=== PATIENT | male | born 1955 | race American Indian/Alaskan Native ===

== ENCOUNTER 2017-11-09 13:42 | Emergency (ER) | payer MEDICAID, SELFPAY ==
[2017-11-09 13:49] VITALS: BP 140/94; PULSE 118; RESP 22; TEMP 37.1; O2SAT 100
--- NOTE | 2017-11-09 15:05 | ED.LOWEXIN ---
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 He states that he has had discomfort to the area for the past couple of days. He denies any purulent drainage from the area. He denies any fevers or chills. No known trauma to the area with the exception of the scratch to the area. He denies any other concerns or complaints. Related Data Home Medications Medication Instructions Recorded Confirmed Pain Medication 1 dose PO DIRECTED 11/10/17 11/10/17 metformin 1 tab PO BID 11/10/17 11/10/17 metoprolol tartrate 50 mg PO BID 11/10/17 11/10/17 naloxone 1 dose INTRANASAL DIRECTED 11/10/17 11/10/17 olanzapine 10 mg PO BID 11/10/17 11/10/17 tamsulosin 0.8 mg PO DAILY 11/10/17 11/10/17 Previous Rx's Medication Instructions Recorded alprazolam [Xanax] 1 mg PO BIDP PRN #5 tab 08/13/16 clindamycin HCl 300 mg PO QID #28 cap 11/09/17 alprazolam [Xanax] 1 mg PO BID PRN #14 tab 11/11/17 aspirin 325 mg PO DAILY #90 tab 11/11/17 nitroglycerin [Nitrostat] 0.4 mg SUBLINGUAL [id number] PRN #1 11/11/17 tab Allergies Allergy/AdvReac Type Severity Reaction Status Date / Time baclofen [BACLOFEN] Allergy Intermediate REACTS TO Verified 11/10/17 04:07 HIS METFORMIN ketorolac [From TORADOL] Allergy Intermediate HIVES Verified 11/10/17 04:07 Review of Systems <ALEX Butler - Last Filed: 11/09/17 22:04> Constitutional Denies chills, Denies fever(s), Denies lethargy and Denies weakness Eyes Denies change in vision, Denies eye discharge, Denies irritation and Denies loss of vision ENT Ears, Nose, Mouth, and Throat: Denies change in voice, Denies neck pain and Denies sore throat Cardiovascular Denies chest pain, Denies irregular heart rhythm, Denies lightheadedness, Denies palpitations, Denies dyspnea, Denies dyspnea on exertion and Denies orthopnea Respiratory Denies cough, Denies dyspnea, Denies dyspnea on exertion and Denies wheezing Gastrointestinal Gastrointestinal: Denies abdominal pain, Denies change in bowel habits, Denies diarrhea, Denies nausea and Denies vomiting Genitourinary Denies hematuria, Denies flank pain, Denies urinary incontinence and Denies urinary urgency Musculoskeletal Denies neck pain Comments: Right lower leg redness and pain Integumentary/Breasts Denies pruritus, Denies erythema, Denies rash and Denies wounds Neurologic Denies confusion, Denies loss of vision and Denies weakness Psychiatric Denies anxiety, Denies confusion, Denies depression, Denies homicidal ideation and Denies suicidal ideation Endocrine Denies palpitations Allergic/Immunologic Denies wheezing Exam <ALEX Butler - Last Filed: 11/09/17 22:04> Initial Vital Signs Initial Vital Signs: Vital Signs Temperature 98.7 F 11/09/17 13:49 Pulse Rate 118 H 11/09/17 13:49 Respiratory Rate 22 11/09/17 13:49 Blood Pressure 140/94 H 11/09/17 13:49 Pulse Oximetry 100 11/09/17 13:49 Const General: cooperative and No acute distress Orientation: alert, awake, oriented x3 and not confused HENMD Mouth: oral mucosae normal and moist mucous membranes Eyes Sclera: sclerae normal Cornea: corneas normal EOM: EOM intact bilaterally Resp Effort & Inspection: normal respiratory effort, able to speak in complete sentences, no respiratory distress and no use of accessory muscles Auscultation: clear to auscultation bilaterally, no rales, no rhonchi and no wheezes Cardio Rate: regular rate Rhythm: regular rhythm Heart Sounds: no click, no gallops, no murmurs and no rubs Skin General: No jaundice and No petechiae Extrem Other: Right lower extremity with multiple areas of excoriation and picking. Area with excoriation to the right lower extremity medial aspect with small area of erythema around it. No induration and no fluctuance. Distal CMS is intact. <Carly Boyer DO - Last Filed: 11/12/17 19:59> Initial Vital Signs Initial Vital Signs: Vital Signs Temperature 98.7 F 11/09/17 13:49 Pulse Rate 118 H 11/09/17 13:49 Respiratory Rate 22 11/09/17 13:49 Blood Pressure 140/94 H 11/09/17 13:49 Pulse Oximetry 100 11/09/17 13:49 Course <ALEX Butler - Last Filed: 11/09/17 22:04> Vital Signs - 8 hr 11/09/17 15:13 Pulse Rate 113 H Respiratory Rate 18 Blood Pressure [Left Arm] 128/94 H Pulse Oximetry 100 <Carly Boyer DO - Last Filed: 11/12/17 19:59> Vital Signs - 8 hr 11/09/17 15:13 Pulse Rate 113 H Respiratory Rate 18 Blood Pressure [Left Arm] 128/94 H Pulse Oximetry 100 MDM - Extremity Injury (Lower) <ALEX Butler - Last Filed: 11/09/17 22:04> MDM Narrative Medical decision making narrative: Suspect excoriation and multiple areas of picking secondary to methamphetamine use. Elevated heart rate also believed to be secondary to methamphetamine use. Due to erythema to the right lower extremity will cover for starting cellulitis with clindamycin. He is instructed to follow up with primary care provider later this week for re-evaluation. [id number] Tylenol as needed for any discomfort. For any worsening symptoms return to the emergency room. Discharge Plan Departure Patient Disposition: Home, Self-Care Clinical Impression: Cellulitis of right leg Discharge Date/Time: 11/09/17 16:32 Interventions: ED Discharge Assessment Last Done: 11/09/17 16:27 Instructions: DI for Cellulitis -- Adult Activity Restrictions/Additional Instructions: Redness and tenderness to the right lower extremity looks like starting cellulitis was infection of the skin secondary to excoriation and scratches. You have been prescribed a antibiotic called clindamycin use as directed. Follow up with her primary care provider in the next few days for re-evaluation. For any worsening symptoms return to the emergency room. Use [id number] Tylenol as needed for any discomfort. Prescriptions: New clindamycin HCl 300 mg capsule 300 mg PO QID Qty: 28 RF: 0 No Action alprazolam [Xanax] 1 MG tablet 1 mg PO BIDP PRNQty: 5 RF: 0 metformin 1,000 mg tablet 1 tab PO BID RF: 0 metoprolol tartrate 50 mg tablet 50 mg PO BID RF: 0 naloxone 4 mg/actuation spray,non-aerosol 1 dose Intranasal DIRECTED RF: 0 tamsulosin 0.4 mg capsule,extended release 24hr 0.8 mg PO DAILY RF: 0 olanzapine 10 mg tablet 10 mg PO BID RF: 0 Pain Medication 1 dose PO DIRECTED RF: 0 aspirin 325 mg Tablet,Delayed Release (Dr/Ec) 325 mg PO DAILY Qty: 90 RF: 0 nitroglycerin [Nitrostat] 0.4 mg Tablet, Sublingual 0.4 mg Sublingual [id number] PRN (Reason: Chest Pain) Qty: 1 RF: 0 alprazolam [Xanax] 1 mg tablet 1 mg PO BID PRN (Reason: anxiety) Qty: 14 RF: 0 Referrals: Jacky Rios MD [Primary Care Provider] - <Carly Boyer DO - Last Filed: 11/12/17 19:59> [facility] I was immediately available in the department for consultation. Documentation has been reviewed. I agree with assessment and plan.
[2017-11-09 15:13] VITALS: BP 128/94; PULSE 113; RESP 18; O2SAT 100
--- NOTE | 2017-11-09 16:30 | PC.NURSE ---
Rt lower leg redness surrounding mulitple superficial abrasions, pt reports he has been scratching are for some time, distal cms intact, nontender, no swelling, cool to touch, denies never/numbness/tingling/nausea or other sx, amb ind with steady gait
== END 2017-11-09 16:32 | disposition home or self-care (01) ==
PROVIDERS: Emergency Provider Nurse Practitioner Family; Family Provider Family Medicine; PCP Family Medicine
DX: L03.115 Cellulitis of right lower limb (principal)
CPT/HCPCS: 99282

== ENCOUNTER 2017-11-10 03:50 | Observation (INO) | payer MEDICAID, SELFPAY ==
[2017-11-10] VITALS (7 sets, daily range): BP systolic 120–154; BP diastolic 59–102; PULSE 63–118; RESP 12–22; TEMP 36.1–37; O2SAT 95–100; BMI 22.8
--- NOTE | 2017-11-10 | DI.ECHO.S_ITS ---
[facility] +---------+ [facility] +---------+ : : [address] : : : : [id number] : : : : Phone: [phone] Echocardiogram Report + + :Name: RAY HART Study Date: 11/10/2017 Height: 69 in : :[facility] Weight: 155 lb : : Gender: Male BSA: 1.9 m2 : :: 1955 Age: 62 yrs BP: 130/92 mmHg: :Reason For Study: chest pain : : Performed By: Jeanette Olson : :Referring: JOSE STRANGE : + + Interpretation Summary 1) Normal left ventricular thickness, size, wall motion, and systolic function (EF 60-65%). 2) Normal right ventricular size and function. 3) No significant valvular abnormalities. 4) The right ventricular systolic pressure is estimated at 25 mmHg assuming a right atrial pressure of 3 mm Hg. 5) Compared to the Echo done 01/16/2015, pulmonary artery pressures are normal on this study. Procedure: A two-dimensional transthoracic echocardiogram with color flow and Doppler was performed. Comparison is made with the echocardiogram of 01/16/2015. The study quality was technically difficult as the patient could not be still and was unable to cooperate. Also being the reason for so much EKG artifact. The heart rate ranged between 75-95 bpm during the study. Left Ventricle: The left ventricle is normal in size, wall thickness, and systolic function without any focal wall motion abnormalities. The ejection fraction is estimated to be 60-65%. Right Ventricle: The right ventricle is mildly dilated. The right ventricular systolic function is normal. Atria: The left atrium is borderline dilated. The right atrium is normal in size. There is no Doppler evidence for an interatrial shunt. Mitral Valve: The mitral valve is normal in structure and function. There is trace mitral regurgitation. Aortic Valve: The aortic valve is normal in structure and function. There is no aortic valve stenosis. No aortic regurgitation is present. Tricuspid Valve: The tricuspid valve is normal in structure and function. There is a trace or physiologic amount of tricuspid regurgitation. The right ventricular systolic pressure is estimated at 25 mmHg assuming a right atrial pressure of 3 mm Hg. Pulmonic Valve: The pulmonic valve is normal in structure and function. There is a trace or physiologic amount of pulmonic regurgitation. Great Vessels: Aortic root is at the upper limits of normal in size. The ascending aorta is at the upper limits of normal in size. The aortic arch is at the upper limits of normal in size. The pulmonary artery is normal size. The IVC is of normal diameter and collapses greater than 50% with a sniff. This suggests a low right atrial pressure of 3 mm Hg. Pericardium/ Pleura There is no pericardial effusion. There is no pleural effusion. MMode/2D Measurements & Calculations LVIDd: 4.6 cm LVOT diam: 2.0 cm LVIDs: 3.4 cm Ao root diam: 3.9 cm FS: 26.2 % asc Aorta Diam: 3.6 cm EPSS: 0.57 cm Ao Arch Diam (distal): 3.1 cm IVSd: 0.79 cm LVPWd: 0.74 cm LV lehman. diameter/BSA (cm/m^2): 2.5 LV sys. diameter/BSA (cm/m^2): 1.8 LA A2 area: 20.1 cm2 RA long axis: 4.8 cm LA A4 area: 18.4 cm2 RA area: 13.8 cm2 LA length (vol): 5.0 cm RA vol: 33.4 ml LA vol: 63.3 ml RA : 18.0 ml/m2 LA vol index: 34.1 ml/m2 IVC diam: 1.2 cm RVD1 (basal): 2.8 cm TAPSE: 2.4 cm Doppler Measurements & Calculations Ao V2 max: 93.0 cm/sec LVOT Max Albaro: 67.4 cm/sec Ao V2 mean: 68.1 cm/sec LV V1 max P.8 mmHg Ao max P.5 mmHg LV V1 VTI: 12.5 cm Ao mean P.0 mmHg RANCHO(I,D): 2.4 cm2 Ao V2 VTI: 17.4 cm RANCHO(V,D): 2.4 cm2 sev ratio: 0.72 RANCHO indexed to BSA (cm^2/m^2): 1.3 MV E max albaro: 71.6 cm/sec TR max albaro: 233.7 cm/sec MV A max albaro: 56.8 cm/sec TR max P.8 mmHg MV E/A: 1.3 PA V2 max: 47.9 cm/sec Med Peak E' Albaro: 8.5 cm/sec PA V2 mean: 35.0 cm/sec E/E' med: 8.4 PA mean P.54 mmHg Lat Peak E' Albaro: 9.7 cm/sec E/E' lat: 7.4 E/e' average: 7.9 MV P1/2t: 73.6 msec MV 2t max albaro: 71.6 cm/sec MVA(2t): 3.0 cm2 Reading Physician:04:50 PM
[2017-11-10 04:31] LABS: Add Manual Diff / Slide Review NO; Basophils Percent Auto 0.6 % (0-2); Eosinophils Percent Auto 1.2 % (2-4); Hematocrit 38.1 % (41-53); Hemoglobin 12.8 g/dL (13.5-17.5); Lymphocytes Percent Auto 15.8 % (25-40); Mean Corpuscular HGB Conc 33.5 % (30-36); Mean Corpuscular Hemoglobin 27.7 PG (26-34); Mean Corpuscular Volume 82.7 fL (80-100); Monocytes Percent Auto 13.3 % (3-14); Neutrophils Absolute Auto 7200 /uL (3000-5900); Neutrophils Percent Auto 69.1 % (50-75); Platelet Count 230 X10^3/uL (150-400); Red Blood Cell Count 4.61 X10^6/uL (4.5-5.9); Red Cell Distribution Width 14.9 % (11.6-14.8); White Blood Cell Count 10.5 X10^3/uL (4.5-11.0)
[2017-11-10 04:39] LABS: D Dimer 740 ng/mL (<230)
[2017-11-10 04:41] LABS: Alanine Aminotransferase 123 IU/L (21-72); Albumin 4.1 g/dL (3.5-5.0); Albumin Globulin Ratio 0.9 (1.0-2.8); Alkaline Phosphatase 106 U/L (38-126); Aspartate Aminotransferase 85 IU/L (17-59); BUN Creatinine Ratio 12.5 (6-22); Bilirubin Total 0.6 mg/dL (0.2-1.3); Blood Urea Nitrogen 10 mg/dL (9-20); Calcium 9.2 mg/dL (8.4-10.2); Carbon Dioxide 21 mmol/L (22-32); Chloride 105 mmol/L (98-107); Estimated Glomerular Filt Rate > 60.0 mL/min (>60); Globulin 4.5 g/dL (1.7-4.1); Glucose 148 mg/dL (80-110); HEMOLYSIS < 15 (0-50); Lipase 66 U/L (23-300); Potassium 3.8 mmol/L (3.4-5.1); Sodium 144 mmol/L (137-145); Total Protein 8.6 g/dL (6.3-8.2)
[2017-11-10 04:52] LABS: Troponin I < 0.012 ng/mL (0.01-0.034)
--- NOTE | 2017-11-10 04:53 | DI.CT.S_ITS ---
PROCEDURE: CT ANGIO CHEST ABDOMEN PELVIS INDICATIONS: left arm and leg weakness, chest pain - dissection protocol TECHNIQUE: Precontrast 5 mm thick sections acquired from the lung apices to the iliac crests. After the administration of intravenous contrast, 2.5 mm thick sections again acquired from the lung apices to the iliac crests. Maximum intensity projection (MIP) oblique sagittal and coronal reformats were then acquired. For radiation dose reduction, the following was used: automated exposure control. COMPARISON: [facility], CT, PE STUDY (CTA CHEST), 10/23/2014, 21:49. FINDINGS: Preliminary report by lineman service or work dispatcher radiology Image quality: Excellent. AORTA: Intramural hematoma: Absent Maximum hematoma thickness: N./A. Focal contrast enhancement: Normal Dissection: Absent Josue classification: N./A. Maximum aortic diameter: 3.6 cm. Periaortic hematoma: Absent CHEST: Lungs and pleura: No acute airspace opacities. No pleural effusions or pneumothorax. Central and peripheral airways are patent and normal in caliber. Mediastinum: Heart size is normal. No pericardial effusion. Borderline mediastinal adenopathy at 1 cm short diameter by size criteria. Central pulmonary arteries are normal in size. Esophagus is normal in caliber. No hiatal hernias. Bones and chest wall: No axillary adenopathy by size criteria. Several old left-sided rib fracture deformities. Thyroid gland appears normal. No suspicious bony lesions. No vertebral body compression fractures. ABDOMEN: Vasculature: No aortic aneurysm or dissection. Atheromatous plaque. Celiac trunk and mesenteric arteries are patent. Renal arteries are also patent. Solid organs: Liver is normal in size with diffuse decreased attenuation. Gallbladder contains a stone as before. No gallbladder wall thickening or inflammation. Biliary system is non dilated. Pancreas enhances normally. Spleen is normal in size and enhancement. No adrenal nodules. Both kidneys are normal in size and enhancement, without hydronephrosis. Both kidneys contain cortical hypodensities, too small to characterize but likely simple cysts. Peritoneum and bowel: No free fluid or air. Bowel loops are normal in caliber and wall thickness. The appendix is not seen. Nodes and vessels: No retroperitoneal or mesenteric adenopathy by size criteria. Inferior vena cava is normal in morphology. Miscellaneous: Rectus diastases. Small fat filled umbilical hernia. PELVIS: Genitourinary: Bladder wall thickness is normal. Miscellaneous: Fat filled right inguinal hernia, no adenopathy. Bones: No suspicious bony lesions. No vertebral body compression fractures. IMPRESSION: 1. No aortic aneurysm or dissection is identified. Heart size appears normal. No pulmonary edema or focal consolidation. 2. Cholelithiasis without evidence of cholecystitis. 3. Diastases of the superior linea alba. Small umbilical hernia. Fat filled right inguinal hernia. Findings are concordant with the preliminary report. Dictated by: Hector Azar M.D. on 11/10/2017 at 8:12 Approved by: Hector Azar M.D. on 11/10/2017 at 8:28
[2017-11-10 05:04] LABS: Urine Amphetamines Positive (Negative); Urine Barbiturates Negative (Negative); Urine Benzodiazepines Negative (Negative); Urine Cocaine Negative (Negative); Urine MDMA Negative (Negative); Urine Methadone Negative (Negative); Urine Methamphetamines Positive (Negative); Urine Morphine/Opi cutoff 2000 Positive (Negative); Urine Oxycodone Negative (Negative); Urine Phencyclidine Negative (Negative); Urine Tetrahydrocannabinol Negative (Negative); Urine Tricyclic Antidepressant Negative (Negative)
--- NOTE | 2017-11-10 05:19 | DI.CT.S_ITS ---
PROCEDURE: CT HEAD/BRAIN WO CON INDICATIONS: left arm and leg weakness TECHNIQUE: Noncontrast 4.5 mm thick angled axial sections acquired from the foramen magnum to the vertex, with coronal and sagittal reformats. For radiation dose reduction, the following was used: automated exposure control, adjustment of mA and/or kV according to patient size. Intravenous contrast material is present secondary to CT angiogram of the chest and abdomen performed prior to scan of the head. COMPARISON: [facility], CT, HEAD WITH CONTRAST, 10/09/2014, 18:59. FINDINGS: Image quality: Diagnostic sensitivity for subtle intracranial hemorrhage diminished secondary presence of intravenous contrast. CSF spaces: Basal cisterns are patent. No extra-axial fluid collections. The ventricles are symmetric in size and shape. Brain: No intracranial bleeds or masses. There is cerebral volume loss for age, with resultant ventricular and sulcal prominence. There are periventricular and deep white matter chronic small vessel ischemic changes. There is intracranial internal carotid artery atherosclerosis. Skull and face: Calvarium and visualized facial bones appear intact, without suspicious lesions. Sinuses: Visualized sinuses and mastoids are clear. IMPRESSION: No acute intracranial disease process. Dictated by: Herlinda Farley MD, PhD on 11/10/2017 at 7:26 Approved by: Herlinda Farley MD, PhD on 11/10/2017 at 7:29
--- NOTE | 2017-11-10 05:26 | PC.NURSE ---
pt reports having difficulty reading stating everything is blurry. pt reports difficulty with balance, states he's been tripping on air all day. When asked to clarify states He's stumbling and tripping on stuff that ain't there.
[2017-11-10 06:55] LABS: Troponin I < 0.012 ng/mL (0.01-0.034)
[2017-11-10] MEDS: ASPIRIN 81 MG TAB 324 MG PO (06:55)
--- NOTE | 2017-11-10 06:55 | ED.CHESTPAIN ---
HPI - Chest Pain General Chief Complaint: Chest Pain Stated Complaint: shortness of breath had two heart attacks History of Present Illness HPI narrative: HPI 62-year-old male smoker with active ongoing IVDU presents for evaluation of one hour of poorly characterized substernal chest pain that does not appear to be rating, endorses poorly described left hand and left foot paresthesias as well as a possible change in gait. Denies fevers, chills, headache, changes in vision or hearing. Patient endorses a history of Morgellons disease. Patient reports an episode of chest pain approximately 10 years ago after which she received a stress test those reportedly abnormal enduring discussion of cardiac catheterization would likely stenting the patient walked out of the hospital and received no further care. The patient walked out as he did not want to consider having a stent. M/S/F/SocHx notable for: please see HPI; remainder reviewed with patient and in chart. ROS: Negative constitutional, eye, cardiovascular, pulmonary, GI, , MSK, skin, neurologic, psychiatric, endocrine unless noted in the HPI. Exam Gen: Pleasant, non-toxic appearing, resting comfortably. HEENT: NC, AT, PEERL, EOMI. Resp: Clear to auscultation bilaterally, normal work of breathing, no accessory muscle usage. Card: Regular rate and rhythm with no murmurs, rubs, or gallops, extremities warm and well perfused. GI: Non-tender to palpation throughout all quadrants, no focal tenderness at McBurney's point, negative Draper's sign, non-distended, no rebound or guarding. : No suprapubic tenderness to palpation. MSK: No visible deformities, strength and tone without visually appreciable deficit. Vascular: 2+ radial pulses bilaterally, both feet warm and well perfused with 1+ DP pulses bilaterally. Skin: multiple skin picking allen, otherwise normal color with no further appreciable lesions. Neuro: Gen AO x 3, no facial asymmetry, no gaze preference, no slurring of speech. CN II-III: pupils equal and reactive (4->2mm bilaterally); III, IV, : EOMI, V1-V3: sensation to touch bilaterally intact; VII: no facial asymmetry (frown / smile); VIII: no nystagmus; X: phonation intact, uvula midline; XI: trapezius 5/5 bilaterally, XII: tongue midline. Cerebellar: no pronator drift, bilateral upper extremities without dysmetria. Psych: Mood and affect appropriate. Labs / Imaging: EKG: SR 114 bpm, nonspecific ST segment depressions in V3 through V6, no further ST segment changes. No LBBB. EKG (repeat): SR 89 bpm, reduction in ST segment depressions in leads V4-V6. No further changes. WBC 10.5, HB 12.8, d-dimer 740, NA 144, K 3.8, total bilirubin 0.6, AST 85, ALT 123, ALP 106, lipase 66, UDS with opiates, amphetamines, and methamphetamines. Troponin (4:15 AM) <0.012, troponin (6:25 AM) pending. CT head: no acute intracranial abnormality. CTA chest/abdomen/pelvis: no acute intrathoracic abnormalities. Minimal chronic changes. Borderline mediastinal incident. Old rib fractures. Cholelithiasis. MDM Previous chart, nursing note, labs, imaging, and vitals reviewed. A: 62-year-old male smoker with active ongoing IVDU presents for evaluation of one hour of poorly characterized substernal chest pain that does not appear to be rating, endorses poorly described left hand and left foot paresthesias as well as a possible change in gait. DDx: ACS, unstable angina, PE, dissection, pneumothorax, biliary disease, pancreatitis, pericardial effusion, pleural effusion, pericarditis, myocarditis, CVA, chest pain secondary to stimulant abuse. Evaluation: unstable angina felt to be the most likely cause of the patient's symptoms at the time of his evaluation in the emergency department. Patient changes in ST segment depressions that appear to be rate related, and had a relatively exclusionary remainder of his evaluation. The patient's HEART score is 6. doubt ACS given a non-ischemic ECG and negative serial troponins (initial ECG with nonspecific ST segment changes, repeat - when the patient was resting and had resolution of tachycardia - was without evidence of ST segment changes). Similarly, no evidence of pericarditis or myocarditis. Imaging without evidence of dissection, pneumothorax, pleural effusions, pericardial effusion. Patient neuro exam is without objective focal deficits, CT head is unremarkable, and there are no high-risk features to suggest the posterior fossa stroke that require an MRI for definitive evaluation. Lipase WNL, given the absence of right upper quadrant pain in her normal bilirubin and ALP strongly doubt choledocholithiasis/cholecystitis/cholangitis. CT does not cholelithiasis, however the patient's overall presentation is not strongly suggestive of biliary colic. Also considered on the differential with endocarditis, this is felt to be less likely given the absence of leukocytosis or fever. No clear evidence of esophageal rupture or impending rupture. PE was considered on the differential, the patient had an elevated d-dimer, however his CTA was protocolized to evaluate for dissection as this was felt to be the most high-risk diagnosis that the patient may reasonably have, no significant abnormalities were noted on this imaging, and as the patient had resolution of his tachycardia with rest, was without shortness breath, hypoxemia, or hypotension further emergent evaluation in the ED is not felt to be presently warranted, further evaluation deferred to the admitting physician. With respect to the concerns of the patient's possible unstable angina discussion was had regarding the patient's wishes for goals of treatment. Patient notes that in contrast to his prior interaction he would like to pursue evaluation that may lead to cardiac catheterization and/or surgery or stenting. As cardiology is not available at this facility at [facility] cardiology was contacted. Discussed case with Dr. Buckley, patient appropriate for stress test, [facility] cardiology would accept patient after positive stress test or positive troponin. ED Course: aspirin given. Disposition: patient admitted for further care. Impression: chest pain. (please reference below for remainder of encounter information) HEART Calculation: Hx - 1, EKG - 2, age - 1, risk factors - 2, troponin - 0; 30 day MACE: 50-65%. Related Data Previous Rx's Medication Instructions Recorded alprazolam [Xanax] 1 mg PO BIDP PRN #5 tab 08/13/16 olanzapine [Zyprexa] 10 mg PO BID #28 tab 08/13/16 doxycycline hyclate 100 mg PO Q12H #20 cap 11/01/16 cephalexin [Keflex] 500 mg PO TID #30 cap 11/07/16 sulfamethoxazole-trimethoprim 1 tab PO BID #20 tab 11/07/16 sulfamethoxazole-trimethoprim 1 tab PO BID #14 tab 02/05/17 mupirocin 0 jose TOPICAL TID #22 gm 02/10/17 mupirocin 0 jose TOPICAL TID #22 gm 03/10/17 clindamycin HCl 300 mg PO QID #28 cap 11/09/17 Allergies Allergy/AdvReac Type Severity Reaction Status Date / Time baclofen [BACLOFEN] Allergy Intermediate REACTS TO Verified 11/10/17 04:07 HIS METFORMIN ketorolac [From TORADOL] Allergy Intermediate HIVES Verified 11/10/17 04:07 PFS Social History Smoking Status: Current every day smoker Exam Initial Vital Signs Initial Vital Signs: Vital Signs Temperature 98.5 F 11/10/17 04:02 Pulse Rate 118 H 11/10/17 04:02 Respiratory Rate 22 11/10/17 04:02 Blood Pressure 154/102 H 11/10/17 04:02 Pulse Oximetry 100 11/10/17 04:02 Course Orders Ordered: ED Orders 11/10/17 EKG-12 Lead Routine 11/10/17 04:15 Complete Blood Count AUTO DIFF Stat Comprehensive Metabolic Panel Stat D Dimer Stat Lipase Stat Troponin I Stat 11/10/17 04:52 Rapid Drug Screen, Urine Stat 11/10/17 04:53 CT angio chest abdomen pelvis Stat 11/10/17 05:19 CT head/brain wo con Stat 11/10/17 06:24 EKG-12 Lead Stat 11/10/17 06:25 Troponin I Stat 11/10/17 06:52 Consult to Physician Routine Discontinued Medications Aspirin (Aspirin Chew) 324 mg PO NOW ONE Stop: 11/10/17 06:49 Vital Signs - 8 hr 11/10/17 04:02 11/10/17 05:21 Temperature 98.5 F Pulse Rate 118 H 104 H Respiratory Rate 22 12 Blood Pressure 154/102 H Blood Pressure [Left Arm] 143/95 H Pulse Oximetry 100 100 MDM - Chest Pain Lab Data Result diagrams: 11/10/17 04:15 11/10/17 04:15 Lab Results 11/10/17 11/10/17 11/10/17 Range/Units 04:15 04:15 04:15 WBC 10.5 (4.5-11.0) X10^3/uL RBC 4.61 (4.5-5.9) X10^6/uL Hgb 12.8 L (13.5-17.5) g/dL Hct 38.1 L (41-53) % MCV 82.7 (80-100) fL MCH 27.7 (26-34) PG MCHC 33.5 (30-36) % RDW 14.9 H (11.6-14.8) % Plt Count 230 (150-400) X10^3/uL Neut % (Auto) 69.1 (50-75) % Lymph % (Auto) 15.8 L (25-40) % [place] % (Auto) 13.3 (3-14) % Eos % (Auto) 1.2 L (2-4) % Baso % (Auto) 0.6 (0-2) % Neut # (Auto) 7200 H (1869-3244) /uL D-Dimer 740 H (<230) ng/mL Sodium 144 (137-145) mmol/L Potassium 3.8 (3.4-5.1) mmol/L Chloride 105 (98-107) mmol/L Carbon Dioxide 21 L (22-32) mmol/L BUN 10 (9-20) mg/dL Creatinine 0.80 (0.66-1.25) mg/dL Estimated GFR > 60.0 (>60) mL/min BUN/Creatinine Ratio 12.5 (6-22) Glucose 148 H (80-110) mg/dL Calcium 9.2 (8.4-10.2) mg/dL Total Bilirubin 0.6 (0.2-1.3) mg/dL AST 85 H (17-59) IU/L ALT 123 H (21-72) IU/L Alkaline Phosphatase 106 (38-126) U/L Troponin I < 0.012 (0.01-0.034) ng/mL Total Protein 8.6 H (6.3-8.2) g/dL Albumin 4.1 (3.5-5.0) g/dL Globulin 4.5 H (1.7-4.1) g/dL Albumin/Globulin Ratio 0.9 L (1.0-2.8) Lipase 66 (23-300) U/L Urine Opiates Screen (Negative) Ur Oxycodone Screen (Negative) Urine Methadone Screen (Negative) Ur Barbiturates Screen (Negative) U Tricyclic Antidepress (Negative) Ur Phencyclidine Scrn (Negative) Ur Amphetamines Screen (Negative) U Methamphetamines Scrn (Negative) Ur MDMA Scrn (Ecstasy) (Negative) U Benzodiazepines Scrn (Negative) Urine Cocaine Screen (Negative) U Marijuana (THC) Screen (Negative) 11/10/17 Range/Units 04:52 WBC (4.5-11.0) X10^3/uL RBC (4.5-5.9) X10^6/uL Hgb (13.5-17.5) g/dL Hct (41-53) % MCV (80-100) fL MCH (26-34) PG MCHC (30-36) % RDW (11.6-14.8) % Plt Count (150-400) X10^3/uL Neut % (Auto) (50-75) % Lymph % (Auto) (25-40) % [place] % (Auto) (3-14) % Eos % (Auto) (2-4) % Baso % (Auto) (0-2) % Neut # (Auto) (1721-1904) /uL D-Dimer (<230) ng/mL Sodium (137-145) mmol/L Potassium (3.4-5.1) mmol/L Chloride (98-107) mmol/L Carbon Dioxide (22-32) mmol/L BUN (9-20) mg/dL Creatinine (0.66-1.25) mg/dL Estimated GFR (>60) mL/min BUN/Creatinine Ratio (6-22) Glucose (80-110) mg/dL Calcium (8.4-10.2) mg/dL Total Bilirubin (0.2-1.3) mg/dL AST (17-59) IU/L ALT (21-72) IU/L Alkaline Phosphatase (38-126) U/L Troponin I (0.01-0.034) ng/mL Total Protein (6.3-8.2) g/dL Albumin (3.5-5.0) g/dL Globulin (1.7-4.1) g/dL Albumin/Globulin Ratio (1.0-2.8) Lipase (23-300) U/L Urine Opiates Screen Positive H (Negative) Ur Oxycodone Screen Negative (Negative) Urine Methadone Screen Negative (Negative) Ur Barbiturates Screen Negative (Negative) U Tricyclic Antidepress Negative (Negative) Ur Phencyclidine Scrn Negative (Negative) Ur Amphetamines Screen Positive H (Negative) U Methamphetamines Scrn Positive H (Negative) Ur MDMA Scrn (Ecstasy) Negative (Negative) U Benzodiazepines Scrn Negative (Negative) Urine Cocaine Screen Negative (Negative) U Marijuana (THC) Screen Negative (Negative) Discharge Plan Departure Patient Disposition: Admitted as Observation Clinical Impression: Chest pain
--- NOTE | 2017-11-10 08:06 | PC.NURSE ---
Day shift: Arrived on unit at approx 0750 from ED. Pt urinated and is in bed now. He is calm and cooperative. No nausea. Reports no pain at this time. Tele placed by TECHNICAL WRITING LEAD/MGR and HVAC ENGINEER aware. Pt agrees to not get OOB w/o help from staff. Oriented to room and call light.
--- NOTE | 2017-11-10 08:34 | PC.NURSE ---
Day shift: No MD orders at this time.
--- NOTE | 2017-11-10 09:37 | PC.NURSE ---
Day shift: Pt asked Is the doctor going to come? at this time. Call light in reach. Pt repositioning himself often in bed. States he has some back pain. Pt also stated he has DM and takes Metformin. His BG was 123 on arrival to this unit.
--- NOTE | 2017-11-10 10:25 | PC.NURSE ---
Day shift: Pt c/o low back pain 01/02. aware.
[2017-11-10] MEDS: OXYCODONE IR 5 MG TABLET 10 MG PO ×3 (10:50→19:55)
--- NOTE | 2017-11-10 10:50 | P.HP_ITS ---
History of Present Illness Date Patient Seen: 11/10/17 Time Patient Seen: 10:46 Chief complaint: shortness of breath had two heart attacks Narrative: 62-year-old male presents with chest pain somewhat atypical presentation with chest pain at rest. Also complaining of severe back pain. He was seen earlier the day before with some cellulitis in his lower extremity placed on clindamycin then returned again this morning with chest pain he says that he has had a history of cardiac problems 10 years ago who recommended a stent but he declined at that time. Does have a history of drug abuse admits to using heroin as recently as 3 weeks ago and had been on methadone until he had a falling out with his counselor recently. Patient History Medical History Back pain (Acute) Heroin abuse (Acute) Heroin addiction (Acute) Family & Social History Social History: household members spouse Prior Living Arrangements RV Safety & Behavioral: Feels Safe in Current Yes Environment Been Physically Hurt or No Threatened By a Person Suicidal Ideation Description None Suicide Plan Description No Plan Tobacco & Substance use: Tobacco type cigarettes Smoking Status Current every day smoker alcohol intake former alcohol intake frequency 0-2 drinks per day Substance Use Type IV drugs Meds Home Medications Medication Instructions Recorded Confirmed Type alprazolam [Xanax] 1 mg PO BIDP PRN #5 tab 08/13/16 11/10/17 Rx clindamycin HCl 300 mg PO QID #28 cap 11/09/17 11/10/17 Rx Pain Medication 1 dose PO DIRECTED 11/10/17 11/10/17 History metformin 1 tab PO BID 11/10/17 11/10/17 History metoprolol tartrate 50 mg PO BID 11/10/17 11/10/17 History naloxone [Narcan] 1 dose INTRANASAL DIRECTED 11/10/17 11/10/17 History olanzapine 10 mg PO BID 11/10/17 11/10/17 History tamsulosin 0.8 mg PO DAILY 11/10/17 11/10/17 History Allergies Allergy/AdvReac Type Severity Reaction Status Date / Time baclofen [BACLOFEN] Allergy Intermediate REACTS TO Verified 11/10/17 04:07 HIS METFORMIN ketorolac [From TORADOL] Allergy Intermediate HIVES Verified 11/10/17 04:07 Review of Systems Review of Systems All systems reviewed & are unremarkable except as noted in HPI and below Exam Vital Signs (past 8 hours): Vital Signs - 8 hr 3 11/10/17 04:02 11/10/17 05:21 Temperature 98.5 F Pulse Rate 118 H 104 H Respiratory Rate 22 12 Blood Pressure 154/102 H Blood Pressure [Left Arm] 143/95 H Pulse Oximetry 100 100 Pulse Oximetry 100 Oxygen Delivery Method Room Air Narrative Exam Narrative: Middle-aged male looking much older than his stated age slightly unkept somewhat agitated Oropharynx clear Neck is supple Lungs clear Heart regular rhythm Abdomen soft nontender Skin numerous lesions on the upper extremities bilateral excoriations and papules noted Neuro exam awake alert no focal deficit Objective Labs Result Diagrams: 11/10/17 04:15 11/10/17 04:15 Labs: Laboratory Results - last 24 hr 11/10/17 11/10/17 11/10/17 04:15 04:15 04:15 WBC 10.5 RBC 4.61 Hgb 12.8 L Hct 38.1 L MCV 82.7 MCH 27.7 MCHC 33.5 RDW 14.9 H Plt Count 230 Neut % (Auto) 69.1 Lymph % (Auto) 15.8 L [place] % (Auto) 13.3 Eos % (Auto) 1.2 L Baso % (Auto) 0.6 Neut # (Auto) 7200 H D-Dimer 740 H Sodium 144 Potassium 3.8 Chloride 105 Carbon Dioxide 21 L BUN 10 Creatinine 0.80 Estimated GFR > 60.0 BUN/Creatinine Ratio 12.5 Glucose 148 H Calcium 9.2 Total Bilirubin 0.6 AST 85 H ALT 123 H Alkaline Phosphatase 106 Troponin I < 0.012 Total Protein 8.6 H Albumin 4.1 Globulin 4.5 H Albumin/Globulin Ratio 0.9 L Lipase 66 Urine Opiates Screen Ur Oxycodone Screen Urine Methadone Screen Ur Barbiturates Screen U Tricyclic Antidepress Ur Phencyclidine Scrn Ur Amphetamines Screen U Methamphetamines Scrn Ur MDMA Scrn (Ecstasy) U Benzodiazepines Scrn Urine Cocaine Screen U Marijuana (THC) Screen 11/10/17 11/10/17 04:52 06:25 WBC RBC Hgb Hct MCV MCH MCHC RDW Plt Count Neut % (Auto) Lymph % (Auto) [place] % (Auto) Eos % (Auto) Baso % (Auto) Neut # (Auto) D-Dimer Sodium Potassium Chloride Carbon Dioxide BUN Creatinine Estimated GFR BUN/Creatinine Ratio Glucose Calcium Total Bilirubin AST ALT Alkaline Phosphatase Troponin I < 0.012 Total Protein Albumin Globulin Albumin/Globulin Ratio Lipase Urine Opiates Screen Positive H Ur Oxycodone Screen Negative Urine Methadone Screen Negative Ur Barbiturates Screen Negative U Tricyclic Antidepress Negative Ur Phencyclidine Scrn Negative Ur Amphetamines Screen Positive H U Methamphetamines Scrn Positive H Ur MDMA Scrn (Ecstasy) Negative U Benzodiazepines Scrn Negative Urine Cocaine Screen Negative U Marijuana (THC) Screen Negative Assessment & Plan Plan: Assessment/Plan Narrative: Chest pain atypical presentation EKG unremarkable troponin normal at this point. Patient will be put under observation for serial troponins and possible stress test if needed. 2. History of heroin abuse addiction had been on methadone. Patient conveniently is allergic to Toradol. Plan to place him on oxycodone as needed for back pain Quality VTE Deep Vein Thrombosis/Pulmonary Embolism Present on Admission: No
[2017-11-10] MEDS: TAMSULOSIN 0.4 MG CAPSULE 0.8 MG PO (10:51)
[2017-11-10] MEDS: METOPROLOL 50 MG TABLET PO ×2 (10:51→20:49)
[2017-11-10] MEDS: OLANZapine 2.5 MG TABLET 10 MG PO ×2 (10:52→20:49)
[2017-11-10] MEDS: ALPRAZolam 0.25 MG TABLET 1 MG PO ×2 (10:58→17:35)
[2017-11-10] MEDS: ENOXAPARIN 40 MG/0.4 ML SYRINGE SUBCUT (11:49)
[2017-11-10] MEDS: CLINDAMYCIN 150 MG CAPSULE 300 MG PO ×3 (11:49→20:49)
[2017-11-10 12:20] LABS: Troponin I 0.013 ng/mL (0.01-0.034)
[2017-11-10 12:31] LABS: Cholesterol 124 mg/dL (140-199); HDL Cholesterol 19 mg/dL (40-60); LDL Cholesterol Calculated 81 mg/dL (<100); Triglycerides 118 mg/dL (35-150)
[2017-11-10] MEDS: METFORMIN HCL 500 MG TABLET PO (16:41)
[2017-11-10 21:48] LABS: Troponin I < 0.012 ng/mL (0.01-0.034)
[2017-11-11 00:20] VITALS: O2SAT 96
[2017-11-11] MEDS: OXYCODONE IR 5 MG TABLET 10 MG PO ×2 (01:53→08:30)
[2017-11-11] MEDS: MAG HYDROX/ALUM/SIMETH 30 ML UDC PO (02:24)
--- NOTE | 2017-11-11 04:42 | PC.NURSE ---
NOC Note: Pt was comfortable and sleeping at shift change, at 0150 pt reproted having chronic pain in low back of 02/02, prn oxycodone given and at 0220 pt c/o upset stomach and acid reflux, prn maalox was given then pt was able to go back to sleep. Pt is sleeping at this time.
[2017-11-11] MEDS: PANTOPRAZOLE 20 MG TABLET PO (05:48)
[2017-11-11 07:00] VITALS: BP 105/70; PULSE 72; RESP 16; TEMP 36.5; O2SAT 97
[2017-11-11] MEDS: METOPROLOL 50 MG TABLET PO (08:30)
[2017-11-11] MEDS: ALPRAZolam 0.25 MG TABLET 1 MG PO (08:30)
[2017-11-11] MEDS: ENOXAPARIN 40 MG/0.4 ML SYRINGE SUBCUT (08:30)
[2017-11-11] MEDS: CLINDAMYCIN 150 MG CAPSULE 300 MG PO (08:31)
[2017-11-11] MEDS: TAMSULOSIN 0.4 MG CAPSULE 0.8 MG PO (08:31)
[2017-11-11] MEDS: METFORMIN HCL 500 MG TABLET PO (08:31)
[2017-11-11] MEDS: ASPIRIN EC 325 MG TABLET PO (08:31)
[2017-11-11] MEDS: OLANZapine 2.5 MG TABLET 10 MG PO (08:31)
--- NOTE | 2017-11-11 09:32 | PM.PN.1 ---
Subjective Date Patient Seen: 11/11/17 Time Patient Seen: 09:32 Interval history: Patient sitting in bed in no acute distress. Denies chest pain for last 18 hr. Exam Vital Signs (past 8 hours): Vital Signs - 8 hr 11/11/17 07:00 Temperature 97.7 F Pulse Rate 72 Respiratory Rate 16 Blood Pressure 105/70 Pulse Oximetry 97 Pulse Oximetry 97 Oxygen Delivery Method Room Air Const General: cooperative and comfortable Nutritional Appearance: average body habitus and overweight Orientation: alert, awake and oriented x3 Other: Slightly disheveled in appearance. [facility] Head: normal to inspection, normocephalic and atraumatic Ears: hearing grossly normal bilaterally Mouth: oral mucosae normal Eyes General: appearance normal, both eyes and all related structures Pupils: PERRL and pupil size (2.0 mm) bilaterally Neck Neck: normal visual inspection, trachea midline and supple Other: No JVD or lymphadenopathy. Chest Chest: normal inspection of the chest Resp Effort & Inspection: normal respiratory effort and able to speak in complete sentences Auscultation: clear to auscultation bilaterally Cardio Rate: regular rate Rhythm: regular rhythm Heart Sounds: S1 normal and S2 normal Other: No murmurs, gallops, rubs or clicks. GI Inspection: normal to inspection Palpation: soft Auscultation: normal bowel sounds Other: Unremarkable Back/Spine/Pelvis Back: normal to inspection and back tenderness (Secondary to lying in bed.) Skin Other: Numerous bilateral excoriations and papular lesions on the upper extremities and lower extremities. All appear to be in the healing stages. Objective Labs Result Diagrams: 11/10/17 04:15 11/10/17 04:15 Labs: Laboratory Results - last 24 hr 11/10/17 11/10/17 11/10/17 21:15 Unknown Unknown Troponin I < 0.012 0.013 Triglycerides 118 Cholesterol 124 L LDL Cholesterol, Calc 81 HDL Cholesterol 19 L Assessment & Plan Plan: Assessment/Plan Narrative: 1. Chest pain atypical presentation: EKG unremarkable, troponin normal x4 at this point. Echocardiogram showed ejection fraction of 60-65%. His chest and abdominal CT was negative for aortic aneurysm, and pulmonary edema. There is evidence of cholelithiasis without cholecystitis. He also has a small umbilical hernia. He states he gets short of breath just walking short distances. Oxygen saturations on room air remained in the mid to high 90s. Will see if we can schedule stress test for him today. 2. History of heroin abuse addiction had been on methadone. Patient conveniently is allergic to Toradol. His toxicology screen was positive for urine opiates, amphetamines and methamphetamines. Taking oxycodone as needed for back pain every 4-6 hours. States he is willing to go back to seek counseling to stop IV drug use. Lesions on upper lower extremities most likely related to IV drug use as well as Morgellons disease. No evidence of cellulitis at this time. 3. Tobacco dependence: Patient has cut back from 1 pack per day to approximately 5-6 cigarettes per day. Desires at this point to stop smoking entirely. 4. Disposition: The emergency room physician discussed this case with Dr. Buckley, and the patient is appropriate for stress testing. Schedule cardiology would accept the patient if the stress test is positive. Otherwise this patient will be ready for discharge this afternoon. Quality VTE Deep Vein Thrombosis/Pulmonary Embolism Present on Admission: No
[2017-11-11 11:00] VITALS: BP 105/78; PULSE 72; RESP 18; TEMP 36.2; O2SAT 100
--- NOTE | 2017-11-11 11:36 | P.DS_ITS ---
History of Present Illness Date Patient Seen: 11/11/17 Time Patient Seen: 11:31 Chief complaint: shortness of breath had two heart attacks Narrative: 62-year-old male smoker with active ongoing IVDU presents for evaluation of one hour of poorly characterized substernal chest pain that does not appear to be rating, endorses poorly described left hand and left foot paresthesias as well as a possible change in gait. Denies fevers, chills, headache, changes in vision or hearing. Patient endorses a history of Morgellons disease. Patient reports an episode of chest pain approximately 10 years ago after which she received a stress test those reportedly abnormal enduring discussion of cardiac catheterization would likely stenting the patient walked out of the hospital and received no further care. The patient walked out as he did not want to consider having a stent. Discharge Providers Date of admission: 11/10/17 07:51 Primary care physician: Jacky Rios MD Consults: 11/10/17 06:52 Consult to Physician Routine Comment: Consulting Provider: Jose Strange Reason for consultation: chest pain Has provider been notified: Yes Discharge provider: ALEX Collins Summary Discharge Diagnosis: 1. Atypical chest pain 2. Heroin addiction 3. Tobacco dependence Hospital Course: This is a summary of a 1 day hospitalization for this individual who presented to the emergency room on the 10 of November with atypical chest pain, left arm and left leg weakness Patient has been asymptomatic and pain-free since admission. Troponin levels were negative x4. His echocardiogram revealed a ejection fraction of 66-65%. There were no significant valvular abnormalities. A CT of the chest abdomen and pelvis revealed no aortic aneurysm, heart size normal, no pulmonary edema or consolidation. He does have a stone in his gallbladder but no evidence of cholecystitis. He was continued on his home medications, and his low back pain was managed with p.o. oxycodone. He also has a small umbilical hernia. He has had CC revealed no acute intracranial disease process. While there is low probability that his discomfort was from a cardiac source he would benefit from an outpatient nuclear med exercise stress test. He has been counseled about tobacco cessation and resources for his heroin addiction. Status at Discharge Functional status at discharge: independent ambulation Overall status at discharge: patient is not back to baseline Time Spent with Patient Greater than 30 minutes Exam Vital Signs (past 8 hours): Vital Signs - 8 hr 3 11/11/17 07:00 Temperature 97.7 F Pulse Rate 72 Respiratory Rate 16 Blood Pressure 105/70 Pulse Oximetry 97 Pulse Oximetry 97 Oxygen Delivery Method Room Air Narrative Exam Narrative: General: cooperative and comfortable Nutritional Appearance: average body habitus and overweight Orientation: alert, awake and oriented x3 Other: Slightly disheveled in appearance. [facility] Head: normal to inspection, normocephalic and atraumatic Ears: hearing grossly normal bilaterally Mouth: oral mucosae normal Eyes General: appearance normal, both eyes and all related structures Pupils: PERRL and pupil size (2.0 mm) bilaterally Neck Neck: normal visual inspection, trachea midline and supple Other: No JVD or lymphadenopathy. Chest Chest: normal inspection of the chest Resp Effort & Inspection: normal respiratory effort and able to speak in complete sentences Auscultation: clear to auscultation bilaterally Cardio Rate: regular rate Rhythm: regular rhythm Heart Sounds: S1 normal and S2 normal Other: No murmurs, gallops, rubs or clicks. GI Inspection: normal to inspection Palpation: soft Auscultation: normal bowel sounds Other: Unremarkable Back/Spine/Pelvis Back: normal to inspection and back tenderness (Secondary to lying in bed.) Skin Other: Numerous bilateral excoriations and papular lesions on the upper extremities and lower extremities. All appear to be in the healing stages. Objective Labs Result Diagrams: 11/10/17 04:15 11/10/17 04:15 Labs: Laboratory Results - last 24 hr 11/10/17 11/10/17 11/10/17 21:15 Unknown Unknown Troponin I < 0.012 0.013 Triglycerides 118 Cholesterol 124 L LDL Cholesterol, Calc 81 HDL Cholesterol 19 L Name: RAY HART Study Date: 11/10/2017 Height: 69 in : :[facility] Weight: 155 lb : : Gender: Male BSA: 1.9 m2 : :: 1955 Age: 62 yrs BP: 130/92 mmHg: :Reason For Study: chest pain : : Performed By: Jeanette Olson : :Referring: JOSE STRANGE : + + Interpretation Summary 1) Normal left ventricular thickness, size, wall motion, and systolic function (EF 60-65%). 2) Normal right ventricular size and function. 3) No significant valvular abnormalities. 4) The right ventricular systolic pressure is estimated at 25 mmHg assuming a right atrial pressure of 3 mm Hg. 5) Compared to the Echo done 01/16/2015, pulmonary artery pressures are normal on this study. Procedure: A two-dimensional transthoracic echocardiogram with color flow and Doppler was performed. Comparison is made with the echocardiogram of 01/16/2015. The study quality was technically difficult as the patient could not be still and was unable to cooperate. Also being the reason for so much EKG artifact. The heart rate ranged between 75-95 bpm during the study. Left Ventricle: The left ventricle is normal in size, wall thickness, and systolic function without any focal wall motion abnormalities. The ejection fraction is estimated to be 60-65%. Right Ventricle: The right ventricle is mildly dilated. The right ventricular systolic function is normal. Atria: The left atrium is borderline dilated. The right atrium is normal in size. There is no Doppler evidence for an interatrial shunt. Mitral Valve: The mitral valve is normal in structure and function. There is trace mitral regurgitation. Aortic Valve: The aortic valve is normal in structure and function. There is no aortic valve stenosis. No aortic regurgitation is present. Tricuspid Valve: The tricuspid valve is normal in structure and function. There is a trace or physiologic amount of tricuspid regurgitation. The right ventricular systolic pressure is estimated at 25 mmHg assuming a right atrial pressure of 3 mm Hg. Pulmonic Valve: The pulmonic valve is normal in structure and function. There is a trace or physiologic amount of pulmonic regurgitation. Great Vessels: Aortic root is at the upper limits of normal in size. The ascending aorta is at the upper limits of normal in size. The aortic arch is at the upper limits of normal in size. The pulmonary artery is normal size. The IVC is of normal diameter and collapses greater than 50% with a sniff. This suggests a low right atrial pressure of 3 mm Hg. Pericardium/ Pleura There is no pericardial effusion. There is no pleural effusion. MMode/2D Measurements & Calculations LVIDd: 4.6 cm LVOT diam: 2.0 cm LVIDs: 3.4 cm Ao root diam: 3.9 cm FS: 26.2 % asc Aorta Diam: 3.6 cm EPSS: 0.57 cm Ao Arch Diam (distal): 3.1 cm IVSd: 0.79 cm LVPWd: 0.74 cm LV lehman. diameter/BSA (cm/m^2): 2.5 LV sys. diameter/BSA (cm/m^2): 1.8 LA A2 area: 20.1 cm2 RA long axis: 4.8 cm LA A4 area: 18.4 cm2 RA area: 13.8 cm2 LA length (vol): 5.0 cm RA vol: 33.4 ml LA vol: 63.3 ml RA : 18.0 ml/m2 LA vol index: 34.1 ml/m2 IVC diam: 1.2 cm RVD1 (basal): 2.8 cm TAPSE: 2.4 cm Doppler Measurements & Calculations Ao V2 max: 93.0 cm/sec LVOT Max Albaro: 67.4 cm/sec Ao V2 mean: 68.1 cm/sec LV V1 max P.8 mmHg Ao max P.5 mmHg LV V1 VTI: 12.5 cm Ao mean P.0 mmHg RANCHO(I,D): 2.4 cm2 Ao V2 VTI: 17.4 cm RANCHO(V,D): 2.4 cm2 sev ratio: 0.72 RANCHO indexed to BSA (cm^2/m^2): 1.3 MV E max albaro: 71.6 cm/sec TR max albaro: 233.7 cm/sec MV A max albaro: 56.8 cm/sec TR max P.8 mmHg MV E/A: 1.3 PA V2 max: 47.9 cm/sec Med Peak E' Albaro: 8.5 cm/sec PA V2 mean: 35.0 cm/sec E/E' med: 8.4 PA mean P.54 mmHg Lat Peak E' Albaro: 9.7 cm/sec E/E' lat: 7.4 E/e' average: 7.9 MV P1/2t: 73.6 msec MV P1/2t max albaro: 71.6 cm/sec MVA(P1/2t): 3.0 cm2 Reading Physician:04:50 PM PROCEDURE: CT ANGIO CHEST ABDOMEN PELVIS INDICATIONS: left arm and leg weakness, chest pain - dissection protocol TECHNIQUE: Precontrast 5 mm thick sections acquired from the lung apices to the iliac crests. After the administration of intravenous contrast, 2.5 mm thick sections again acquired from the lung apices to the iliac crests. Maximum intensity projection (MIP) oblique sagittal and coronal reformats were then acquired. For radiation dose reduction, the following was used: automated exposure control. COMPARISON: [facility], CT, PE STUDY (CTA CHEST), 10/23/2014, 21:49. FINDINGS: Preliminary report by slot shift supervisor radiology Image quality: Excellent. AORTA: Intramural hematoma: Absent Maximum hematoma thickness: N./A. Focal contrast enhancement: Normal Dissection: Absent Josue classification: N./A. Maximum aortic diameter: 3.6 cm. Periaortic hematoma: Absent CHEST: Lungs and pleura: No acute airspace opacities. No pleural effusions or pneumothorax. Central and peripheral airways are patent and normal in caliber. Mediastinum: Heart size is normal. No pericardial effusion. Borderline mediastinal adenopathy at 1 cm short diameter by size criteria. Central pulmonary arteries are normal in size. Esophagus is normal in caliber. No hiatal hernias. Bones and chest wall: No axillary adenopathy by size criteria. Several old left -sided rib fracture deformities. Thyroid gland appears normal. No suspicious bony lesions. No vertebral body compression fractures. ABDOMEN: Vasculature: No aortic aneurysm or dissection. Atheromatous plaque. Celiac trunk and mesenteric arteries are patent. Renal arteries are also patent. Solid organs: Liver is normal in size with diffuse decreased attenuation. Gallbladder contains a stone as before. No gallbladder wall thickening or inflammation. Biliary system is non dilated. Pancreas enhances normally. Spleen is normal in size and enhancement. No adrenal nodules. Both kidneys are normal in size and enhancement, without hydronephrosis. Both kidneys contain cortical hypodensities, too small to characterize but likely simple cysts. Peritoneum and bowel: No free fluid or air. Bowel loops are normal in caliber and wall thickness. The appendix is not seen. Nodes and vessels: No retroperitoneal or mesenteric adenopathy by size criteria. Inferior vena cava is normal in morphology. Miscellaneous: Rectus diastases. Small fat filled umbilical hernia. PELVIS: Genitourinary: Bladder wall thickness is normal. Miscellaneous: Fat filled right inguinal hernia, no adenopathy. Bones: No suspicious bony lesions. No vertebral body compression fractures. IMPRESSION: 1. No aortic aneurysm or dissection is identified. Heart size appears normal. No pulmonary edema or focal consolidation. 2. Cholelithiasis without evidence of cholecystitis. 3. Diastases of the superior linea alba. Small umbilical hernia. Fat filled right inguinal hernia. Findings are concordant with the preliminary report. Dictated by: Hector Azar M.D. on 11/10/2017 at 8:12 Approved by: Hector Azar M.D. on 11/10/2017 at 8:28 Discharge Plan Discharge Plan Patient Disposition: Home, Self-Care Provider Discharge Instructions Diet: Diet as Tolerated and Carb-consistent/Diabetic Diet comment: Heart healthy/cardiac diet Activity: As tolerated Oxygen: Room air Discharge Data Primary Care Provider: Jacky Rios Attending Provider: Jose Strange Admit Date/Time: 11/10/17 07:51 Quality VTE Deep Vein Thrombosis/Pulmonary Embolism Present on Admission: No
--- NOTE | 2017-11-11 13:52 | CM.DANOTE ---
DCP/Assessment: Reviewed chart. Patient is a 62yr old male admitted to [facility] under OBS status with SOB. PCP is Emmanuel Jay in [place]. Primary payor is 1)Medicaid. Met with patient and spouse/Rosette at bedside explained CM/PEDRO role. Patient alert, oriented, and ambulating with spouse in hallway. Patient reports that he does have h/o heroin and methadone use. Patient reports that he was going to [facility] for methadone up until 3 weeks ago when he got into an argument with his counselor at center. Patient indicates that his car broke down so he was unable to get to the clinic and he was upset because [facility] could not provide transport. Since that time patient admits to using heroin. Patient and spouse reports that patient plans to return to wellness center next week. SECURITY PATROL DRIVER offered community resources and patient and spouse declined. Encouraged patient to follow up with [facility] right away. P: Home today. Patient declines community resources. Encouraged patient to follow up with methadone clinic refrain from using illegal substances. RAMESH Gary
== END 2017-11-11 13:30 | disposition home or self-care (01) ==
LOC: ED 06:54 → AC 07:53
PROVIDERS: Admitting Provider Internal Medicine; Emergency Provider Emergency Medicine; Family Provider Family Medicine; PCP Family Medicine; Visit Provider Internal Medicine
DX: R06.02 Shortness of breath (principal); F17.210 Nicotine dependence, cigarettes, uncomplicated; F11.20 Opioid dependence, uncomplicated; I25.2 Old myocardial infarction; M54.9 Dorsalgia, unspecified
CPT/HCPCS: 36415; 70450; 71275; 74174; 80053; 80061; 80305; 82962; 83690; 84484; 85025; 85379; 93005; 93041; 93306; 99283; 99285; 99406; G0378; J1650; Q9967

== ENCOUNTER 2018-03-09 15:42 | Emergency (ER) | payer MEDICAID, SELFPAY ==
[2017-11-10 08:47] VITALS: BMI 22.8
[2018-03-09 16:03] VITALS: BP 118/80; PULSE 92; RESP 16; TEMP 37; O2SAT 98; BMI 27.1
--- NOTE | 2018-03-09 20:20 | ED_ITS ---
HPI - Skin/Abscess/Foreign Bdy General Chief complaint: Skin/Abscess/Foreign Body Stated complaint: SORE ON RT LEG Time Seen by Provider: 03/09/18 20:20 Related Data Home Medications Medication Instructions Recorded Confirmed Pain Medication 1 dose PO DIRECTED 11/10/17 11/10/17 metformin 1 tab PO BID 11/10/17 03/09/18 metoprolol tartrate 50 mg PO BID 11/10/17 03/09/18 naloxone 1 dose INTRANASAL DIRECTED 11/10/17 03/09/18 olanzapine 10 mg PO BID 11/10/17 03/09/18 tamsulosin 0.8 mg PO DAILY 11/10/17 03/09/18 Previous Rx's Medication Instructions Recorded alprazolam [Xanax] 1 mg PO BID PRN #14 tab 11/11/17 aspirin 325 mg PO DAILY #90 tab 11/11/17 nitroglycerin [Nitrostat] 0.4 mg SUBLINGUAL [id number] PRN #1 11/11/17 tab Allergies Allergy/AdvReac Type Severity Reaction Status Date / Time baclofen [BACLOFEN] Allergy Intermediate REACTS TO Verified 03/09/18 16:06 HIS METFORMIN ketorolac [From TORADOL] Allergy Intermediate HIVES Verified 03/09/18 16:06 [facility] Medical History Back pain (Acute) Heroin abuse (Acute) Heroin addiction (Acute) Social History household members: spouse Smoking Status: Current every day smoker alcohol intake: former Exam Initial Vital Signs Initial Vital Signs: Vital Signs Temperature 98.6 F 03/09/18 16:03 Pulse Rate 92 H 03/09/18 16:03 Respiratory Rate 16 03/09/18 16:03 Blood Pressure 118/80 03/09/18 16:03 Pulse Oximetry 98 03/09/18 16:03 Course Vital Signs - 8 hr 03/09/18 16:03 Temperature 98.6 F Pulse Rate 92 H Respiratory Rate 16 Blood Pressure 118/80 Pulse Oximetry 98 Discharge Plan Departure Interventions: ED Discharge Assessment Last Done: 03/09/18 20:17 Prescriptions: No Action metformin 1,000 mg tablet 1 tab PO BID RF: 0 metoprolol tartrate 50 mg tablet 50 mg PO BID RF: 0 naloxone 4 mg/actuation spray,non-aerosol 1 dose Intranasal DIRECTED RF: 0 tamsulosin 0.4 mg capsule,extended release 24hr 0.8 mg PO DAILY RF: 0 olanzapine 10 mg tablet 10 mg PO BID RF: 0 Pain Medication 1 dose PO DIRECTED RF: 0 aspirin 325 mg Tablet,Delayed Release (Dr/Ec) 325 mg PO DAILY Qty: 90 RF: 0 nitroglycerin [Nitrostat] 0.4 mg Tablet, Sublingual 0.4 mg Sublingual [id number] PRN (Reason: Chest Pain) Qty: 1 RF: 0 alprazolam [Xanax] 1 mg tablet 1 mg PO BID PRN (Reason: anxiety) Qty: 14 RF: 0
== END 2018-03-09 20:21 | disposition left against medical advice (07) ==
PROVIDERS: Emergency Provider Nurse Practitioner Family; Family Provider Family Medicine; PCP Family Medicine
DX: L02.415 Cutaneous abscess of right lower limb (principal)
CPT/HCPCS: 99281; 99282

== ENCOUNTER 2018-06-09 12:35 | Emergency (ER) | payer MEDICAID, SELFPAY ==
[2017-11-10 08:47] VITALS: BMI 22.8
[2018-06-09 12:40] VITALS: BP 169/95; PULSE 106; RESP 16; TEMP 36.4; O2SAT 94
--- NOTE | 2018-06-09 13:30 | PC.NURSE ---
pt reports he has worms on the surface of his body, specifically pulls bandaid from hand to show. states he has seen them, but failed to keep any for md to see. pt has many lesions, scratches, sores to face arms and hands.
--- NOTE | 2018-06-09 14:10 | ED.SKABFB ---
HPI - Skin/Abscess/Foreign Bdy General Chief complaint: Skin/Abscess/Foreign Body Stated complaint: red sores on arms/hands Time Seen by Provider: 06/09/18 13:53 Source: patient Mode of arrival: ambulatory Limitations: no limitations History of Present Illness HPI narrative: Patient is 62-year-old male presenting with worms coming out of his skin. He is a known methamphetamine abuser. He states that he is still using but he has cut back significantly. He feels like there are worms. He has multiple sores on his arms. No abscesses. No fevers or chills. complaint: lesion Related Data Home Medications Medication Instructions Recorded Confirmed Pain Medication 1 dose PO DIRECTED 11/10/17 11/10/17 metformin 1 tab PO BID 11/10/17 03/09/18 metoprolol tartrate 50 mg PO BID 11/10/17 06/09/18 naloxone 1 dose INTRANASAL DIRECTED 11/10/17 03/09/18 olanzapine 10 mg PO BID 11/10/17 06/09/18 tamsulosin 0.8 mg PO DAILY 11/10/17 06/09/18 Previous Rx's Medication Instructions Recorded alprazolam [Xanax] 1 mg PO BID PRN #14 tab 11/11/17 aspirin 325 mg PO DAILY #90 tab 11/11/17 nitroglycerin [Nitrostat] 0.4 mg SUBLINGUAL [id number] PRN #1 11/11/17 tab mupirocin 1 applictn TOP BID #15 gram 06/09/18 Allergies Allergy/AdvReac Type Severity Reaction Status Date / Time baclofen [BACLOFEN] Allergy Intermediate REACTS TO Verified 03/09/18 16:06 HIS METFORMIN ketorolac [From TORADOL] Allergy Intermediate HIVES Verified 03/09/18 16:06 Review of Systems Review of Systems GENERAL: Denies chills,fever HEENT: Denies throat pain RESPIRATORY: Denies dyspnea, cough, wheezing CARDIOVASCULAR: Denies chest pain, palpitations GASTROINTESTINAL: Denies nausea, vomiting MUSCULOSKELETAL: Denies extremity pain, injury SKIN: See HPI NEUROLOGIC: Denies weakness, dizziness, headache, numbness 8 point review of systems is negative except for those stated above and HPI PFSH Medical History Back pain (Acute) Heroin abuse (Acute) Heroin addiction (Acute) Social History household members: spouse Smoking Status: Current every day smoker alcohol intake: former Exam Initial Vital Signs Initial Vital Signs: Vital Signs Temperature 97.6 F 06/09/18 12:40 Pulse Rate 106 H 06/09/18 12:40 Respiratory Rate 16 06/09/18 12:40 Blood Pressure 169/95 H 06/09/18 12:40 Pulse Oximetry 94 06/09/18 12:40 GENERAL: Well-appearing, well-nourished and in no acute distress. CARDIOVASCULAR: peripheral pulses in tact, cap refill <2 sec RESPIRATORY: No respiratory distress, speaks in full sentences without difficulty EXTREMITIES: Normal range of motion, no clubbing or edema. Neurovascularly intact NEUROLOGICAL: Cranial nerves II through XII grossly intact. Normal gait and speech. SKIN: Multiple sores on both arms mostly scabbed over no abscesses or drainage. 1 on left arm is the largest measuring 1 cm. No surrounding erythema no streaking Course Vital Signs - 8 hr 06/09/18 12:40 Temperature 97.6 F Pulse Rate 106 H Respiratory Rate 16 Blood Pressure 169/95 H Pulse Oximetry 94 Discharge Plan Departure Patient Disposition: Home Clinical Impression: Rash Discharge Date/Time: 06/09/18 14:25 Interventions: ED Discharge Assessment Last Done: 06/09/18 14:24 Instructions: DI for Rash Activity Restrictions/Additional Instructions: *You have been diagnosed with rash *What to do: Stop using methamphetamine *Continue to take medications as directed Mupirocin 2 times a day on lesions *Follow up with your primary care provider in 2-3 days *Return to ER if you should have any new, worsening or concerning symptoms Prescriptions: New mupirocin 2 % ointment 1 applictn TOP BID Qty: 15 RF: 0 No Action metformin 1,000 mg tablet 1 tab PO BID RF: 0 metoprolol tartrate 50 mg tablet 50 mg PO BID RF: 0 naloxone 4 mg/actuation spray,non-aerosol 1 dose Intranasal DIRECTED RF: 0 tamsulosin 0.4 mg capsule,extended release 24hr 0.8 mg PO DAILY RF: 0 olanzapine 10 mg tablet 10 mg PO BID RF: 0 Pain Medication 1 dose PO DIRECTED RF: 0 aspirin 325 mg Tablet,Delayed Release (Dr/Ec) 325 mg PO DAILY Qty: 90 RF: 0 nitroglycerin [Nitrostat] 0.4 mg Tablet, Sublingual 0.4 mg Sublingual [id number] PRN (Reason: Chest Pain) Qty: 1 RF: 0 alprazolam [Xanax] 1 mg tablet 1 mg PO BID PRN (Reason: anxiety) Qty: 14 RF: 0
[2018-06-09 14:20] VITALS: BP 137/90; PULSE 123; O2SAT 97
== END 2018-06-09 14:25 | disposition home or self-care (01) ==
PROVIDERS: Emergency Provider Emergency Medicine; PCP Family Medicine
DX: R21 Rash and other nonspecific skin eruption (principal)
CPT/HCPCS: 99282

== ENCOUNTER 2018-06-29 01:31 | Emergency (ER) | payer MEDICAID, SELFPAY ==
[2017-11-10 08:47] VITALS: BMI 22.8
--- NOTE | 2018-06-29 01:45 | ED.SKABFB ---
HPI - Skin/Abscess/Foreign Bdy General Stated complaint: states has worms Time Seen by Provider: 06/29/18 01:39 Source: patient Mode of arrival: ambulatory Limitations: no limitations History of Present Illness HPI narrative: 62-year-old male smoker with history of mental health problems and methamphetamine use presents with a recurrence of worms in his skin . He states his skin itches and he can pull small black and red worms from various places on his arms and legs. He states he has been here multiple times and we give him a topical medicine that does not work. He denies fever or chills. He denies any pain. He denies current methamphetamine use. complaint: lesion Onset (ago): week(s) Tetanus up to date: yes Location: generalized Severity: mild Quality: aching Pain Consistency: constant Relieving factors: none Exacerbating factors: none Associated symptoms: itching Related Data Home Medications Medication Instructions Recorded Confirmed Pain Medication 1 dose PO DIRECTED 11/10/17 11/10/17 metformin 1 tab PO BID 11/10/17 03/09/18 metoprolol tartrate 50 mg PO BID 11/10/17 06/09/18 naloxone 1 dose INTRANASAL DIRECTED 11/10/17 03/09/18 olanzapine 10 mg PO BID 11/10/17 06/09/18 tamsulosin 0.8 mg PO DAILY 11/10/17 06/09/18 Previous Rx's Medication Instructions Recorded alprazolam [Xanax] 1 mg PO BID PRN #14 tab 11/11/17 aspirin 325 mg PO DAILY #90 tab 11/11/17 nitroglycerin [Nitrostat] 0.4 mg SUBLINGUAL [id number] PRN #1 11/11/17 tab mupirocin 1 applictn TOP BID #15 gram 06/09/18 doxycycline hyclate 100 mg PO BID #20 tab 06/29/18 Allergies Allergy/AdvReac Type Severity Reaction Status Date / Time baclofen [BACLOFEN] Allergy Intermediate REACTS TO Verified 03/09/18 16:06 HIS METFORMIN ketorolac [From TORADOL] Allergy Intermediate HIVES Verified 03/09/18 16:06 Review of Systems Constitutional Denies chills, Denies fever(s), Denies lethargy and Denies weakness Eyes Denies change in vision, Denies eye discharge, Denies irritation and Denies loss of vision ENT Ears, Nose, Mouth, and Throat: Denies change in voice, Denies neck pain and Denies sore throat Cardiovascular Denies chest pain, Denies irregular heart rhythm, Denies lightheadedness, Denies palpitations, Denies dyspnea, Denies dyspnea on exertion and Denies orthopnea Respiratory Denies cough, Denies dyspnea, Denies dyspnea on exertion and Denies wheezing Gastrointestinal Gastrointestinal: Denies abdominal pain, Denies change in bowel habits, Denies diarrhea, Denies nausea and Denies vomiting Genitourinary Denies hematuria, Denies flank pain, Denies urinary incontinence and Denies urinary urgency Musculoskeletal Denies neck pain Integumentary/Breasts Denies pruritus, Reports lesions, Denies erythema, Denies rash, Reports skin ulcer and Denies wounds Neurologic Denies confusion, Denies loss of vision and Denies weakness Psychiatric Denies anxiety, Denies confusion, Denies depression, Denies homicidal ideation and Denies suicidal ideation Endocrine Denies palpitations Hematologic/Lymphatic Denies easy bruising Allergic/Immunologic Denies wheezing [facility] Medical History Back pain (Acute) Heroin abuse (Acute) Heroin addiction (Acute) Social History household members: spouse Smoking Status: Current every day smoker alcohol intake: former Social History household members: spouse Smoking Status: Current every day smoker alcohol intake: former Exam Narrative Exam Narrative: GEN: AOx3 and in mild distress EYES: Pupils are equal, round, and reactive to light and accommodation. Extraoccular muscles are intact bilaterally. There is no subconjunctival hemorrhage or exudate. CHEST: Lungs are clear to auscultation bilaterally and free of wheezes, rales, or rhonchi. Heart rate is regular rhythm, there are no murmurs, clicks, rubs, or gallops. There is no chest wall tenderness. ABD: Abdomen is soft and nontender. There is no guarding or rebound. Bowel sounds are normal in all 4 quadrants. There is no mass or organomegaly. EXT: Full painless ROM of all extremities with no loss of sensation or strength. SKIN: Multiple excoriations with mild surrounding erythema and no obvious fluctuance on various locations of his upper and lower extremities. Course Orders Ordered: Discontinued Medications Doxycycline Hyclate (Vibramycin) 100 mg PO NOW ONE Stop: 06/29/18 01:43 Discharge Plan Departure Patient Disposition: Home Clinical Impression: Cellulitis and abscess of left lower extremity Instructions: DI for Cellulitis -- Adult Activity Restrictions/Additional Instructions: *You have been diagnosed with [ acute cellulitis with excoriations on extremities ] *What to do: *Take medications as directed: Her prescription has been electronically transmitted to [facility] at your request *Follow up with your primary care provider in 2-3 days, call for an appointment. Let them know you were seen in the Emergency Department and that we ask that you be seen in follow up *Return to ER if you should have any new, worsening or concerning symptoms Prescriptions: New doxycycline hyclate 100 mg tablet 100 mg PO BID Qty: 20 RF: 0 No Action metformin 1,000 mg tablet 1 tab PO BID RF: 0 metoprolol tartrate 50 mg tablet 50 mg PO BID RF: 0 naloxone 4 mg/actuation spray,non-aerosol 1 dose Intranasal DIRECTED RF: 0 tamsulosin 0.4 mg capsule,extended release 24hr 0.8 mg PO DAILY RF: 0 olanzapine 10 mg tablet 10 mg PO BID RF: 0 Pain Medication 1 dose PO DIRECTED RF: 0 aspirin 325 mg Tablet,Delayed Release (Dr/Ec) 325 mg PO DAILY Qty: 90 RF: 0 nitroglycerin [Nitrostat] 0.4 mg Tablet, Sublingual 0.4 mg Sublingual [id number] PRN (Reason: Chest Pain) Qty: 1 RF: 0 alprazolam [Xanax] 1 mg tablet 1 mg PO BID PRN (Reason: anxiety) Qty: 14 RF: 0 mupirocin 2 % ointment 1 applictn TOP BID Qty: 15 RF: 0
[2018-06-29 01:47] VITALS: BP 127/101; PULSE 91; RESP 16; TEMP 36.4; O2SAT 97; BMI 28.5
[2018-06-29] MEDS: DOXYCYCLINE HYCLATE 100 MG TABLET PO (01:53)
== END 2018-06-29 02:00 | disposition home or self-care (01) ==
PROVIDERS: Emergency Provider Emergency Medicine; PCP Family Medicine
DX: L03.116 Cellulitis of left lower limb (principal); L02.416 Cutaneous abscess of left lower limb
CPT/HCPCS: 99282; 99283

== ENCOUNTER 2018-07-28 19:13 | Emergency (ER) | payer MEDICAID, SELFPAY ==
[2017-11-10 08:47] VITALS: BMI 22.8
[2018-07-28 19:29] VITALS: BP 142/99; PULSE 113; RESP 20; TEMP 36.4; O2SAT 96; BMI 26.6
--- NOTE | 2018-07-28 19:35 | ED_ITS ---
HPI - Skin/Abscess/Foreign Bdy General Chief complaint: Skin/Abscess/Foreign Body Stated complaint: states worms coming out of skin Time Seen by Provider: 07/28/18 19:20 Source: patient Mode of arrival: ambulatory Limitations: no limitations History of Present Illness HPI narrative: The patient is here with a rash. He has lesions on his face, and extremities. He is picking at the lesions. He complains of worms coming out lesions. He has been here previously with complaints of the same concerns with his nose. He is a known heroin user. He has no fever. He is oriented to place and time. Related Data Home Medications Medication Instructions Recorded Confirmed Pain Medication 1 dose PO DIRECTED 11/10/17 11/10/17 metformin 1 tab PO BID 11/10/17 03/09/18 metoprolol tartrate 50 mg PO BID 11/10/17 06/09/18 naloxone 1 dose INTRANASAL DIRECTED 11/10/17 03/09/18 olanzapine 10 mg PO BID 11/10/17 06/09/18 tamsulosin 0.8 mg PO DAILY 11/10/17 06/09/18 Previous Rx's Medication Instructions Recorded alprazolam [Xanax] 1 mg PO BID PRN #14 tab 11/11/17 aspirin 325 mg PO DAILY #90 tab 11/11/17 nitroglycerin [Nitrostat] 0.4 mg SUBLINGUAL [id number] PRN #1 11/11/17 tab mupirocin 1 applictn TOP BID #15 gram 06/09/18 doxycycline hyclate 100 mg PO BID #20 tab 06/29/18 hydroxyzine HCl 25 mg PO Q8H PRN #30 tab 07/28/18 sulfamethoxazole-trimethoprim 1 tab PO BID 7 Days #14 tab 07/28/18 Allergies Allergy/AdvReac Type Severity Reaction Status Date / Time baclofen [BACLOFEN] Allergy Intermediate REACTS TO Verified 03/09/18 16:06 HIS METFORMIN ketorolac [From TORADOL] Allergy Intermediate HIVES Verified 03/09/18 16:06 Review of Systems Constitutional Denies chills and Denies fever(s) ENT Ears, Nose, Mouth, and Throat: Reports nose pain Integumentary/Breasts Reports as per HPI [facility] Medical History Back pain (Acute) Heroin abuse (Acute) Heroin addiction (Acute) Social History household members: spouse Smoking Status: Current every day smoker alcohol intake: former Social History household members: spouse Smoking Status: Current every day smoker alcohol intake: former Exam Initial Vital Signs Initial Vital Signs: Vital Signs Temperature 97.5 F L 07/28/18 19:29 Pulse Rate 113 H 07/28/18 19:29 Respiratory Rate 20 07/28/18 19:29 Blood Pressure 142/99 H 07/28/18 19:29 Pulse Oximetry 96 07/28/18 19:29 Const General: cooperative Nutritional Appearance: well nourished Orientation: alert, awake and oriented x3 Skin Other: Multiple picked sites on his face, upper extremities, and lower extremities. Cellulitis the tip of his nose. Neuro General: alert, oriented x3, gait normal and no focal motor deficits Speech: speech normal Psych Speech and Movement: speech and movement normal Mood: congruent mood Thought Process: illogical Thought Content: delusions Judgment: limited Course Vital Signs - 8 hr 07/28/18 19:29 07/28/18 19:45 Temperature 97.5 F L 97.5 F L Pulse Rate 113 H 113 H Respiratory Rate 20 20 Blood Pressure 142/99 H 142/99 H Pulse Oximetry 96 96 Discharge Plan Departure Patient Disposition: Home Clinical Impression: Cellulitis of nose, Formication Discharge Date/Time: 07/28/18 19:51 Interventions: ED Discharge Assessment Last Done: 07/28/18 19:51 Instructions: Cellulitis Activity Restrictions/Additional Instructions: Septra DS 2 times daily as prescribed. Hydroxyzine every 6 hr as needed for itching. Bathe in warm water with Epsom salts daily to alleviate the skin lesions. Follow-up with her doctor in 1 week for recheck. Return the ER for worse. Prescriptions: New sulfamethoxazole-trimethoprim 800-160 mg tablet 1 tab PO BID 7 Days Qty: 14 RF: 0 hydroxyzine HCl 25 mg tablet 25 mg PO Q8H PRN (Reason: itching) Qty: 30 RF: 0 No Action metformin 1,000 mg tablet 1 tab PO BID RF: 0 metoprolol tartrate 50 mg tablet 50 mg PO BID RF: 0 naloxone 4 mg/actuation spray,non-aerosol 1 dose Intranasal DIRECTED RF: 0 tamsulosin 0.4 mg capsule,extended release 24hr 0.8 mg PO DAILY RF: 0 olanzapine 10 mg tablet 10 mg PO BID RF: 0 Pain Medication 1 dose PO DIRECTED RF: 0 aspirin 325 mg Tablet,Delayed Release (Dr/Ec) 325 mg PO DAILY Qty: 90 RF: 0 nitroglycerin [Nitrostat] 0.4 mg Tablet, Sublingual 0.4 mg Sublingual [id number] PRN (Reason: Chest Pain) Qty: 1 RF: 0 alprazolam [Xanax] 1 mg tablet 1 mg PO BID PRN (Reason: anxiety) Qty: 14 RF: 0 mupirocin 2 % ointment 1 applictn TOP BID Qty: 15 RF: 0 doxycycline hyclate 100 mg tablet 100 mg PO BID Qty: 20 RF: 0 Referrals: Jacky Rios MD [Primary Care Provider] -
[2018-07-28 19:45] VITALS: BP 142/99; PULSE 113; RESP 20; TEMP 36.4; O2SAT 96; BMI 26.6
== END 2018-07-28 19:51 | disposition home or self-care (01) ==
PROVIDERS: Emergency Provider Emergency Medicine; PCP Family Medicine
DX: J34.0 Abscess, furuncle and carbuncle of nose (principal); R20.2 Paresthesia of skin
CPT/HCPCS: 99282

== ENCOUNTER 2018-08-21 16:07 | Emergency (ER) | payer MEDICAID, SELFPAY ==
[2017-11-10 08:47] VITALS: BMI 22.8
[2018-08-21 16:30] VITALS: BP 128/64; PULSE 87; RESP 17; O2SAT 98; BMI 27.6
--- NOTE | 2018-08-21 17:42 | ED_ITS ---
HPI - Skin/Abscess/Foreign Bdy <DIANE Moya - Last Filed: 08/21/18 22:12> General Chief complaint: Skin/Abscess/Foreign Body Stated complaint: Says skin rash with bugs coming out Time Seen by Provider: 08/21/18 17:18 Source: patient Mode of arrival: ambulatory Limitations: no limitations History of Present Illness HPI narrative: Patient is a 63-year-old male current smoker with history of cellulitis who presents with worms coming out of his skin. He has a history of methamphetamine use but denies it at this point time. He denies any fevers, chills, nausea vomiting or diarrhea. He states that he has used creams for this emergency department before which, which do not work. He states he has put some cream on his warm him bites but he is not sure what cream he has used. Related Data Home Medications Medication Instructions Recorded Confirmed Pain Medication 1 dose PO DIRECTED 11/10/17 11/10/17 metformin 1 tab PO BID 11/10/17 03/09/18 metoprolol tartrate 50 mg PO BID 11/10/17 08/21/18 naloxone 1 dose INTRANASAL DIRECTED 11/10/17 03/09/18 olanzapine 10 mg PO BID 11/10/17 08/21/18 tamsulosin 0.8 mg PO DAILY 11/10/17 08/21/18 Previous Rx's Medication Instructions Recorded alprazolam [Xanax] 1 mg PO BID PRN #14 tab 11/11/17 aspirin 325 mg PO DAILY #90 tab 11/11/17 nitroglycerin [Nitrostat] 0.4 mg SUBLINGUAL [id number] PRN #1 11/11/17 tab mupirocin 1 applictn TOP BID #15 gram 06/09/18 hydroxyzine HCl 25 mg PO Q8H PRN #30 tab 07/28/18 clindamycin HCl 300 mg PO QID #40 cap 08/21/18 Allergies Allergy/AdvReac Type Severity Reaction Status Date / Time baclofen [BACLOFEN] Allergy Intermediate REACTS TO Verified 03/09/18 16:06 HIS METFORMIN ketorolac [From TORADOL] Allergy Intermediate HIVES Verified 03/09/18 16:06 Review of Systems <DIANE Moya - Last Filed: 08/21/18 22:12> Review of Systems GENERAL: Denies chills, fatigue, malaise, fever, sweats. HEENT: Denies sinus pain, ear pain, sore throat, difficulty swallowing, dizziness. RESPIRATORY: Denies dyspnea, cough, wheezing, hemoptysis, sputum. CARDIOVASCULAR: Denies chest pain, palpitations, orthopnea, edema, GASTROINTESTINAL: Denies nausea, vomiting, abdominal pain, diarrhea, constipation, melena. : Denies dysuria, frequency, incontinence, hematuria, urinary retention. MUSCULOSKELETAL: denies weakness, joint pain, or bony pain SKIN: See HPI NEUROLOGIC: Denies weakness, headache, numbness, change in speech, confusion, seizures, incoordination. PSYCHIATRIC: No concerning psychosocial issues. 12 point review of systems is negative except for those stated above PFSH <DIANE Moya - Last Filed: 08/21/18 22:12> Medical History Back pain (Acute) Heroin abuse (Acute) Heroin addiction (Acute) Social History household members: spouse Smoking Status: Current every day smoker alcohol intake: former Exam <DIANE Moya - Last Filed: 08/21/18 22:12> Narrative Exam Narrative: GENERAL: This is a well-nourished, well-developed patient, no acute distress HEAD: Atraumatic. Normocephalic. No temporal or scalp tenderness. EYES: Pupils equal round and reactive. Extraocular motions intact. No scleral icterus. No injection or drainage. ENT: Nose without bleeding, purulent drainage or septal hematoma. Throat without erythema, tonsillar hypertrophy or exudate. Uvula midline. Airway patent. NECK: Trachea midline. No JVD or lymphadenopathy. Supple, nontender, no meningeal signs. CARDIOVASCULAR: Regular rate and rhythm RESPIRATORY: Clear to auscultation. Breath sounds equal bilaterally. No wheezes, rales, or rhonchi. Cough. No increased respiratory effort. GASTROINTESTINAL: Abdomen soft, non-tender, nondistended. No hepato- splenomegaly, or palpable masses. No guarding. active bowel sounds all 4 quadrants. No pulsatile mass palpable. EXTREMITIES: No clubbing, cyanosis, or edema. No joint tenderness, effusion, or edema noted. BACK: Nontender without deformity or crepitance. No flank tenderness. NEURO: AOx3. SKIN: Multiple wounds noted over bilateral hands. 3 cm the rounding erythema on dorsal aspect of left hand. No palpable fluctuance or abscess. A 2 mm wound noted on nose, with no surrounding erythema. Initial Vital Signs Initial Vital Signs: Vital Signs Pulse Rate 87 08/21/18 16:30 Respiratory Rate 17 08/21/18 16:30 Blood Pressure 128/64 08/21/18 16:30 Pulse Oximetry 98 08/21/18 16:30 <Estela Ba DO - Last Filed: 08/24/18 18:46> Initial Vital Signs Initial Vital Signs: Vital Signs Pulse Rate 87 08/21/18 16:30 Respiratory Rate 17 08/21/18 16:30 Blood Pressure 128/64 08/21/18 16:30 Pulse Oximetry 98 08/21/18 16:30 Course <DIANE Moya - Last Filed: 08/21/18 22:12> Vital Signs - 8 hr 08/21/18 16:30 08/21/18 17:45 Pulse Rate 87 78 Respiratory Rate 17 18 Blood Pressure [Right Arm] 128/64 Pulse Oximetry 98 99 <Estela Ba DO - Last Filed: 08/24/18 18:46> Vital Signs - 8 hr 08/21/18 16:30 08/21/18 17:45 Pulse Rate 87 78 Respiratory Rate 17 18 Blood Pressure [Right Arm] 128/64 Pulse Oximetry 98 99 MDM - Skin/Abscess/Foreign Bdy <DIANE Moya - Last Filed: 08/21/18 22:12> MDM Narrative Medical decision making narrative: The patient is a 63-year-old male with history of methamphetamine and heroin abuse. He presents with a chief complaint of warmth coming out of his skin. This was not observed during his exam. However he does have cellulitis in his left hand. Given that he is most recently on doxycycline, I placed him on clindamycin as he had high risk of MRSA due to his drug abuse. He does not have any signs of systemic illness including fever vomiting or diarrhea. I encouraged him to follow up with primary care provider in the next few days. He did request pain medications in the emergency department, and I offered him Tylenol, which she declined. I discussed at length return precautions of fever, vomiting and diarrhea. No questions or concerns upon discharge. Discharge Plan Departure Patient Disposition: Home Clinical Impression: Cellulitis Qualifiers: Site of cellulitis: extremity Site of cellulitis of extremity: upper extremity Laterality: left Qualified Code(s): L03.114 - Cellulitis of left upper limb Discharge Date/Time: 08/21/18 17:45 Interventions: ED Discharge Assessment Last Done: 08/21/18 17:45 Instructions: DI for Cellulitis -- Adult Activity Restrictions/Additional Instructions: One of her wounds has spreading redness and warmth. I am going to treat you for cellulitis with an antibiotic. Please take this antibiotic as prescribed. Please follow up with primary care provider in the next few days. Please monitor for fever, vomiting or diarrhea. Please use a probiotic or yogurt with this medication. Please be evaluated if you have any acute concerns. Prescriptions: New clindamycin HCl 300 mg capsule 300 mg PO QID Qty: 40 RF: 0 No Action metformin 1,000 mg tablet 1 tab PO BID RF: 0 metoprolol tartrate 50 mg tablet 50 mg PO BID RF: 0 naloxone 4 mg/actuation spray,non-aerosol 1 dose Intranasal DIRECTED RF: 0 tamsulosin 0.4 mg capsule,extended release 24hr 0.8 mg PO DAILY RF: 0 olanzapine 10 mg tablet 10 mg PO BID RF: 0 Pain Medication 1 dose PO DIRECTED RF: 0 aspirin 325 mg Tablet,Delayed Release (Dr/Ec) 325 mg PO DAILY Qty: 90 RF: 0 nitroglycerin [Nitrostat] 0.4 mg Tablet, Sublingual 0.4 mg Sublingual [id number] PRN (Reason: Chest Pain) Qty: 1 RF: 0 alprazolam [Xanax] 1 mg tablet 1 mg PO BID PRN (Reason: anxiety) Qty: 14 RF: 0 mupirocin 2 % ointment 1 applictn TOP BID Qty: 15 RF: 0 hydroxyzine HCl 25 mg tablet 25 mg PO Q8H PRN (Reason: itching) Qty: 30 RF: 0 Referrals: Jacky Rios MD [Primary Care Provider] - <Estela Ba DO - Last Filed: 08/24/18 18:46> Cosign ED Attending Cosignature Attestation: I was immediately available in the department for consultation. This documentation has been reviewed and I agree with assessment and plan. Supervised by Estela Ba,
[2018-08-21 17:45] VITALS: PULSE 78; RESP 18; O2SAT 99
== END 2018-08-21 17:45 | disposition home or self-care (01) ==
PROVIDERS: Emergency Provider Nurse Practitioner Family; PCP Family Medicine
DX: L03.114 Cellulitis of left upper limb (principal)
CPT/HCPCS: 99282; 99283

== ENCOUNTER 2018-09-11 15:38 | Emergency (ER) | payer MEDICAID, SELFPAY ==
[2017-11-10 08:47] VITALS: BMI 22.8
[2018-09-11 15:41] VITALS: BP 135/94; PULSE 110; RESP 18; TEMP 36.4; O2SAT 96
--- NOTE | 2018-09-11 18:22 | PC.NURSE ---
Late Note at 1715-Pt has multiple lesions in bilateral hands and a large open lesion in medial R ankle with drainage. Pt states has seen small white worms crawling out of these lesions. He had tried hard not to scratch these but very difficulty. pt denies fever, chills, nausea or vomiting. Pt denies using recreational drugs for last 1.5 months which used to be meths and heroin by smoking and injecting. Pt's family member at bedside and she states she has seen these worms as well. However, no other family member has similar sx.
[2018-09-11 18:39] VITALS: BP 139/93; PULSE 94; O2SAT 98
--- NOTE | 2018-09-11 23:06 | ED.SKABFB ---
HPI - Skin/Abscess/Foreign Bdy <DIANE Moya - Last Filed: 09/11/18 23:10> General Chief complaint: Skin/Abscess/Foreign Body Stated complaint: RASH FEELS LIKE CREATURES IN SKIN Time Seen by Provider: 09/11/18 17:39 Source: patient Mode of arrival: ambulatory Limitations: no limitations History of Present Illness HPI narrative: The patient is a 63-year-old male well known to this department who presents with chief complaint of worms crawling out of his skin. He does have a history of methamphetamine use. He denies any fevers nausea vomiting diarrhea. He has not followed up with his primary care provider since his most recent visit. He complains of a new wound on his right lower leg. Related Data Home Medications Medication Instructions Recorded Confirmed Pain Medication 1 dose PO DIRECTED 11/10/17 11/10/17 metformin 1 tab PO BID 11/10/17 03/09/18 metoprolol tartrate 50 mg PO BID 11/10/17 08/21/18 naloxone 1 dose INTRANASAL DIRECTED 11/10/17 03/09/18 olanzapine 10 mg PO BID 11/10/17 08/21/18 tamsulosin 0.8 mg PO DAILY 11/10/17 08/21/18 Previous Rx's Medication Instructions Recorded alprazolam [Xanax] 1 mg PO BID PRN #14 tab 11/11/17 aspirin 325 mg PO DAILY #90 tab 11/11/17 nitroglycerin [Nitrostat] 0.4 mg SUBLINGUAL [id number] PRN #1 11/11/17 tab mupirocin 1 applictn TOP BID #15 gram 06/09/18 hydroxyzine HCl 25 mg PO Q8H PRN #30 tab 07/28/18 clindamycin HCl 300 mg PO QID #40 cap 08/21/18 sulfamethoxazole-trimethoprim 1 tab PO BID #20 tab 09/11/18 [Bactrim DS] Allergies Allergy/AdvReac Type Severity Reaction Status Date / Time baclofen [BACLOFEN] Allergy Intermediate REACTS TO Verified 03/09/18 16:06 HIS METFORMIN ketorolac [From TORADOL] Allergy Intermediate HIVES Verified 03/09/18 16:06 Review of Systems <DIANE Moya - Last Filed: 09/11/18 23:10> Review of Systems GENERAL: Denies chills, fatigue, malaise, fever, sweats. HEENT: Denies sinus pain, ear pain, sore throat, difficulty swallowing, dizziness. RESPIRATORY: Denies dyspnea, cough, wheezing, hemoptysis, sputum. CARDIOVASCULAR: Denies chest pain, palpitations, orthopnea, edema, GASTROINTESTINAL: Denies nausea, vomiting, abdominal pain, diarrhea, constipation, melena. : Denies dysuria, frequency, incontinence, hematuria, urinary retention. MUSCULOSKELETAL: denies weakness, joint pain, or bony pain SKIN: see HPI NEUROLOGIC: Denies weakness, headache, numbness, change in speech, confusion, seizures, incoordination. PSYCHIATRIC: No concerning psychosocial issues. 12 point review of systems is negative except for those stated above PFSH <DIANE Moya - Last Filed: 09/11/18 23:10> Medical History Back pain (Acute) Heroin abuse (Acute) Heroin addiction (Acute) Social History household members: spouse Smoking Status: Current every day smoker alcohol intake: former Social History household members: spouse Smoking Status: Current every day smoker alcohol intake: former Exam <DIANE Moya - Last Filed: 09/11/18 23:10> Narrative Exam Narrative: GENERAL: This is a well-nourished, well-developed patient, no acute distress HEAD: Atraumatic. Normocephalic. No temporal or scalp tenderness. EYES: Pupils equal round and reactive. Extraocular motions intact. No scleral icterus. No injection or drainage. ENT: Nose without bleeding, purulent drainage or septal hematoma. Throat without erythema, tonsillar hypertrophy or exudate. Uvula midline. Airway patent. NECK: Trachea midline. No JVD or lymphadenopathy. Supple, nontender, no meningeal signs. CARDIOVASCULAR: Regular rate and rhythm RESPIRATORY: No cough. No increased respiratory effort. EXTREMITIES: No clubbing, cyanosis, or edema. No joint tenderness, effusion, or edema noted. BACK: Nontender without deformity or crepitance. No flank tenderness. NEURO: AOx3. SKIN: Multiple open sores noted on face and bilateral forearms and hands. No extending erythema noted. 2 cm wound noted on anterior aspect of right lower leg. Some purulence drainage noted. Initial Vital Signs Initial Vital Signs: Vital Signs Temperature 97.5 F L 09/11/18 15:41 Pulse Rate 110 H 09/11/18 15:41 Respiratory Rate 18 09/11/18 15:41 Blood Pressure 135/94 H 09/11/18 15:41 Pulse Oximetry 96 09/11/18 15:41 <Estela Ba DO - Last Filed: 09/12/18 19:40> Initial Vital Signs Initial Vital Signs: Vital Signs Temperature 97.5 F L 09/11/18 15:41 Pulse Rate 110 H 09/11/18 15:41 Respiratory Rate 18 09/11/18 15:41 Blood Pressure 135/94 H 09/11/18 15:41 Pulse Oximetry 96 09/11/18 15:41 Course <DIANE Moya - Last Filed: 09/11/18 23:10> Orders Ordered: ED Orders 09/11/18 18:05 Wound Culture and Gram Stain Stat Wound Culture and Gram Stain Stat Vital Signs - 8 hr 09/11/18 15:41 09/11/18 18:39 Temperature 97.5 F L Pulse Rate 110 H 94 H Respiratory Rate 18 Blood Pressure 135/94 H 139/93 H Pulse Oximetry 96 98 <Estela Ba DO - Last Filed: 09/12/18 19:40> Orders Ordered: ED Orders 09/11/18 18:05 Wound Culture and Gram Stain Stat Wound Culture and Gram Stain Stat Vital Signs - 8 hr 09/11/18 15:41 09/11/18 18:39 Temperature 97.5 F L Pulse Rate 110 H 94 H Respiratory Rate 18 Blood Pressure 135/94 H 139/93 H Pulse Oximetry 96 98 MDM - Skin/Abscess/Foreign Bdy <DIANE Moya - Last Filed: 09/11/18 23:10> MDM Narrative Medical decision making narrative: The patient is a 63-year-old male who presents with a chief complaint of warms crawling out of his skin. He does not have worms crawling out of his skin exam. He is not systemically ill and is afebrile. Given his new wound appears infected, I am starting him on Bactrim as he history of MRSA. Wound cultures were obtained. I discussed return precautions and monitoring for fever, vomiting or diarrhea. Encouraged the patient to follow up with primary care provider. Patient no questions or concerns upon discharge. Discharge Plan Departure Patient Disposition: Home Clinical Impression: Wounds, multiple Leg wound, right Qualifiers: Encounter type: initial encounter Qualified Code(s): S81.801A - Unspecified open wound, right lower leg, initial encounter Discharge Date/Time: 09/11/18 18:39 Interventions: ED Discharge Assessment Last Done: 09/11/18 18:39 Instructions: DI for Wound Infection Activity Restrictions/Additional Instructions: I am starting on antibiotics given my concern about her wound infection. We are sending off a wound culture. Please follow up with your primary care provider soon as possible. Please come back to the emergency department for any acute concerns such as chest pain or shortness of breath. Prescriptions: New sulfamethoxazole-trimethoprim [Bactrim DS] 800-160 mg tablet 1 tab PO BID Qty: 20 RF: 0 No Action metformin 1,000 mg tablet 1 tab PO BID RF: 0 metoprolol tartrate 50 mg tablet 50 mg PO BID RF: 0 naloxone 4 mg/actuation spray,non-aerosol 1 dose Intranasal DIRECTED RF: 0 tamsulosin 0.4 mg capsule,extended release 24hr 0.8 mg PO DAILY RF: 0 olanzapine 10 mg tablet 10 mg PO BID RF: 0 Pain Medication 1 dose PO DIRECTED RF: 0 aspirin 325 mg Tablet,Delayed Release (Dr/Ec) 325 mg PO DAILY Qty: 90 RF: 0 nitroglycerin [Nitrostat] 0.4 mg Tablet, Sublingual 0.4 mg Sublingual [id number] PRN (Reason: Chest Pain) Qty: 1 RF: 0 alprazolam [Xanax] 1 mg tablet 1 mg PO BID PRN (Reason: anxiety) Qty: 14 RF: 0 mupirocin 2 % ointment 1 applictn TOP BID Qty: 15 RF: 0 hydroxyzine HCl 25 mg tablet 25 mg PO Q8H PRN (Reason: itching) Qty: 30 RF: 0 clindamycin HCl 300 mg capsule 300 mg PO QID Qty: 40 RF: 0 Referrals: Jacky Rios MD [Primary Care Provider] - <Estela Ba DO - Last Filed: 09/12/18 19:40> Cosign ED Attending Cosignature Attestation: I was immediately available in the department for consultation. This documentation has been reviewed and I agree with assessment and plan. Supervised by Estela Ba DO
== END 2018-09-11 18:39 | disposition home or self-care (01) ==
PROVIDERS: Emergency Provider Nurse Practitioner Family; PCP Family Medicine
DX: S81.801A Unspecified open wound, right lower leg, initial encounter (principal)
CPT/HCPCS: 87070; 87075; 87077; 87147; 87186; 87205; 99282

== ENCOUNTER 2019-01-14 12:45 | Emergency (ER) | payer MEDICAID, SELFPAY ==
[2017-11-10 08:47] VITALS: BMI 22.8
[2019-01-14 12:52] VITALS: BP 144/97; PULSE 108; RESP 20; TEMP 36.4; O2SAT 99; BMI 27.0
--- NOTE | 2019-01-14 13:22 | ED.SKABFB ---
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 He states that there are worms in his skin, they have had chest and that they are warm baby is coming out of his skin. He states his hands are itching and he is trying to remove the warms and eggs, but having difficulty doing so. The patient does endorse current methamphetamine use. He denies any nausea vomiting diarrhea or fever. He states that he has been in multiple times to is the emergency department for worms in his skin, which is corroborated by his visit history. Related Data Home Medications Medication Instructions Recorded Confirmed Pain Medication 1 dose PO DIRECTED 11/10/17 11/10/17 metformin 1 tab PO BID 11/10/17 03/09/18 metoprolol tartrate 50 mg PO BID 11/10/17 08/21/18 naloxone 1 dose INTRANASAL DIRECTED 11/10/17 03/09/18 olanzapine 10 mg PO BID 11/10/17 08/21/18 tamsulosin 0.8 mg PO DAILY 11/10/17 08/21/18 Previous Rx's Medication Instructions Recorded alprazolam [Xanax] 1 mg PO BID PRN #14 tab 11/11/17 aspirin 325 mg PO DAILY #90 tab 11/11/17 nitroglycerin [Nitrostat] 0.4 mg SUBLINGUAL [id number] PRN #1 11/11/17 tab mupirocin 1 applictn TOP BID #15 gram 06/09/18 hydroxyzine HCl 25 mg PO Q8H PRN #30 tab 07/28/18 clindamycin HCl 300 mg PO QID #40 cap 08/21/18 sulfamethoxazole-trimethoprim 1 tab PO BID #20 tab 09/11/18 [Bactrim DS] mupirocin calcium 1 applictn TOP TID #15 gram 01/14/19 Allergies Allergy/AdvReac Type Severity Reaction Status Date / Time baclofen [BACLOFEN] Allergy Intermediate REACTS TO Verified 03/09/18 16:06 HIS METFORMIN ketorolac [From TORADOL] Allergy Intermediate HIVES Verified 03/09/18 16:06 Review of Systems <DIANE Moya - Last Filed: 01/14/19 16:16> Review of Systems GENERAL: Denies chills, fatigue, malaise, fever, sweats. HEENT: Denies sinus pain, ear pain, sore throat, difficulty swallowing, dizziness. RESPIRATORY: Denies dyspnea, cough, wheezing, hemoptysis, sputum. CARDIOVASCULAR: Denies chest pain, palpitations, orthopnea, edema, GASTROINTESTINAL: Denies nausea, vomiting, abdominal pain, diarrhea, constipation, melena. : Denies dysuria, frequency, incontinence, hematuria, urinary retention. MUSCULOSKELETAL: denies weakness, joint pain, or bony pain SKIN: See HPI NEUROLOGIC: Denies weakness, headache, numbness, change in speech, confusion, seizures, incoordination. PSYCHIATRIC: See HPI 12 point review of systems is negative except for those stated above PFSH <DIANE Moya - Last Filed: 01/14/19 16:16> Medical History Back pain (Acute) Heroin abuse (Acute) Heroin addiction (Acute) Social History household members: spouse Smoking Status: Current every day smoker alcohol intake: former Social History household members: spouse Smoking Status: Current every day smoker alcohol intake: former Exam <DIANE Moya - Last Filed: 01/14/19 16:16> Narrative Exam Narrative: GENERAL: Chronically ill-appearing elderly male actively picking at skin during exam HEAD: Atraumatic. Normocephalic. No temporal or scalp tenderness. EYES: Pupils equal round and reactive. Extraocular motions intact. No scleral icterus. No injection or drainage. ENT: Nose without bleeding, purulent drainage or septal hematoma. Throat without erythema, tonsillar hypertrophy or exudate. Uvula midline. Airway patent. NECK: Trachea midline. No JVD or lymphadenopathy. Supple, nontender, no meningeal signs. CARDIOVASCULAR: Regular rate and rhythm RESPIRATORY: Clear to auscultation. Breath sounds equal bilaterally. No wheezes, rales, or rhonchi. No cough. No increased respiratory effort. No accessory muscle use. GASTROINTESTINAL: Abdomen soft, non-tender, nondistended. No hepato-splenomegaly, or palpable masses. No guarding. EXTREMITIES: No clubbing, cyanosis, or edema. No joint tenderness, effusion, or edema noted. BACK: Nontender without deformity or crepitance. No flank tenderness. NEURO: AOx3. SKIN: Multiple wounds noted over bilateral hands. Largest wound is 1 cm x 0.5 cm on lateral aspect of left hand. Also noted to have some superficial wounds across dorsum of bilateral hands, largest being 0.5 cm. Through dermis. No extending erythema noted from any wounds. No drainage noted from any wounds. Initial Vital Signs Initial Vital Signs: Vital Signs Temperature 97.6 F 01/14/19 12:52 Pulse Rate 108 H 01/14/19 12:52 Respiratory Rate 20 01/14/19 12:52 Blood Pressure 144/97 H 01/14/19 12:52 Pulse Oximetry 99 01/14/19 12:52 <Estela Ba DO - Last Filed: 01/15/19 07:23> Initial Vital Signs Initial Vital Signs: Vital Signs Temperature 97.6 F 01/14/19 12:52 Pulse Rate 108 H 01/14/19 12:52 Respiratory Rate 20 01/14/19 12:52 Blood Pressure 144/97 H 01/14/19 12:52 Pulse Oximetry 99 01/14/19 12:52 Course <DIANE Moya - Last Filed: 01/14/19 16:16> Orders Ordered: ED Orders 01/14/19 13:25 Wound Culture and Gram Stain Stat Vital Signs - 8 hr 01/14/19 12:52 01/14/19 13:38 Temperature 97.6 F Pulse Rate 108 H 98 H Respiratory Rate 20 Blood Pressure 144/97 H 141/103 H Pulse Oximetry 99 97 <Estela Ba DO - Last Filed: 01/15/19 07:23> Orders Ordered: ED Orders 01/14/19 13:25 Wound Culture and Gram Stain Stat Vital Signs - 8 hr 01/14/19 12:52 01/14/19 13:38 Temperature 97.6 F Pulse Rate 108 H 98 H Respiratory Rate 20 Blood Pressure 144/97 H 141/103 H Pulse Oximetry 99 97 MDM - Skin/Abscess/Foreign Bdy <Estela Magallon, 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 He states he comes in due to warm skin his skin as well as eggs planted in his skin. He does have some superficial wounds, is noted to be picking at his skin during my exam. I attempted to redirect him from this multiple times. He has no signs of infection at this point, no extending redness, no drainage, no purulence. However I did obtain a wound culture from the larger sore and placed him on Bactroban. I strongly encouraged him to stop using methamphetamine and stop picking at his skin. I discussed follow-up with PCP, discussed return precautions of fever, and we keep down fluids or acute concerns. Patient states understanding and has no questions or concerns upon discharge. Discharge Plan Departure Patient Disposition: Home Clinical Impression: Compulsive skin picking, Methamphetamine addiction Discharge Date/Time: 01/14/19 13:39 Interventions: ED Discharge Assessment Last Done: 01/14/19 13:38 Instructions: DI for Wound Infection, Methamphetamine Activity Restrictions/Additional Instructions: I have given your prescription for an antibiotic cream. Monitor for spreading of the redness, fevers. These are indications he might need oral antibiotics. We have a wound culture pending. Please follow up with primary care provider. Please try to stop using meth. This can significantly impact her your skin picking. Please come back to the emergency department for any acute concerns. Prescriptions: New mupirocin calcium 2 % cream 1 applictn TOP TID Qty: 15 RF: 0 No Action metformin 1,000 mg tablet 1 tab PO BID RF: 0 metoprolol tartrate 50 mg tablet 50 mg PO BID RF: 0 naloxone 4 mg/actuation spray,non-aerosol 1 dose Intranasal DIRECTED RF: 0 tamsulosin 0.4 mg capsule,extended release 24hr 0.8 mg PO DAILY RF: 0 olanzapine 10 mg tablet 10 mg PO BID RF: 0 Pain Medication 1 dose PO DIRECTED RF: 0 aspirin 325 mg Tablet,Delayed Release (Dr/Ec) 325 mg PO DAILY Qty: 90 RF: 0 nitroglycerin [Nitrostat] 0.4 mg Tablet, Sublingual 0.4 mg Sublingual [id number] PRN (Reason: Chest Pain) Qty: 1 RF: 0 alprazolam [Xanax] 1 mg tablet 1 mg PO BID PRN (Reason: anxiety) Qty: 14 RF: 0 mupirocin 2 % ointment 1 applictn TOP BID Qty: 15 RF: 0 hydroxyzine HCl 25 mg tablet 25 mg PO Q8H PRN (Reason: itching) Qty: 30 RF: 0 clindamycin HCl 300 mg capsule 300 mg PO QID Qty: 40 RF: 0 sulfamethoxazole-trimethoprim [Bactrim DS] 800-160 mg tablet 1 tab PO BID Qty: 20 RF: 0 Referrals: Jacky Rios MD [Primary Care Provider] - <Estela Ba DO - Last Filed: 01/15/19 07:23> Cosign ED Attending Cosignature Attestation: I was immediately available in the department for consultation. This documentation has been reviewed and I agree with assessment and plan. Supervised by Estela Ba DO
[2019-01-14 13:38] VITALS: BP 141/103; PULSE 98; O2SAT 97
== END 2019-01-14 13:39 | disposition home or self-care (01) ==
PROVIDERS: Emergency Provider Nurse Practitioner Family; PCP Family Medicine
DX: L98.1 Factitial dermatitis (principal); F15.20 Other stimulant dependence, uncomplicated
CPT/HCPCS: 87070; 87077; 87147; 87186; 87205; 99282; 99283

== ENCOUNTER 2019-02-01 17:19 | Emergency (ER) | payer MEDICAID, SELFPAY ==
[2017-11-10 08:47] VITALS: BMI 22.8
[2019-02-01 17:23] VITALS: BP 121/79; PULSE 106; RESP 18; TEMP 36.4; O2SAT 96
--- NOTE | 2019-02-01 21:46 | ED.SKABFB ---
HPI - Skin/Abscess/Foreign Bdy <[facility] Last Filed: 02/01/19 21:48> General Chief complaint: Skin/Abscess/Foreign Body Stated complaint: Both hands has sores and getting infected Time Seen by Provider: 02/01/19 18:41 Related Data Home Medications Medication Instructions Recorded Confirmed Pain Medication 1 dose PO DIRECTED 11/10/17 11/10/17 metformin 1 tab PO BID 11/10/17 03/09/18 metoprolol tartrate 50 mg PO BID 11/10/17 08/21/18 naloxone 1 dose INTRANASAL DIRECTED 11/10/17 03/09/18 olanzapine 10 mg PO BID 11/10/17 08/21/18 tamsulosin 0.8 mg PO DAILY 11/10/17 08/21/18 Previous Rx's Medication Instructions Recorded alprazolam [Xanax] 1 mg PO BID PRN #14 tab 11/11/17 aspirin 325 mg PO DAILY #90 tab 11/11/17 nitroglycerin [Nitrostat] 0.4 mg SUBLINGUAL [id number] PRN #1 11/11/17 tab mupirocin 1 applictn TOP BID #15 gram 06/09/18 hydroxyzine HCl 25 mg PO Q8H PRN #30 tab 07/28/18 clindamycin HCl 300 mg PO QID #40 cap 08/21/18 sulfamethoxazole-trimethoprim 1 tab PO BID #20 tab 09/11/18 [Bactrim DS] mupirocin calcium 1 applictn TOP TID #15 gram 01/14/19 Allergies Allergy/AdvReac Type Severity Reaction Status Date / Time baclofen [BACLOFEN] Allergy Intermediate REACTS TO Verified 03/09/18 16:06 HIS METFORMIN ketorolac [From TORADOL] Allergy Intermediate HIVES Verified 03/09/18 16:06 PFSH <Adrian Larsen [facility] Last Filed: 02/01/19 21:48> Social History household members: spouse Smoking Status: Current every day smoker alcohol intake: former Exam <Adrian Larsen [facility] Last Filed: 02/01/19 21:48> Initial Vital Signs Initial Vital Signs: Vital Signs Temperature 97.6 F 02/01/19 17:23 Pulse Rate 106 H 02/01/19 17:23 Respiratory Rate 18 02/01/19 17:23 Blood Pressure 121/79 02/01/19 17:23 Pulse Oximetry 96 02/01/19 17:23 <Estela Ba DO - Last Filed: 02/02/19 05:38> Initial Vital Signs Initial Vital Signs: Vital Signs Temperature 97.6 F 02/01/19 17:23 Pulse Rate 106 H 02/01/19 17:23 Respiratory Rate 18 02/01/19 17:23 Blood Pressure 121/79 02/01/19 17:23 Pulse Oximetry 96 02/01/19 17:23 Course <ALEX Keith - Last Filed: 02/01/19 21:48> Vital Signs Vital signs: Vital Signs - 8 hr 02/01/19 17:23 Temperature 97.6 F Pulse Rate 106 H Respiratory Rate 18 Blood Pressure 121/79 Pulse Oximetry 96 <Estela Ba DO - Last Filed: 02/02/19 05:38> Vital Signs Vital signs: Vital Signs - 8 hr 02/01/19 17:23 Temperature 97.6 F Pulse Rate 106 H Respiratory Rate 18 Blood Pressure 121/79 Pulse Oximetry 96 Discharge Plan Departure Patient Disposition: Left Without Being Seen Clinical Impression: Patient left without being seen Discharge Date/Time: 02/01/19 18:41
== END 2019-02-01 18:41 | disposition left against medical advice (07) ==
PROVIDERS: Emergency Provider Nurse Practitioner Family; PCP Family Medicine
DX: L98.9 Disorder of the skin and subcutaneous tissue, unspecified (principal)
CPT/HCPCS: 99281

== ENCOUNTER 2019-04-07 16:04 | Emergency (ER) | payer MEDICAID, SELFPAY ==
[2017-11-10 08:47] VITALS: BMI 22.8
[2019-04-07 16:08] VITALS: BP 152/93; PULSE 104; RESP 20; TEMP 36.2; O2SAT 100
--- NOTE | 2019-04-08 00:16 | ED.SKABFB ---
HPI - Skin/Abscess/Foreign Bdy General Chief complaint: Skin/Abscess/Foreign Body Stated complaint: states parasites are eating up his skin Time Seen by Provider: 04/07/19 18:28 Source: patient Mode of arrival: Ambulatory Related Data Home Medications Medication Instructions Recorded Confirmed Pain Medication 1 dose PO DIRECTED 11/10/17 11/10/17 metformin 1 tab PO BID 11/10/17 03/09/18 metoprolol tartrate 50 mg PO BID 11/10/17 08/21/18 naloxone 1 dose INTRANASAL DIRECTED 11/10/17 03/09/18 olanzapine 10 mg PO BID 11/10/17 08/21/18 tamsulosin 0.8 mg PO DAILY 11/10/17 08/21/18 Previous Rx's Medication Instructions Recorded alprazolam [Xanax] 1 mg PO BID PRN #14 tab 11/11/17 aspirin 325 mg PO DAILY #90 tab 11/11/17 nitroglycerin [Nitrostat] 0.4 mg SUBLINGUAL [id number] PRN #1 11/11/17 tab mupirocin 1 applictn TOP BID #15 gram 06/09/18 hydroxyzine HCl 25 mg PO Q8H PRN #30 tab 07/28/18 clindamycin HCl 300 mg PO QID #40 cap 08/21/18 sulfamethoxazole-trimethoprim 1 tab PO BID #20 tab 09/11/18 [Bactrim DS] mupirocin calcium 1 applictn TOP TID #15 gram 01/14/19 Allergies Allergy/AdvReac Type Severity Reaction Status Date / Time baclofen [BACLOFEN] Allergy Intermediate REACTS TO Verified 03/09/18 16:06 HIS METFORMIN ketorolac [From TORADOL] Allergy Intermediate HIVES Verified 03/09/18 16:06 Patient History Social History household members: spouse Smoking Status: Current every day smoker alcohol intake: former alcohol intake frequency: 0-2 drinks per day Substance Use Type: heroin and methamphetamine Exam Initial Vital Signs Initial Vital Signs: Vital Signs Temperature 97.2 F L 04/07/19 16:08 Pulse Rate 104 H 04/07/19 16:08 Respiratory Rate 20 04/07/19 16:08 Blood Pressure 152/93 H 04/07/19 16:08 Pulse Oximetry 100 04/07/19 16:08 Discharge Plan Departure Patient Disposition: Left Without Being Seen Clinical Impression: Patient left without being seen Discharge Date/Time: 04/07/19 19:23
== END 2019-04-07 19:23 | disposition left against medical advice (07) ==
PROVIDERS: Emergency Provider Emergency Medicine; PCP Family Medicine
DX: L98.9 Disorder of the skin and subcutaneous tissue, unspecified (principal)
CPT/HCPCS: 99282

== ENCOUNTER 2019-04-15 13:43 | Emergency (ER) | payer MEDICAID, SELFPAY ==
[2017-11-10 08:47] VITALS: BMI 22.8
[2019-04-15 13:48] VITALS: BP 159/99; PULSE 108; RESP 16; TEMP 36.7; O2SAT 99; BMI 27.1
[2019-04-15 14:03] VITALS: BP 161/94; PULSE 107; RESP 18; TEMP 36.9; O2SAT 98
--- NOTE | 2019-04-15 14:04 | PC.NURSE ---
pt has multiple lesions on arms and hands with circular appearance, some with scabs, some with raised edges, others flat, pt states they can be painful at times, none are draining at this time
[2019-04-15 14:59] VITALS: BP 141/82; PULSE 95; O2SAT 95
--- NOTE | 2019-04-15 15:01 | ED_ITS ---
HPI - Wound/Laceration <Amaris Nobles PA-C - Last Filed: 04/15/19 20:39> General Chief Complaint: Wound/Laceration Stated Complaint: athletes foot on hands Time Seen by Provider: 04/15/19 13:52 Source: patient Mode of arrival: Ambulatory Limitations: no limitations History of Present Illness HPI narrative: This 63-year-old male comes to ED secondary to chronic sores, mostly on his hands and wrists, also noticing on his bruno area in the last few days and has 1 on his nose. He states that he has been using [id number] antifungal cream on these which seems to dry them out somewhat. He states especially his hand joints are somewhat sore. He denies any new fever. He states he has had some headache for the last 3-4 days all over his head. States that he has a history of neck pain, neck fusion and has had difficulty getting comfortable at night. He states OTC medication has not helped much though he is supposed to avoid NSAIDs due to history of bleed. He admits history of meth use but states he has not been using for the last couple of months now. He states he was not able to get to [place] to see his PCP for the skin symptoms so came here. He states that these can be quite itchy and little wormlike fibers may come out. He has not noted any pus draining in the last couple of days. He denies any acute vision change or vomiting. States he does get headaches occasionally, this has lasted a little longer but not atypical. He states that he thinks muscle relaxants helped in the past and believes he has had Soma and Robaxin. Related Data Home Medications Medication Instructions Recorded Confirmed Pain Medication 1 dose PO DIRECTED 11/10/17 11/10/17 metformin 1 tab PO BID 11/10/17 03/09/18 metoprolol tartrate 50 mg PO BID 11/10/17 08/21/18 naloxone 1 dose INTRANASAL DIRECTED 11/10/17 03/09/18 olanzapine 10 mg PO BID 11/10/17 08/21/18 tamsulosin 0.8 mg PO DAILY 11/10/17 08/21/18 Previous Rx's Medication Instructions Recorded alprazolam [Xanax] 1 mg PO BID PRN #14 tab 11/11/17 aspirin 325 mg PO DAILY #90 tab 11/11/17 nitroglycerin [Nitrostat] 0.4 mg SUBLINGUAL [id number] PRN #1 11/11/17 tab mupirocin 1 applictn TOP BID #15 gram 06/09/18 hydroxyzine HCl 25 mg PO Q8H PRN #30 tab 07/28/18 clindamycin HCl 300 mg PO QID #40 cap 08/21/18 sulfamethoxazole-trimethoprim 1 tab PO BID #20 tab 09/11/18 [Bactrim DS] mupirocin calcium 1 applictn TOP TID #15 gram 01/14/19 lidocaine [Lidoderm] 2 patch TOP DAILY #30 each 04/15/19 methocarbamol 500 mg PO Q6H #8 tab 04/15/19 mupirocin 1 applictn TOP TID #60 gram 04/15/19 sulfamethoxazole-trimethoprim 1 tab PO BID 7 Days #14 tab 04/15/19 [Bactrim DS] Allergies Allergy/AdvReac Type Severity Reaction Status Date / Time baclofen [BACLOFEN] Allergy Intermediate REACTS TO Verified 04/15/19 13:48 HIS METFORMIN ketorolac [From TORADOL] Allergy Intermediate HIVES Verified 04/15/19 13:48 Review of Systems <Amaris Nobles PA-C - Last Filed: 04/15/19 20:39> Review of Systems ROS Unobtainable: All systems reviewed & are unremarkable except as noted in HPI and below Patient History <Amaris Nobles PA-C - Last Filed: 04/15/19 20:39> Medical History (Updated 04/15/19 @ 15:41 by Amaris Nobles PA-C) Back pain (Acute) Heroin abuse (Acute) Heroin addiction (Acute) Surgical History (Updated 04/15/19 @ 15:45 by Amaris Nobles PA-C) History of fusion of cervical spine (Resolved) History of lumbar fusion (Chronic) Social History household members: spouse Smoking Status: Current every day smoker alcohol intake: former alcohol intake frequency: holidays/special occasions only Substance Use Type: former substance user, heroin and methamphetamine Exam <Amaris Nobles PA-C - Last Filed: 04/15/19 20:39> Narrative Exam Narrative: GENERAL APPEARANCE: Patient sitting comfortably, in no distress. HEENT: PERRL, EOMI, normal oropharynx NECK: Supple LUNGS: Clear to auscultation bilaterally. HEART: Rate and rhythm regular without murmur, normal S1 and S2, no S3 or S4. NEUROLOGIC: Alert and oriented, normal speech, and coordination. MUSCULOSKELETAL: No point tenderness over the cervical spine, slightly reduced range of motion in all [place], somewhat tight and tender at the distal cervical muscle insertions more on the left. Hand joints are noted to be nodular, more on the left DERMATOLOGIC: Numerous scarred and scabbed lesions on the hands bilaterally, most on the dorsum, most are 1-1.5 cm in diameter, with ulcerations within the scars. One lesion on the left posterior lateral hand has erythema surrounding to about 6 mm, nontender, mildly warm. Skin around the nails is scabbed and flaky. There are smaller scabbed lesions on the nose and bruno area. None are draining. Initial Vital Signs Initial Vital Signs: Vital Signs Temperature 98.0 F 04/15/19 13:48 Pulse Rate 108 H 04/15/19 13:48 Respiratory Rate 16 04/15/19 13:48 Blood Pressure 159/99 H 04/15/19 13:48 Pulse Oximetry 99 04/15/19 13:48 <Carly Boyer DO - Last Filed: 04/16/19 07:36> Initial Vital Signs Initial Vital Signs: Vital Signs Temperature 98.0 F 04/15/19 13:48 Pulse Rate 108 H 04/15/19 13:48 Respiratory Rate 16 04/15/19 13:48 Blood Pressure 159/99 H 04/15/19 13:48 Pulse Oximetry 99 04/15/19 13:48 Course <Amaris Nobles PA-C - Last Filed: 04/15/19 20:39> Vital Signs Vital signs: Vital Signs - 8 hr 04/15/19 13:48 04/15/19 14:03 04/15/19 14:59 Temperature 98.0 F 98.4 F Pulse Rate 108 H 107 H 95 H Respiratory Rate 16 18 Blood Pressure 159/99 H Blood Pressure [Right Arm] 161/94 H 141/82 H Pulse Oximetry 99 98 95 <DO Chris Newby Last Filed: 04/16/19 07:36> Vital Signs Vital signs: Vital Signs - 8 hr 04/15/19 13:48 04/15/19 14:03 04/15/19 14:59 Temperature 98.0 F 98.4 F Pulse Rate 108 H 107 H 95 H Respiratory Rate 16 18 Blood Pressure 159/99 H Blood Pressure [Right Arm] 161/94 H 141/82 H Pulse Oximetry 99 98 95 Discharge Plan Departure Patient Disposition: Home Clinical Impression: Cellulitis and abscess, Impetigo Headache Qualifiers: Headache type: tension-type Headache chronicity pattern: episodic headache Intractability: not intractable Qualified Code(s): G44.219 - Episodic tension- type headache, not intractable Discharge Date/Time: 04/15/19 15:54 Instructions: DI for Cellulitis -- Adult, DI for Headache Activity Restrictions/Additional Instructions: As we talked about, you should return if you have any acutely worsening symptoms or new symptoms such as fever, vomiting with your headache, or acutely increasing pain or redness or drainage from your sores. Please apply the topical antibiotic 2-3 times daily and start the oral antibiotic today. Avoid touching the lesions at all. It is okay to use your antifungal medicine around your nail borders as well. The old lesions are scarred and they will likely not fully heal. I suspect that your headache is due to your tight neck muscles, especially given the history that your telling me about and not being able to get into a comfortable position at night. Since muscle relaxants have helped you in the past, I have prescribed some methocarbamol for you to try as needed as well as topical pain patches for your neck. Please be sure not to drive or do activities were you need to be alert when you take the muscle relaxant. You can also add Tylenol as needed for pain. Please be sure to call your PCP when you leave here and arrange for follow-up in a few days for these issues Prescriptions: New mupirocin 2 % ointment 1 applictn TOP TID Qty: 60 RF: 0 methocarbamol 500 mg tablet 500 mg PO Q6H Qty: 8 RF: 0 lidocaine [Lidoderm] 5 % adhesive patch,medicated 2 patch TOP DAILY Qty: 30 RF: 0 sulfamethoxazole-trimethoprim [Bactrim DS] 800-160 mg tablet 1 tab PO BID 7 Days Qty: 14 RF: 0 No Action metformin 1,000 mg tablet 1 tab PO BID RF: 0 metoprolol tartrate 50 mg tablet 50 mg PO BID RF: 0 naloxone 4 mg/actuation spray,non-aerosol 1 dose Intranasal DIRECTED RF: 0 tamsulosin 0.4 mg capsule,extended release 24hr 0.8 mg PO DAILY RF: 0 olanzapine 10 mg tablet 10 mg PO BID RF: 0 Pain Medication 1 dose PO DIRECTED RF: 0 aspirin 325 mg Tablet,Delayed Release (Dr/Ec) 325 mg PO DAILY Qty: 90 RF: 0 nitroglycerin [Nitrostat] 0.4 mg Tablet, Sublingual 0.4 mg Sublingual [id number] PRN (Reason: Chest Pain) Qty: 1 RF: 0 alprazolam [Xanax] 1 mg tablet 1 mg PO BID PRN (Reason: anxiety) Qty: 14 RF: 0 mupirocin 2 % ointment 1 applictn TOP BID Qty: 15 RF: 0 hydroxyzine HCl 25 mg tablet 25 mg PO Q8H PRN (Reason: itching) Qty: 30 RF: 0 clindamycin HCl 300 mg capsule 300 mg PO QID Qty: 40 RF: 0 sulfamethoxazole-trimethoprim [Bactrim DS] 800-160 mg tablet 1 tab PO BID Qty: 20 RF: 0 mupirocin calcium 2 % cream 1 applictn TOP TID Qty: 15 RF: 0 Referrals: Shari Haas MD [Non-Staff] -
== END 2019-04-15 15:54 | disposition home or self-care (01) ==
PROVIDERS: Emergency Provider Internal Medicine; PCP Family Medicine
DX: L03.90 Cellulitis, unspecified (principal); L02.91 Cutaneous abscess, unspecified; L01.00 Impetigo, unspecified; G44.219 Episodic tension-type headache, not intractable
CPT/HCPCS: 99283

== ENCOUNTER 2019-06-09 15:14 | Emergency (ER) | payer MEDICAID, SELFPAY ==
[2017-11-10 08:47] VITALS: BMI 22.8
[2019-06-09 15:21] VITALS: BP 117/76; PULSE 87; RESP 16; TEMP 36.6; O2SAT 97; BMI 27.7
--- NOTE | 2019-06-09 15:40 | ED_ITS ---
HPI - Skin/Abscess/Foreign Bdy General Chief complaint: Skin/Abscess/Foreign Body Stated complaint: sores all over, thinks he has worms in his skin Time Seen by Provider: 06/09/19 15:23 Source: patient Mode of arrival: Ambulatory Limitations: no limitations History of Present Illness HPI narrative: Patient comes emergency department complaining of seeing worms come out of his skin. Patient states they look like white bowling pins with red tips and that he has pulled them even out of his toes. Patient states he ripped his toenail off yesterday because he saw ?a bunch? of the worms there. Patient has a history of methamphetamine abuse and has been seen multiple times in the emergency department for the same chief complaint of believing he has warms under skin. Patient states he has never followed up with Dermatology about this. He denies any other complaints at this time. No fevers or chills. No purulence drainage. He states his last meth use was last week. Related Data Home Medications Medication Instructions Recorded Confirmed Pain Medication 1 dose PO DIRECTED 11/10/17 11/10/17 metformin 1 tab PO BID 11/10/17 03/09/18 metoprolol tartrate 50 mg PO BID 11/10/17 08/21/18 naloxone 1 dose INTRANASAL DIRECTED 11/10/17 03/09/18 olanzapine 10 mg PO BID 11/10/17 08/21/18 tamsulosin 0.8 mg PO DAILY 11/10/17 08/21/18 Previous Rx's Medication Instructions Recorded alprazolam [Xanax] 1 mg PO BID PRN #14 tab 11/11/17 aspirin 325 mg PO DAILY #90 tab 11/11/17 nitroglycerin [Nitrostat] 0.4 mg SUBLINGUAL [id number] PRN #1 11/11/17 tab mupirocin 1 applictn TOP BID #15 gram 06/09/18 hydroxyzine HCl 25 mg PO Q8H PRN #30 tab 07/28/18 clindamycin HCl 300 mg PO QID #40 cap 08/21/18 sulfamethoxazole-trimethoprim 1 tab PO BID #20 tab 09/11/18 [Bactrim DS] mupirocin calcium 1 applictn TOP TID #15 gram 01/14/19 lidocaine [Lidoderm] 2 patch TOP DAILY #30 each 04/15/19 methocarbamol 500 mg PO Q6H #8 tab 04/15/19 mupirocin 1 applictn TOP TID #60 gram 04/15/19 Allergies Allergy/AdvReac Type Severity Reaction Status Date / Time baclofen [BACLOFEN] Allergy Intermediate REACTS TO Verified 06/09/19 15:21 HIS METFORMIN ketorolac [From TORADOL] Allergy Intermediate HIVES Verified 06/09/19 15:21 Review of Systems Review of Systems ROS Unobtainable: All systems reviewed & are unremarkable except as noted in HPI and below Constitutional Constitutional: Denies chills, Denies fatigue, Denies fever(s), Denies frequent falls, Denies lethargy and Denies weakness Eyes Eyes: Denies change in vision, Denies eye discharge, Denies irritation and Denies loss of vision ENT Ears, Nose, Mouth, and Throat: Denies change in voice, Denies dizziness, Denies neck pain, Denies sore throat and Denies throat swelling Cardiovascular Cardiovascular: Denies chest pain, Denies irregular heart rhythm, Denies lightheadedness, Denies palpitations, Denies dyspnea, Denies dyspnea on exertion and Denies orthopnea Respiratory Respiratory: Denies cough, Denies dyspnea, Denies dyspnea on exertion and Denies wheezing Gastrointestinal Gastrointestinal: Denies abdominal pain, Denies change in bowel habits, Denies diarrhea, Denies nausea and Denies vomiting Genitourinary Genitourinary: Denies hematuria, Denies flank pain, Denies urinary incontinence and Denies urinary urgency Musculoskeletal Musculoskeletal: Denies back pain, Denies muscle weakness, Denies neck pain, Denies numbness and Denies tingling Integumentary/Breasts Skin/Breast: Denies pruritus, Denies erythema, Denies rash and Reports wounds Neurologic Neurologic: Denies behavioral changes, Denies confusion, Denies dizziness, Denies frequent falls, Denies loss of vision, Denies numbness, Denies tingling and Denies weakness Psychiatric Psychiatric: Denies anxiety, Denies behavioral changes, Denies confusion, Denies depression, Denies homicidal ideation and Denies suicidal ideation Endocrine Endocrine: Denies fatigue, Denies flushing and Denies palpitations Hematologic/Lymphatic Hematologic/Lymphatic: Denies easy bruising Allergic/Immunologic Allergic/Immunologic: Denies urticaria, Denies throat swelling and Denies wheezing Patient History Medical History Back pain (Acute) Heroin abuse (Acute) Heroin addiction (Acute) Surgical History History of fusion of cervical spine (Resolved) History of lumbar fusion (Chronic) Social History household members: spouse Smoking Status: Current every day smoker alcohol intake: former Smoking Status: Current every day smoker alcohol intake frequency: holidays/special occasions only Substance Use Type: former substance user, heroin and methamphetamine Exam Initial Vital Signs Initial Vital Signs: Vital Signs Temperature 98 F 06/09/19 15:21 Pulse Rate 87 06/09/19 15:21 Respiratory Rate 16 06/09/19 15:21 Blood Pressure 117/76 06/09/19 15:21 Pulse Oximetry 97 06/09/19 15:21 Const General: cooperative and well developed Nutritional Appearance: well nourished [facility] Head: normocephalic and atraumatic Ears: external ears normal and TM's normal bilaterally Nose: external nose normal and No nasal discharge Face and sinus: sinuses nontender, face symmetric, no sinus tenderness and No dry mucous membranes Mouth: oral mucosae normal and moist mucous membranes Teeth and gingiva: dentition normal Throat: tonsils normal and uvula midline Eyes General: appearance normal, both eyes and all related structures Eyelids: eyelids normal Conjunctivae: conjunctivae normal Sclera: sclerae normal Pupils: PERRL EOM: EOM intact bilaterally Neck Neck: normal visual inspection, trachea midline, No lymphadenopathy, No midline deformity and No JVD Lymphatic: No lymphedema Chest Chest: normal inspection of the chest Resp Effort & Inspection: normal respiratory effort, able to speak in complete sentences, no respiratory distress and no use of accessory muscles Auscultation: clear to auscultation bilaterally, no rales, no rhonchi and no wheezes Cardio Rate: regular rate Rhythm: regular rhythm Heart Sounds: no click, no gallops, no murmurs and no rubs Pulses: normal peripheral pulses GI Inspection: non-distended Palpation: soft, no hepatosplenomegaly, No guarding, No pulsatile mass and No tender Auscultation: normal bowel sounds Back/Spine/Pelvis Back: No CVA tenderness Cervical Spine: cervical ROM normal and No pain with cervical ROM Thoracic/Lumbar Spine: thoracic and lumbar spine normal to inspection Skin General: No jaundice and No petechiae Other: Patient has multiple scabbed lesions and scars on his upper extremities and face. No erythema or fluctuance is noted. No purulent drainage. Neuro General: alert, oriented x3, gait normal and no focal motor deficits Speech: speech normal Extrem General: full ROM, no clubbing, cyanosis or edema, no pedal edema and no calf tenderness Psych Appearance: well kempt Mental Status: mental status grossly normal Attitude: cooperative Thought Content: normal and suicidality Judgment: judgment good Course Course Course Narrative: I did discuss with the patient that in this climate and this region of the world, we do not see subcutaneous warm infestations. Furthermore, there is no evidence of any such thing on the patient's skin, even if the patient did have risk factor such as recently traveling to a tropical location. I've advised the patient that if he has further concerns about his skin, he may follow up Dermatology and primary care. Patient has been given contact information for both of these. The patient requested something for his ?nerves? in the emergency department and was given a dose of Zyprexa. Patient is stable for discharge home. Orders Ordered: Discontinued Medications Olanzapine (Zyprexa Zydis) 20 mg PO NOW ONE Stop: 06/09/19 15:39 Last Admin: 06/09/19 15:44 Dose: 20 mg Documented by: KATHIE Vital Signs Vital signs: Vital Signs - 8 hr 06/09/19 15:21 Temperature 98 F Pulse Rate 87 Respiratory Rate 16 Blood Pressure 117/76 Pulse Oximetry 97 MDM - Skin/Abscess/Foreign Bdy Medical Records Attestation: I reviewed the patient's medical records. Discharge Plan Departure Patient Disposition: Home Clinical Impression: Chronic wound of extremity Discharge Date/Time: 06/09/19 15:58 Instructions: Cleaning Wounds With Drinkable Tap Water Activity Restrictions/Additional Instructions: There is no evidence of worms under your skin. This is not even a condition that is seen in this climate. Please follow-up with dermatology if you have further concerns regarding your skin. Prescriptions: No Action metformin 1,000 mg tablet 1 tab PO BID RF: 0 metoprolol tartrate 50 mg tablet 50 mg PO BID RF: 0 naloxone 4 mg/actuation spray,non-aerosol 1 dose Intranasal DIRECTED RF: 0 tamsulosin 0.4 mg capsule,extended release 24hr 0.8 mg PO DAILY RF: 0 olanzapine 10 mg tablet 10 mg PO BID RF: 0 Pain Medication 1 dose PO DIRECTED RF: 0 aspirin 325 mg Tablet,Delayed Release (Dr/Ec) 325 mg PO DAILY Qty: 90 RF: 0 nitroglycerin [Nitrostat] 0.4 mg Tablet, Sublingual 0.4 mg Sublingual [id number] PRN (Reason: Chest Pain) Qty: 1 RF: 0 alprazolam [Xanax] 1 mg tablet 1 mg PO BID PRN (Reason: anxiety) Qty: 14 RF: 0 mupirocin 2 % ointment 1 applictn TOP BID Qty: 15 RF: 0 hydroxyzine HCl 25 mg tablet 25 mg PO Q8H PRN (Reason: itching) Qty: 30 RF: 0 clindamycin HCl 300 mg capsule 300 mg PO QID Qty: 40 RF: 0 sulfamethoxazole-trimethoprim [Bactrim DS] 800-160 mg tablet 1 tab PO BID Qty: 20 RF: 0 mupirocin calcium 2 % cream 1 applictn TOP TID Qty: 15 RF: 0 mupirocin 2 % ointment 1 applictn TOP TID Qty: 60 RF: 0 methocarbamol 500 mg tablet 500 mg PO Q6H Qty: 8 RF: 0 lidocaine [Lidoderm] 5 % adhesive patch,medicated 2 patch TOP DAILY Qty: 30 RF: 0 Referrals: [facility] Dermatology [Provider Group] Jacky Rios MD [Primary Care Provider] -
[2019-06-09] MEDS: OLANZapine ODT 10 MG TAB 20 MG PO (15:44)
--- NOTE | 2019-06-09 15:55 | PC.NURSE ---
pt with chronic skin rash. tearful but cooperative with care. face,bilateral arms with chronic multiple open skin,sores,scabbing. pt denies fever,vomiting.
== END 2019-06-09 15:58 | disposition home or self-care (01) ==
PROVIDERS: Emergency Provider Emergency Medicine; PCP Family Medicine
DX: Z48.00 Encounter for change or removal of nonsurgical wound dressing (principal)
CPT/HCPCS: 99283

== ENCOUNTER 2019-06-17 12:27 | Emergency (ER) | payer MEDICAID, SELFPAY ==
[2017-11-10 08:47] VITALS: BMI 22.8
--- NOTE | 2019-06-17 12:37 | DI.RAD.S_ITS ---
PROCEDURE: XR CHEST 1V INDICATIONS: chest pain TECHNIQUE: One view of the chest was acquired. COMPARISON: [facility], , CHEST 1 VIEW, 07/16/2015, 18:32. FINDINGS: Surgical changes and devices: Cervical spine fixation hardware partially visualized. Lungs and pleura: Lungs are clear. No pleural effusions or pneumothorax. Mediastinum: Mediastinal contours appear normal. Heart size is normal. Bones and chest wall: No suspicious bony lesions. Overlying soft tissues appear unremarkable. IMPRESSION: No acute cardiopulmonary disease process. Dictated by: Herlinda Farley MD, PhD on 06/17/2019 at 13:40 Approved by: Herlinda Farley MD, PhD on 06/17/2019 at 13:41
[2019-06-17 12:38] VITALS: BP 136/91; PULSE 69; RESP 13; TEMP 36.6; O2SAT 100; BMI 28.0
--- NOTE | 2019-06-17 12:59 | ED_ITS ---
HPI - Chest Pain <ALXE Kim - Last Filed: 06/17/19 21:56> General Chief Complaint: Chest Pain Stated Complaint: heart rate weird, and abnormal labs Time Seen by Provider: 06/17/19 12:46 Source: patient Mode of arrival: Ambulatory Limitations: no limitations History of Present Illness HPI narrative: 63-year-old male with a history of previous MIs, IV meth and heroin use, presents emergency department after being sent here from the methadone clinic for an irregular heart rate and elevated potassium. Patient states he has had substernal chest pressure that has been intermittent over the past week, he states it is worse when he attempts to pick anything up and better with rest. He states he has had an occasional episode of lightheadedness and occasional SOB when lifting heavy objects. Patient denies shortness of breath, nausea, vomiting, diarrhea, fevers, chills, headache, vision changes, or other concerns. He states he last used IV meth and heroin about 3 days ago. Denies history of DVTs, PEs, or long trips. Related Data Home Medications Medication Instructions Recorded Confirmed Pain Medication 1 dose PO DIRECTED 11/10/17 11/10/17 metformin 1,000 mg PO BID 11/10/17 06/17/19 naloxone 1 dose INTRANASAL DIRECTED 11/10/17 03/09/18 olanzapine 10 mg PO BID 11/10/17 08/21/18 tamsulosin 0.8 mg PO DAILY 11/10/17 06/17/19 metoprolol tartrate 50 mg PO BID 06/17/19 06/17/19 Previous Rx's Medication Instructions Recorded alprazolam [Xanax] 1 mg PO BID PRN #14 tab 11/11/17 aspirin 325 mg PO DAILY #90 tab 11/11/17 nitroglycerin [Nitrostat] 0.4 mg SUBLINGUAL [id number] PRN #1 11/11/17 tab lidocaine [Lidoderm] 2 patch TOP DAILY #30 each 04/15/19 Allergies Allergy/AdvReac Type Severity Reaction Status Date / Time baclofen [BACLOFEN] Allergy Intermediate REACTS TO Verified 06/17/19 12:38 HIS METFORMIN ketorolac [From TORADOL] Allergy Intermediate HIVES Verified 06/17/19 12:38 Review of Systems <ALEX Kim - Last Filed: 06/17/19 21:56> Review of Systems Narrative: REVIEW OF SYSTEMS: GENERAL: Denies fever or chills. HENT: No head trauma, hearing loss or sore throat. EYES: No loss of vision, double vision, eye pain, or irritation. CARDIOVASCULAR: Complains of intermittent chest pressure, see HPI. RESPIRATORY: Denies cough. GASTROINTESTINAL: No nausea, vomiting, diarrhea, or constipation. GENITOURINARY: No flank pain or dysuria. MUSCULOSKELETAL: No pain, weakness, or deformities. INTEGUMENTARY: No rash, lesions, or pruritus. NEURO: No numbness, tingling, memory loss, or confusion. PSYCH: No behavior or mood changes. Patient History <ALEX Kim - Last Filed: 06/17/19 21:56> Medical History Back pain (Acute) Heroin abuse (Acute) Heroin addiction (Acute) Surgical History History of fusion of cervical spine (Resolved) History of lumbar fusion (Chronic) Social History household members: spouse Smoking Status: Current every day smoker alcohol intake: former Smoking Status: Current every day smoker alcohol intake frequency: holidays/special occasions only Substance Use Type: former substance user, heroin and methamphetamine Exam <ALEX Kim - Last Filed: 06/17/19 21:56> Initial Vital Signs Initial Vital Signs: Vital Signs Temperature 97.9 F 06/17/19 12:38 Pulse Rate 69 06/17/19 12:38 Respiratory Rate 13 06/17/19 12:38 Blood Pressure 136/91 H 06/17/19 12:38 Pulse Oximetry 100 06/17/19 12:38 PHYSICAL EXAMINATION: GENERAL: Well groomed, alert, and cooperative. Answers questions promptly and appropriately. Vital signs noted. HENT: Normocephalic, atraumatic. Ear canals patent. Oral mucosa is pink and moist. EYES: PERRLA, conjunctiva pink, sclera white, no periorbital swelling. CHEST: Normal to inspection and without deformities. Increased pain with palpation of the right-sided sternal costal border. CARDIOVASCULAR: S1 and S2 sounds normal. Regular rate and rhythm, no murmurs, clicks, or bruits while sitting or lying. No pedal edema. RESPIRATORY: Normal respiratory rate, trachea midline, airway patent. No stridor, nasal flaring or accessory muscle use. Lungs are clear in all [place] without wheeze, rhonchi, or crackles. GASTROINTESTINAL: Bowel sounds normoactive. Abdomen is soft and non-tender. No organomegaly. MUSCULOSKELETAL: Normal gait and coordination. Equal tone and mass bilaterally. EXTREMITIES: CMS intact. Moves all extremities. SKIN: Warm, dry, soft, appropriate color for ethnicity. Multiple scarring and track allen noted to arms, a small indurated 1 cm in diameter area noted around the scabbed to right antecubital area, no fluctuance. NEURO: Alert and Oriented X 3. Good coordination. No ataxia, or sensory deficits, or cognitive issues. PSYCH: Appropriate affect and mood. <Renard Arriaza MD - Last Filed: 06/21/19 20:54> Initial Vital Signs Initial Vital Signs: Vital Signs Temperature 97.9 F 06/17/19 12:38 Pulse Rate 69 06/17/19 12:38 Respiratory Rate 13 06/17/19 12:38 Blood Pressure 136/91 H 06/17/19 12:38 Pulse Oximetry 100 06/17/19 12:38 Scores <ALEX Kim - Last Filed: 06/17/19 21:56> HEART Score Heart Score history: Moderately Suspicious Heart Score EKG: Normal Heart Score Age: 45-64 years old Heart Score risk factors: 1-2 risk factors Heart Score troponin: < or = to normal limit Heart Score Total: 3 Wells' Criteria for PE Clinical signs and symptoms of DVT: No PE is #1 Dx or equally likely: No Heart rate > 100: No Immobilization at least 3 days or surg in previous 4 weeks: No History of PE or DVT: No Hemoptysis: No Malignancy w/Treatment within 6 months or palliative: No Wells' PE Score total: 0 Course <ALEX Kim - Last Filed: 06/17/19 21:56> Orders Ordered: ED Orders 06/17/19 13:08 C-Reactive Protein Quant Stat Complete Blood Count AUTO DIFF Stat Comprehensive Metabolic Panel Stat Erythrocyte Sedimentation Rate Stat Lipase Stat Partial Thromboplastin Time Stat Prothrombin Time INR Stat Troponin & CK Cardiac Panel Stat Consultations Consultation #1: Patient was staffed with Dr. Arriaza Vital Signs Vital signs: Vital Signs - 8 hr 06/17/19 14:42 Pulse Rate 65 Blood Pressure 122/81 <Renard Arriaza MD - Last Filed: 06/21/19 20:54> Orders Ordered: ED Orders 06/17/19 13:08 C-Reactive Protein Quant Stat Complete Blood Count AUTO DIFF Stat Comprehensive Metabolic Panel Stat Erythrocyte Sedimentation Rate Stat Lipase Stat Partial Thromboplastin Time Stat Prothrombin Time INR Stat Troponin & CK Cardiac Panel Stat Vital Signs Vital signs: Vital Signs - 8 hr 06/17/19 14:42 Pulse Rate 65 Blood Pressure 122/81 MDM - Chest Pain <ALEX Kim - Last Filed: 06/17/19 21:56> Medical Records Data Attestation: I reviewed the patient's medical records. Lab Data Attestation: I reviewed the patient's lab results. Result diagrams: 06/17/19 13:08 06/17/19 13:08 Labs: Lab Results 06/17/19 06/17/19 06/17/19 Range/Units 13:08 13:08 13:08 WBC 7.2 (4.5-11.0) X10^3/uL RBC 4.68 (4.5-5.9) X10^6/uL Hgb 12.8 L (13.5-17.5) g/dL Hct 38.3 L (41-53) % MCV 82.0 (80-100) fL MCH 27.3 (26-34) PG MCHC 33.3 (30-36) % RDW 15.5 H (11.6-14.8) % Plt Count 154 (150-400) X10^3/uL Neut % (Auto) 65.1 (50-75) % Lymph % (Auto) 21.2 L (25-40) % [place] % (Auto) 9.9 (3-14) % Eos % (Auto) 3.0 (2-4) % Baso % (Auto) 0.8 (0-2) % Neut # (Auto) 4700 (9381-2010) /uL Lymph # (Auto) 1500 (8641-9169) /uL [place] # (Auto) 700 (0-900) /uL Eos # (Auto) 200 (0-450) /uL Baso # (Auto) 100 (0-100) /uL ESR (0-15) MM/HR PT 11.7 (10.1-12.7) SECONDS INR 1.0 (0.9-1.3) APTT 37 H (26.4-36.2) SECONDS Sodium 139 (137-145) mmol/L Potassium 3.9 (3.4-5.1) mmol/L Chloride 105 (98-107) mmol/L Carbon Dioxide 24 (22-32) mmol/L BUN 14 (9-20) mg/dL Creatinine 0.90 (0.66-1.25) mg/dL Estimated GFR > 60.0 (>60) mL/min BUN/Creatinine Ratio 15.6 (6-22) Glucose 83 (80-110) mg/dL Calcium 8.9 (8.4-10.2) mg/dL Total Bilirubin 0.8 (0.2-1.3) mg/dL AST 123 H (17-59) IU/L ALT 102 H (<50) IU/L Alkaline Phosphatase 95 (38-126) U/L Total Creatine Kinase 120 (55-170) U/L CK-MB (CK-2) 1.42 (<2.37) ng/mL CK-MB (CK-2) Rel Index 1.2 L (1.5-5.0) % Troponin I < 0.012 (0.01-0.034) ng/mL C-Reactive Protein (<1.0) mg/dL Total Protein 8.0 (6.3-8.2) g/dL Albumin 4.0 (3.5-5.0) g/dL Globulin 4.0 (1.7-4.1) g/dL Albumin/Globulin Ratio 1.0 (1.0-2.8) Lipase 63 (23-300) U/L 06/17/19 06/17/19 Range/Units 13:08 13:08 WBC (4.5-11.0) X10^3/uL RBC (4.5-5.9) X10^6/uL Hgb (13.5-17.5) g/dL Hct (41-53) % MCV (80-100) fL MCH (26-34) PG MCHC (30-36) % RDW (11.6-14.8) % Plt Count (150-400) X10^3/uL Neut % (Auto) (50-75) % Lymph % (Auto) (25-40) % [place] % (Auto) (3-14) % Eos % (Auto) (2-4) % Baso % (Auto) (0-2) % Neut # (Auto) (1462-9139) /uL Lymph # (Auto) (4314-1112) /uL [place] # (Auto) (0-900) /uL Eos # (Auto) (0-450) /uL Baso # (Auto) (0-100) /uL ESR 23 H (0-15) MM/HR PT (10.1-12.7) SECONDS INR (0.9-1.3) APTT (26.4-36.2) SECONDS Sodium (137-145) mmol/L Potassium (3.4-5.1) mmol/L Chloride (98-107) mmol/L Carbon Dioxide (22-32) mmol/L BUN (9-20) mg/dL Creatinine (0.66-1.25) mg/dL Estimated GFR (>60) mL/min BUN/Creatinine Ratio (6-22) Glucose (80-110) mg/dL Calcium (8.4-10.2) mg/dL Total Bilirubin (0.2-1.3) mg/dL AST (17-59) IU/L ALT (<50) IU/L Alkaline Phosphatase (38-126) U/L Total Creatine Kinase (55-170) U/L CK-MB (CK-2) (<2.37) ng/mL CK-MB (CK-2) Rel Index (1.5-5.0) % Troponin I (0.01-0.034) ng/mL C-Reactive Protein < 0.5 (<1.0) mg/dL Total Protein (6.3-8.2) g/dL Albumin (3.5-5.0) g/dL Globulin (1.7-4.1) g/dL Albumin/Globulin Ratio (1.0-2.8) Lipase (23-300) U/L Imaging Data Chest x-ray: Radiologist's Impression: [facility] [address] [place] [id number] XRay Report Signed Patient: Jacobo Dash RMR#: [id number] : 8Acct:[id number] Age/Sex: 63 / MDate of Service: 06/17/19 Loc: ED Accession Number: [id number] Procedure: XR chest 1V Ordering Provider: Renard Arriaza MD PROCEDURE: XR CHEST 1V INDICATIONS: chest pain TECHNIQUE: One view of the chest was acquired. COMPARISON: [facility], CHEST 1 VIEW, 07/16/2015, 18:32. FINDINGS: Surgical changes and devices: Cervical spine fixation hardware partially visualized. Lungs and pleura: Lungs are clear. No pleural effusions or pneumothorax. Mediastinum: Mediastinal contours appear normal. Heart size is normal. Bones and chest wall: No suspicious bony lesions. Overlying soft tissues appear unremarkable. IMPRESSION: No acute cardiopulmonary disease process. Dictated by: Herlinda Farley MD, PhD on 06/17/2019 at 13:40 Approved by: Herlinda Farley MD, PhD on 06/17/2019 at 13:41 ECG Data Interpretation: EKG given to Dr. Aguirre per protocol. Normal sinus rhythm, no ST elevation or ST depression. [facility] Narrative Medical decision making narrative: 63-year-old male history of IV drug use originally presented emergency department for concerns of abnormal potassium due to EKG that was taken when applying for methadone. I suspect this is most likely musculoskeletal in origin such as costochondritis due to reproducible pain and description of worsening pain while lifting heavy objects. Less likely cardiac origin as pain is reproducible with palpation to costal sternal border, heart score of 2 indicating low risk, EKG is non-remarkable, and electrolytes within normal limits. Less likely PE as patient is very low risk using Wells criteria, patient is not hypoxic or tachycardic, and with minimal risk factors. Less likely pericarditis or endocarditis or valvular disease due to lack of murmurs, lack of fever, and non remarkable changes to ESR and sed rate. However, patient was explicitly counseled on this as he has an increased risk due to IV drug use. Patient was encouraged to follow up with his primary care provider in 1-2 weeks for further evaluation. He was given very strict return precautions for new or worsening symptoms. Patient verbalized understanding and agreed plan of care. <Renard Arriaza MD - Last Filed: 06/21/19 20:54> Lab Data Labs: Lab Results 06/17/19 06/17/19 06/17/19 Range/Units 13:08 13:08 13:08 WBC 7.2 (4.5-11.0) X10^3/uL RBC 4.68 (4.5-5.9) X10^6/uL Hgb 12.8 L (13.5-17.5) g/dL Hct 38.3 L (41-53) % MCV 82.0 (80-100) fL MCH 27.3 (26-34) PG MCHC 33.3 (30-36) % RDW 15.5 H (11.6-14.8) % Plt Count 154 (150-400) X10^3/uL Neut % (Auto) 65.1 (50-75) % Lymph % (Auto) 21.2 L (25-40) % [place] % (Auto) 9.9 (3-14) % Eos % (Auto) 3.0 (2-4) % Baso % (Auto) 0.8 (0-2) % Neut # (Auto) 4700 (1214-4921) /uL Lymph # (Auto) 1500 (5180-9763) /uL [place] # (Auto) 700 (0-900) /uL Eos # (Auto) 200 (0-450) /uL Baso # (Auto) 100 (0-100) /uL ESR (0-15) MM/HR PT 11.7 (10.1-12.7) SECONDS INR 1.0 (0.9-1.3) APTT 37 H (26.4-36.2) SECONDS Sodium 139 (137-145) mmol/L Potassium 3.9 (3.4-5.1) mmol/L Chloride 105 (98-107) mmol/L Carbon Dioxide 24 (22-32) mmol/L BUN 14 (9-20) mg/dL Creatinine 0.90 (0.66-1.25) mg/dL Estimated GFR > 60.0 (>60) mL/min BUN/Creatinine Ratio 15.6 (6-22) Glucose 83 (80-110) mg/dL Calcium 8.9 (8.4-10.2) mg/dL Total Bilirubin 0.8 (0.2-1.3) mg/dL AST 123 H (17-59) IU/L ALT 102 H (<50) IU/L Alkaline Phosphatase 95 (38-126) U/L Total Creatine Kinase 120 (55-170) U/L CK-MB (CK-2) 1.42 (<2.37) ng/mL CK-MB (CK-2) Rel Index 1.2 L (1.5-5.0) % Troponin I < 0.012 (0.01-0.034) ng/mL C-Reactive Protein (<1.0) mg/dL Total Protein 8.0 (6.3-8.2) g/dL Albumin 4.0 (3.5-5.0) g/dL Globulin 4.0 (1.7-4.1) g/dL Albumin/Globulin Ratio 1.0 (1.0-2.8) Lipase 63 (23-300) U/L 06/17/19 06/17/19 Range/Units 13:08 13:08 WBC (4.5-11.0) X10^3/uL RBC (4.5-5.9) X10^6/uL Hgb (13.5-17.5) g/dL Hct (41-53) % MCV (80-100) fL MCH (26-34) PG MCHC (30-36) % RDW (11.6-14.8) % Plt Count (150-400) X10^3/uL Neut % (Auto) (50-75) % Lymph % (Auto) (25-40) % [place] % (Auto) (3-14) % Eos % (Auto) (2-4) % Baso % (Auto) (0-2) % Neut # (Auto) (7303-7210) /uL Lymph # (Auto) (6354-4784) /uL [place] # (Auto) (0-900) /uL Eos # (Auto) (0-450) /uL Baso # (Auto) (0-100) /uL ESR 23 H (0-15) MM/HR PT (10.1-12.7) SECONDS INR (0.9-1.3) APTT (26.4-36.2) SECONDS Sodium (137-145) mmol/L Potassium (3.4-5.1) mmol/L Chloride (98-107) mmol/L Carbon Dioxide (22-32) mmol/L BUN (9-20) mg/dL Creatinine (0.66-1.25) mg/dL Estimated GFR (>60) mL/min BUN/Creatinine Ratio (6-22) Glucose (80-110) mg/dL Calcium (8.4-10.2) mg/dL Total Bilirubin (0.2-1.3) mg/dL AST (17-59) IU/L ALT (<50) IU/L Alkaline Phosphatase (38-126) U/L Total Creatine Kinase (55-170) U/L CK-MB (CK-2) (<2.37) ng/mL CK-MB (CK-2) Rel Index (1.5-5.0) % Troponin I (0.01-0.034) ng/mL C-Reactive Protein < 0.5 (<1.0) mg/dL Total Protein (6.3-8.2) g/dL Albumin (3.5-5.0) g/dL Globulin (1.7-4.1) g/dL Albumin/Globulin Ratio (1.0-2.8) Lipase (23-300) U/L Discharge Plan Departure Patient Disposition: Home Clinical Impression: Costochondritis, Atypical chest pain Discharge Date/Time: 06/17/19 14:43 Instructions: DI for Costochondritis Activity Restrictions/Additional Instructions: Thank you for entrusting me with your care today. As discussed, your labs and chest x-ray are within normal limits. Your potassium is 3.9 which is normal and your EKG is non-remarkable. You can take ibuprofen as needed for pain. I suspect the discomfort is due to costochondritis and or a muscle strain. Do not lift heavy objects for the next few weeks. Please follow up with your primary care provider in 1-2 weeks for further evaluation. Return emergency department for any new or worsening symptoms such as worsening chest pain, shortness of breath, dizziness, vomiting, fevers, syncope, or other concerns. Prescriptions: No Action metformin 1,000 mg tablet 1,000 mg PO BID RF: 0 naloxone 4 mg/actuation spray,non-aerosol 1 dose Intranasal DIRECTED RF: 0 tamsulosin 0.4 mg capsule,extended release 24hr 0.8 mg PO DAILY RF: 0 olanzapine 10 mg tablet 10 mg PO BID RF: 0 Pain Medication 1 dose PO DIRECTED RF: 0 aspirin 325 mg Tablet,Delayed Release (Dr/Ec) 325 mg PO DAILY Qty: 90 RF: 0 nitroglycerin [Nitrostat] 0.4 mg Tablet, Sublingual 0.4 mg Sublingual [id number] PRN (Reason: Chest Pain) Qty: 1 RF: 0 alprazolam [Xanax] 1 mg tablet 1 mg PO BID PRN (Reason: anxiety) Qty: 14 RF: 0 lidocaine [Lidoderm] 5 % adhesive patch,medicated 2 patch TOP DAILY Qty: 30 RF: 0 metoprolol tartrate 50 mg tablet 50 mg PO BID RF: 0 Referrals: Jacky Rios MD [Primary Care Provider] -
[2019-06-17 13:17] LABS: Add Manual Diff / Slide Review NO; Basophils Absolute Auto 100 /uL (0-100); Basophils Percent Auto 0.8 % (0-2); Eosinophils Absolute Auto 200 /uL (0-450); Hematocrit 38.3 % (41-53); Hemoglobin 12.8 g/dL (13.5-17.5); Lymphocytes Absolute Auto 1500 /uL (1100-4500); Lymphocytes Percent Auto 21.2 % (25-40); Mean Corpuscular HGB Conc 33.3 % (30-36); Mean Corpuscular Hemoglobin 27.3 PG (26-34); Monocytes Absolute Auto 700 /uL (0-900); Monocytes Percent Auto 9.9 % (3-14); Neutrophils Absolute Auto 4700 /uL (1500-7000); Neutrophils Percent Auto 65.1 % (50-75); Platelet Count 154 X10^3/uL (150-400); Red Blood Cell Count 4.68 X10^6/uL (4.5-5.9); Red Cell Distribution Width 15.5 % (11.6-14.8); White Blood Cell Count 7.2 X10^3/uL (4.5-11.0)
[2019-06-17 13:25] LABS: Prothrombin Time 11.7 SECONDS (10.1-12.7)
[2019-06-17 13:27] LABS: PTT Partial Thromboplastin Tim 37 SECONDS (26.4-36.2)
[2019-06-17 13:30] VITALS: BP 122/81; PULSE 60; RESP 20
[2019-06-17 13:31] LABS: Alanine Aminotransferase 102 IU/L (<50); Alkaline Phosphatase 95 U/L (38-126); Aspartate Aminotransferase 123 IU/L (17-59); BUN Creatinine Ratio 15.6 (6-22); Bilirubin Total 0.8 mg/dL (0.2-1.3); Blood Urea Nitrogen 14 mg/dL (9-20); Calcium 8.9 mg/dL (8.4-10.2); Carbon Dioxide 24 mmol/L (22-32); Chloride 105 mmol/L (98-107); Creatine Kinase 120 U/L (55-170); Estimated Glomerular Filt Rate > 60.0 mL/min (>60); Glucose 83 mg/dL (80-110); HEMOLYSIS < 15 (0-50); Lipase 63 U/L (23-300); Potassium 3.9 mmol/L (3.4-5.1); Sodium 139 mmol/L (137-145)
[2019-06-17 13:37] LABS: C-Reactive Protein Quant < 0.5 mg/dL (<1.0)
[2019-06-17 13:42] LABS: Troponin I < 0.012 ng/mL (0.01-0.034)
[2019-06-17 13:46] LABS: CKMB % Relative Index 1.2 % (1.5-5.0); Creatine Kinase MB 1.42 ng/mL (<2.37)
[2019-06-17 13:55] LABS: Erythrocyte Sedimentation Rate 23 MM/HR (0-15)
[2019-06-17 14:42] VITALS: BP 122/81; PULSE 65
== END 2019-06-17 14:43 | disposition home or self-care (01) ==
PROVIDERS: Emergency Medicine; Emergency Provider Nurse Practitioner; PCP Family Medicine
DX: M94.0 Chondrocostal junction syndrome [Tietze] (principal); R07.89 Other chest pain
CPT/HCPCS: 36415; 71045; 80053; 82550; 82553; 83690; 84484; 85025; 85610; 85651; 85730; 86140; 93005; 93010; 99283; 99285

== ENCOUNTER 2019-07-12 15:38 | Emergency (ER) | payer MEDICAID, SELFPAY ==
[2017-11-10 08:47] VITALS: BMI 22.8
[2019-07-12 15:41] VITALS: BP 154/98; PULSE 98; RESP 22; TEMP 36.8; O2SAT 100; BMI 26.6
== END 2019-07-12 23:42 | disposition left against medical advice (07) ==
PROVIDERS: Emergency Provider Emergency Medicine; PCP Family Medicine
CPT/HCPCS: 99281

== ENCOUNTER 2019-11-14 19:56 | Emergency (ER) | payer MEDICAID, SELFPAY ==
[2017-11-10 08:47] VITALS: BMI 22.8
--- NOTE | 2019-11-14 20:03 | ED_ITS ---
HPI - Extremity Injury (Upper) General Chief Complaint: Wound/Laceration Stated Complaint: nagy right hand, skin burnt off Time Seen by Provider: 11/14/19 19:58 Source: patient and family Mode of arrival: Ambulatory Limitations: no limitations History of Present Illness HPI narrative: 64-year-old male smoker and polysubstance abuser with a history of frequent skin infections and chronic skin picking presents with a chief complaint of an accidental burn on the dorsum of his right hand. He had a piece of hot plastic fall on the dorsum of his right middle finger and overlying the 3rd MCP. He has mild pain and some minimal surrounding erythema. He denies fever, chills, N/V. complaint: injury to: right Onset (ago): day(s) Place: home Severity: mild Relieving factors: rest Context: burn Associated symptoms: denies other symptoms Related Data Home Medications Medication Instructions Recorded Confirmed Pain Medication 1 dose PO DIRECTED 11/10/17 11/10/17 metformin 1,000 mg PO BID 11/10/17 07/12/19 naloxone 1 dose INTRANASAL DIRECTED 11/10/17 03/09/18 olanzapine 10 mg PO BID 11/10/17 08/21/18 tamsulosin 0.8 mg PO DAILY 11/10/17 07/12/19 metoprolol tartrate 50 mg PO BID 06/17/19 07/12/19 hydroxyzine HCl 25 mg PO Q8H PRN 07/12/19 07/12/19 Previous Rx's Medication Instructions Recorded alprazolam [Xanax] 1 mg PO BID PRN #14 tab 11/11/17 aspirin 325 mg PO DAILY #90 tab 11/11/17 nitroglycerin [Nitrostat] 0.4 mg SUBLINGUAL [id number] PRN #1 11/11/17 tab lidocaine [Lidoderm] 2 patch TOP DAILY #30 each 04/15/19 doxycycline hyclate 100 mg PO BID #20 tab 11/14/19 Allergies Allergy/AdvReac Type Severity Reaction Status Date / Time baclofen [BACLOFEN] Allergy Intermediate REACTS TO Verified 07/12/19 15:47 HIS METFORMIN ketorolac [From TORADOL] Allergy Intermediate HIVES Verified 07/12/19 15:47 Review of Systems Constitutional Constitutional: Denies chills, Denies fatigue, Denies fever(s), Denies frequent falls, Denies lethargy and Denies weakness Eyes Eyes: Denies change in vision, Denies eye discharge, Denies irritation and Denies loss of vision ENT Ears, Nose, Mouth, and Throat: Denies change in voice, Denies dizziness, Denies neck pain, Denies sore throat and Denies throat swelling Cardiovascular Cardiovascular: Denies chest pain, Denies irregular heart rhythm, Denies lightheadedness, Denies palpitations, Denies dyspnea, Denies dyspnea on exertion and Denies orthopnea Respiratory Respiratory: Denies cough, Denies dyspnea, Denies dyspnea on exertion and Denies wheezing Gastrointestinal Gastrointestinal: Denies abdominal pain, Denies change in bowel habits, Denies diarrhea, Denies nausea and Denies vomiting Musculoskeletal Musculoskeletal: Denies neck pain and Denies numbness Integumentary/Breasts Skin/Breast: Denies pruritus, Denies erythema, Denies rash and Reports wounds Neurologic Neurologic: Denies behavioral changes, Denies confusion, Denies dizziness, Denies frequent falls, Denies loss of vision, Denies numbness and Denies weakness Psychiatric Psychiatric: Denies anxiety, Denies behavioral changes, Denies confusion, Denies depression, Denies homicidal ideation and Denies suicidal ideation Endocrine Endocrine: Denies fatigue, Denies flushing and Denies palpitations Hematologic/Lymphatic Hematologic/Lymphatic: Denies easy bruising Allergic/Immunologic Allergic/Immunologic: Denies urticaria, Denies throat swelling and Denies wheezing Patient History Medical History Back pain (Acute) Heroin abuse (Acute) Heroin addiction (Acute) Surgical History History of fusion of cervical spine (Resolved) History of lumbar fusion (Chronic) Social History household members: spouse Smoking Status: Former smoker alcohol intake: former Smoking Status: Former smoker alcohol intake frequency: 0-2 drinks per day Substance Use Type: former substance user, heroin and methamphetamine Exam Narrative Exam Narrative: GENERAL: [64] year old patient appears older than stated age. A bit disheveled and unkempt, but at his baseline GCS 15 HEAD: Atraumatic. Normocephalic. EYES: Pupils equal round and reactive. Extraocular motions intact. No scleral icterus. No injection or drainage. ENT: Nose without bleeding, purulent drainage. Throat without erythema, tonsillar hypertrophy or exudate. Airway patent. NECK: Trachea midline. Non tender CARDIOVASCULAR: Regular rate and rhythm without murmurs, gallops, or rubs. RESPIRATORY: Clear to auscultation. Breath sounds equal bilaterally. No wheezes, rales, or rhonchi. GASTROINTESTINAL: Abdomen soft, non-tender, nondistended. EXTREMITIES: No edema or joint tenderness. BACK: Nontender without deformity or crepitance. No flank tenderness. NEURO: AOx3. SKIN: Widespread excoriations, likely from picking at his skin, perhaps a consequence of his methamphetamine use. Superficial partial-thickness burn on dorsum of hand with some mild surrounding erythema. Blister overylying already u nroofed, by patient. Full ROM. Initial Vital Signs Initial Vital Signs: Vital Signs Temperature 98.6 F 11/14/19 20:05 Pulse Rate 108 H 11/14/19 20:05 Respiratory Rate 18 11/14/19 20:05 Blood Pressure 127/76 11/14/19 20:05 Pulse Oximetry 98 11/14/19 20:05 Course Orders Ordered: ED Orders 11/14/19 20:04 XR hand RT min 3V Stat Discontinued Medications Bacitracin (Bacitracin) 1 applic TOP NOW ONE Stop: 11/14/19 20:18 Last Admin: 11/14/19 20:20 Dose: 1 applic Documented by: ALBERT Diphtheria/Tetanus/Acell Pertussis (Adacel) 0.5 ml IM .ONCE ONE Stop: 11/14/19 20:05 Last Admin: 11/14/19 20:20 Dose: 0.5 ml Documented by: ALBERT Doxycycline Hyclate (Vibramycin) 100 mg PO NOW ONE Stop: 11/14/19 20:05 Last Admin: 11/14/19 20:20 Dose: 100 mg Documented by: ALBERT Vital Signs Vital signs: Vital Signs - 8 hr 11/14/19 20:05 Temperature 98.6 F Pulse Rate 108 H Respiratory Rate 18 Blood Pressure 127/76 Pulse Oximetry 98 Discharge Plan Departure Patient Disposition: Home Clinical Impression: Burn of hand, right, second degree Qualifiers: Encounter type: initial encounter Burn of hand location: dorsum Qualified Code(s): T23.261A - Burn of second degree of back of right hand, initial encounter Cellulitis Qualifiers: Site of cellulitis: extremity Site of cellulitis of extremity: upper extremity Laterality: right Qualified Code(s): L03.113 - Cellulitis of right upper limb Discharge Date/Time: 11/14/19 21:11 Instructions: DI for Wound Infection Activity Restrictions/Additional Instructions: *You have been diagnosed with [burn of right hand with some overlying cellulitis.] *What to do: *Take medications as directed: sent to [facility] *Follow up with your primary care provider in 2-3 days, call for an appointment. Let them know you were seen in the Emergency Department and that we ask that you be seen in follow up. You may need follow-up with wound care, I have given you their contact information. It is most appropriate to start with your primary care provider and they may choose to refer you *Return to ER if you should have any new, worsening or concerning symptoms Prescriptions: New doxycycline hyclate 100 mg tablet 100 mg PO BID Qty: 20 RF: 0 No Action metformin 1,000 mg tablet 1,000 mg PO BID RF: 0 naloxone 4 mg/actuation spray,non-aerosol 1 dose Intranasal DIRECTED RF: 0 tamsulosin 0.4 mg capsule,extended release 24hr 0.8 mg PO DAILY RF: 0 olanzapine 10 mg tablet 10 mg PO BID RF: 0 Pain Medication 1 dose PO DIRECTED RF: 0 aspirin 325 mg Tablet,Delayed Release (Dr/Ec) 325 mg PO DAILY Qty: 90 RF: 0 nitroglycerin [Nitrostat] 0.4 mg Tablet, Sublingual 0.4 mg Sublingual [id number] PRN (Reason: Chest Pain) Qty: 1 RF: 0 alprazolam [Xanax] 1 mg tablet 1 mg PO BID PRN (Reason: anxiety) Qty: 14 RF: 0 hydroxyzine HCl 25 mg tablet 25 mg PO Q8H PRN (Reason: Itching) RF: 0 lidocaine [Lidoderm] 5 % adhesive patch,medicated 2 patch TOP DAILY Qty: 30 RF: 0 metoprolol tartrate 50 mg tablet 50 mg PO BID RF: 0 Referrals: Jacky Rios MD [Primary Care Provider] -
--- NOTE | 2019-11-14 20:04 | DI.RAD.S_ITS ---
PROCEDURE: XR HAND RT MIN 3V INDICATIONS: skin infection, deep, overlying 3rd MCP TECHNIQUE: 3 views of the hand(s) acquired. COMPARISON: [facility], , HAND 3V RIGHT, 05/24/2016, 17:28. FINDINGS: Bones: No fractures or dislocations. Carpal bones are normally aligned. No suspicious bony lesions. Soft tissues: Soft tissue swelling; no subcutaneous gas in the dorsum of the hand. No suspicious soft tissue calcifications. IMPRESSION: 1. No acute osseous abnormalities. 2. Soft tissue swelling. Dictated by: Areli Morris M.D. on 11/14/2019 at 20:29 Approved by: Areli Morris M.D. on 11/14/2019 at 20:36
[2019-11-14 20:05] VITALS: BP 127/76; PULSE 108; RESP 18; TEMP 37; O2SAT 98; BMI 27.1
[2019-11-14] MEDS: TET,DIPH,PERTUSS(ACELL),VAC/PF 0.5 ML SYRINGE IM (20:20)
[2019-11-14] MEDS: BACITRACIN OINT 0.9 GM PCKT 1 APPLIC TOP (20:20)
[2019-11-14] MEDS: DOXYCYCLINE HYCLATE 100 MG TABLET PO (20:20)
== END 2019-11-14 21:11 | disposition home or self-care (01) ==
PROVIDERS: Emergency Provider Emergency Medicine; PCP Family Medicine
DX: T23.261A Burn of second degree of back of right hand, initial encounter (principal); L03.113 Cellulitis of right upper limb; X19.XXXA Contact with other heat and hot substances, initial encounter; Z23 Encounter for immunization
CPT/HCPCS: 73130; 90471; 99283; 90715

== ENCOUNTER 2020-05-30 16:32 | Emergency (ER) | payer MEDICAID, SELFPAY ==
[2017-11-10 08:47] VITALS: BMI 22.8
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
[2020-05-30 16:41] VITALS: BP 139/94; PULSE 115; RESP 22; TEMP 36.8; O2SAT 100
[2020-05-30 17:10] VITALS: PULSE 101; O2SAT 100
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
[2020-05-30 18:13] VITALS: BP 137/89; PULSE 95; RESP 16; O2SAT 100
[2020-05-30] MEDS: ACETAMINOPHEN 325 MG TABLET 650 MG PO (18:35)
[2020-05-30] MEDS: CYCLOBENZAPRINE 5 MG TABLET PO (18:35)
[2020-05-30] MEDS: ONDANSETRON 4 MG ODT SL (18:35)
== END 2020-05-30 18:47 | disposition home or self-care (01) ==
PROVIDERS: Emergency Provider Emergency Medicine; PCP Family Medicine
DX: S09.90XA Unspecified injury of head, initial encounter (principal); R11.0 Nausea; M54.5 Low back pain; R51.9 Headache, unspecified; W22.01XA Walked into wall, initial encounter
CPT/HCPCS: 70450; 72125; 99284

== ENCOUNTER 2020-08-17 03:16 | Emergency (ER) | payer MEDICAID, SELFPAY ==
[2017-11-10 08:47] VITALS: BMI 22.8
--- NOTE | 2020-08-17 03:19 | ED.GENADULT ---
HPI - General Adult General Chief complaint: Wound/Laceration Stated complaint: sores all over/says worms are in the sores Time Seen by Provider: 08/17/20 03:17 Source: patient Mode of arrival: Ambulatory Limitations: no limitations History of Present Illness HPI narrative: Patient is a 64-year-old male who according to his previous notes in the emergency department does show a history of polysubstance abuse. Who is here for evaluation of multiple skin wounds on his arms and legs and hands. He thinks that there are worms that are coming out of the areas. He states that he has been using antibiotic ointment at home. 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 worms are coming out Related Data Home Medications Medication Instructions Recorded Confirmed Pain Medication 1 dose PO DIRECTED 11/10/17 11/10/17 metformin 1,000 mg PO BID 11/10/17 07/12/19 naloxone 1 dose INTRANASAL DIRECTED 11/10/17 03/09/18 olanzapine 10 mg PO BID 11/10/17 08/21/18 tamsulosin 0.8 mg PO DAILY 11/10/17 07/12/19 metoprolol tartrate 50 mg PO BID 06/17/19 07/12/19 hydroxyzine HCl 25 mg PO Q8H PRN 07/12/19 07/12/19 Previous Rx's Medication Instructions Recorded alprazolam [Xanax] 1 mg PO BID PRN #14 tab 11/11/17 aspirin 325 mg PO DAILY #90 tab 11/11/17 nitroglycerin [Nitrostat] 0.4 mg SUBLINGUAL [id number] PRN #1 11/11/17 tab lidocaine [Lidoderm] 2 patch TOP DAILY #30 each 04/15/19 doxycycline hyclate 100 mg PO BID #20 tab 11/14/19 cyclobenzaprine 5 mg PO TID PRN #10 tab 05/30/20 ondansetron 4 mg PO Q8H PRN #10 tab 05/30/20 Allergies Allergy/AdvReac Type Severity Reaction Status Date / Time baclofen [BACLOFEN] Allergy Intermediate REACTS TO Verified 07/12/19 15:47 HIS METFORMIN ketorolac [From TORADOL] Allergy Intermediate HIVES Verified 07/12/19 15:47 Review of Systems Constitutional Constitutional: Denies fever(s) Integumentary/Breasts Skin/Breast: Reports lesions Comments: Worms coming from his wounds Hematologic/Lymphatic On Anticoagulants: No Allergic/Immunologic Allergic/Immunologic: Denies urticaria Patient History Medical History Back pain Heroin abuse Heroin addiction Surgical History History of fusion of cervical spine History of lumbar fusion Social History household members: spouse Smoking Status: Former smoker alcohol intake: former Smoking Status: Former smoker alcohol intake frequency: 0-2 drinks per day Substance Use Type: former substance user, heroin and methamphetamine Exam Initial Vital Signs Initial Vital Signs: Vital Signs Temperature 98.4 F 08/17/20 03:25 Pulse Rate 107 H 08/17/20 03:25 Respiratory Rate 17 08/17/20 03:25 Blood Pressure 172/92 H 08/17/20 03:25 Pulse Oximetry 100 08/17/20 03:25 Const General: cooperative Skin Other: Patient does have multiple wounds on bilateral upper arms and on his hands. He also has a wound on his forehead and also has a wound on his left anterior tibia. All of them are in various stages of healing with some scabs over the areas. None of them are draining and appearing material. There are no surrounding erythema at any of the wounds. There are no worms noted Course Vital Signs Vital signs: Vital Signs - 8 hr 08/17/20 03:25 Temperature 98.4 F Pulse Rate 107 H Respiratory Rate 17 Blood Pressure 172/92 H Pulse Oximetry 100 Medical Decision Making [facility] Narrative Medical decision making narrative: He does have multiple wounds on bilateral upper extremities and on his lower extremities and also on his forehead. None of the wounds appear to be infected. There were no worms or other parasites noted. No indication for oral antibiotics today. We did discuss the use of topical antibiotics. They were also given phone number for the health resource program teacher for them to establish a primary provider. They were given return precautions. They expressed understanding and agreement. Discharge Plan Departure Patient Disposition: Home Clinical Impression: Multiple wounds of skin Instructions: Skin Wound Activity Restrictions/Additional Instructions: None of the wounds located on your arms or hands or leg today appear to be infected. You can continue to use topical antibiotic ointment such as Neosporin or bacitracin. I recommend that you avoid picking at any of these wounds that is of will delay they are healing and can potentially cause infections. Use the phone number that you were given to make contact with a primary provider. Prescriptions: No Action metformin 1,000 mg tablet 1,000 mg PO BID RF: 0 naloxone 4 mg/actuation spray,non-aerosol 1 dose Intranasal DIRECTED RF: 0 tamsulosin 0.4 mg capsule,extended release 24hr 0.8 mg PO DAILY RF: 0 olanzapine 10 mg tablet 10 mg PO BID RF: 0 Pain Medication 1 dose PO DIRECTED RF: 0 aspirin 325 mg Tablet,Delayed Release (Dr/Ec) 325 mg PO DAILY Qty: 90 RF: 0 nitroglycerin [Nitrostat] 0.4 mg Tablet, Sublingual 0.4 mg Sublingual [id number] PRN (Reason: Chest Pain) Qty: 1 RF: 0 alprazolam [Xanax] 1 mg tablet 1 mg PO BID PRN (Reason: anxiety) Qty: 14 RF: 0 hydroxyzine HCl 25 mg tablet 25 mg PO Q8H PRN (Reason: Itching) RF: 0 doxycycline hyclate 100 mg tablet 100 mg PO BID Qty: 20 RF: 0 ondansetron 4 mg tablet,disintegrating 4 mg PO Q8H PRN (Reason: nausea and vomiting) Qty: 10 RF: 0 cyclobenzaprine 5 mg tablet 5 mg PO TID PRN (Reason: muscle spasm) Qty: 10 RF: 0 lidocaine [Lidoderm] 5 % adhesive patch,medicated 2 patch TOP DAILY Qty: 30 RF: 0 metoprolol tartrate 50 mg tablet 50 mg PO BID RF: 0 Referrals: Jacky Rios MD [Primary Care Provider] -
[2020-08-17 03:25] VITALS: BP 172/92; PULSE 107; RESP 17; TEMP 36.9; O2SAT 100; BMI 25.7
== END 2020-08-17 03:38 | disposition home or self-care (01) ==
PROVIDERS: Emergency Provider Emergency Medicine; PCP Family Medicine
DX: S00.81XA Abrasion of other part of head, initial encounter (principal); S40.812A Abrasion of left upper arm, initial encounter; S40.811A Abrasion of right upper arm, initial encounter; S80.812A Abrasion, left lower leg, initial encounter
CPT/HCPCS: 99281; 99282

== ENCOUNTER 2020-10-17 23:28 | Emergency (ER) | payer MEDICAID, SELFPAY ==
[2017-11-10 08:47] VITALS: BMI 22.8
[2020-10-17 23:30] VITALS: BP 156/106; PULSE 108; RESP 22; TEMP 36.4; O2SAT 100
--- NOTE | 2020-10-17 23:53 | DI.CT.S_ITS ---
PROCEDURE: CT HEAD/BRAIN WO CON INDICATIONS: Trauma/pain TECHNIQUE: Noncontrast 4.5 mm thick angled axial sections acquired from the foramen magnum to the vertex, with coronal and sagittal reformats. For radiation dose reduction, the following was used: automated exposure control, adjustment of mA and/or kV according to patient size. COMPARISON: [facility], CT, CT HEAD/BRAIN WO CON, 05/30/2020, 16:45. FINDINGS: Image quality: Excellent. CSF spaces: Basal cisterns are patent. No extra-axial fluid collections. Ventricles are normal in size and shape. Brain: No midline shift. No intracranial masses or hemorrhage. Vick-white matter interface is normal. Intracranial vertebral artery atherosclerotic calcifications. Skull and face: No acute fracture. Prior left nasal bone fracture, (3/6), unchanged. Undulation of the right lateral orbital wall which appears similar to 05/30/2020. No aggressive appearing lesions. Sinuses: Visualized sinuses and mastoids are clear. IMPRESSION: No acute intracranial abnormality. Suspect prior nasal bone and possible right lateral orbital wall fractures. No significant discrepancy with the overnight preliminary interpretation. Dictated by: Gary Doherty M.D. on 10/18/2020 at 8:11 Approved by: Gary Doherty M.D. on 10/18/2020 at 8:17
--- NOTE | 2020-10-17 23:53 | DI.CT.S_ITS ---
PROCEDURE: CT CERVICAL SPINE WO CON INDICATIONS: Trauma/pain TECHNIQUE: Noncontrast 3 mm thick sections acquired from the skull base to the T4 level. Sagittal and coronal reformats were then constructed. For radiation dose reduction, the following was used: automated exposure control, adjustment of mA and/or kV according to patient size. COMPARISON: [facility], CT, CT CERVICAL SPINE WO CON, 05/30/2020, 16:45. FINDINGS: Image quality: Excellent. Bones: C5-C7 ACDF and posterior fixation at C5 and C7. No hardware fracture. No fractures or dislocations. Visualized superior ribs are intact. Moderate degenerative change in the cervical spine most pronounced at C3-C4 and C4-C5. Multilevel neural foraminal stenosis. Left C7 screw is in close proximity to the neural foramen, unchanged. Soft tissues: Prevertebral soft tissues are normal in thickness. No paravertebral hematomas. No apical pneumothoraces. IMPRESSION: No acute osseous abnormality. Stable fixation hardware. Dictated by: Gary Doherty M.D. on 10/18/2020 at 8:43 Approved by: Gary Doherty M.D. on 10/18/2020 at 8:49
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
[2020-10-18] MEDS: HYDROCODONE/ACET 5/325 TABLET 1 TAB PO (00:04)
[2020-10-18 01:35] VITALS: BP 140/80; PULSE 92; RESP 20; O2SAT 97
== END 2020-10-18 01:40 | disposition home or self-care (01) ==
PROVIDERS: Emergency Provider Emergency Medicine; PCP Family Medicine
DX: S02.2XXA Fracture of nasal bones, initial encounter for closed fracture (principal); S16.1XXA Strain of muscle, fascia and tendon at neck level, initial encounter; Y09 Assault by unspecified means
CPT/HCPCS: 70450; 72125; 99283; 99284

== ENCOUNTER 2020-12-02 22:10 | Emergency (ER) | payer MEDICAID, SELFPAY ==
[2017-11-10 08:47] VITALS: BMI 22.8
[2020-12-02 22:21] VITALS: BP 172/108; PULSE 84; RESP 17; TEMP 36.8; O2SAT 100; BMI 27.3
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
--- NOTE | 2020-12-02 22:35 | ED.SKABFB ---
HPI - Skin/Abscess/Foreign Bdy General Chief complaint: Skin/Abscess/Foreign Body Stated complaint: hand pain Time Seen by Provider: 12/02/20 22:21 Source: patient Mode of arrival: Ambulatory Limitations: no limitations History of Present Illness HPI narrative: Patient is a 65-year-old male here for evaluation of pain to the back of his left hand and also concerned about bugs crawling out of his skin. Related Data Home Medications Medication Instructions Recorded Confirmed Pain Medication 1 dose PO DIRECTED 11/10/17 11/10/17 metformin 1,000 mg tablet 1,000 mg PO BID 11/10/17 07/12/19 naloxone 4 mg/actuation nasal spray 1 dose INTRANASAL DIRECTED 11/10/17 03/09/18 olanzapine 10 mg tablet 10 mg PO BID 11/10/17 08/21/18 tamsulosin 0.4 mg capsule 0.8 mg PO DAILY 11/10/17 07/12/19 metoprolol tartrate 50 mg tablet 50 mg PO BID 06/17/19 07/12/19 hydroxyzine HCl 25 mg tablet 25 mg PO Q8H PRN 07/12/19 07/12/19 Previous Rx's Medication Instructions Recorded alprazolam 1 mg tablet (Xanax) 1 mg PO BID PRN #14 tab 11/11/17 aspirin 325 mg tablet,delayed 325 mg PO DAILY #90 tab 11/11/17 release nitroglycerin 0.4 mg sublingual 0.4 mg SUBLINGUAL [id number] PRN #1 11/11/17 tablet (Nitrostat) tab lidocaine 5 % topical patch 2 patch TOP DAILY #30 each 04/15/19 (Lidoderm) doxycycline hyclate 100 mg tablet 100 mg PO BID #20 tab 11/14/19 cyclobenzaprine 5 mg tablet 5 mg PO TID PRN #10 tab 05/30/20 ondansetron 4 mg disintegrating 4 mg PO Q8H PRN #10 tab 05/30/20 tablet cephalexin 500 mg capsule 500 mg PO QID 5 Days #20 cap 12/02/20 Allergies Allergy/AdvReac Type Severity Reaction Status Date / Time baclofen [BACLOFEN] Allergy Intermediate REACTS TO Verified 07/12/19 15:47 HIS METFORMIN ketorolac [From TORADOL] Allergy Intermediate HIVES Verified 07/12/19 15:47 Review of Systems Constitutional Constitutional: Denies fever(s) Musculoskeletal Comments: Pain to the back of the left hand Integumentary/Breasts Comments: Multiple skin lesions and bugs crawling out of his skin Hematologic/Lymphatic On Anticoagulants: No Patient History Medical History Back pain Heroin abuse Heroin addiction Surgical History History of fusion of cervical spine History of lumbar fusion Social History household members: spouse Smoking Status: Former smoker alcohol intake: former Smoking Status: Former smoker alcohol intake frequency: 0-2 drinks per day Substance Use Type: heroin and methamphetamine Exam Initial Vital Signs Initial Vital Signs: Vital Signs Temperature 98.2 F 12/02/20 22:21 Pulse Rate 84 12/02/20 22:21 Respiratory Rate 17 12/02/20 22:21 Blood Pressure 172/108 H 12/02/20 22:21 Pulse Oximetry 100 12/02/20 22:21 Const General: disheveled Resp Effort & Inspection: normal respiratory effort Cardio Rate: regular rate Skin Other: Patient has multiple lesions around his body in various stages of healing. There are no bugs crawling out of his skin. He does have a lesion on the back of his left hand that is draining and does have some surrounding redness. No underlying abscess. Extrem Other: Other than the changes in the skin over the extremities, his arms and legs are unremarkable Course Orders Ordered: Discontinued Medications Cephalexin HCl (Cephalexin 250 Mg Capsule) 500 mg PO NOW ONE Stop: 12/02/20 22:37 Last Admin: 12/02/20 22:49 Dose: 500 mg Documented by: HASMUKH Vital Signs Vital signs: Vital Signs - 8 hr 12/02/20 22:21 12/02/20 22:55 Temperature 98.2 F Pulse Rate 84 88 Respiratory Rate 17 16 Blood Pressure 172/108 H 155/89 H Pulse Oximetry 100 99 MDM - Skin/Abscess/Foreign Bdy MDM Narrative Medical decision making narrative: The wounds in the back of his left hand do have some surrounding erythema so will start the patient on antibiotics. There is no signs of any abscess. He has multiple wounds throughout his body in various stages of healing. There are no bugs coming from these areas. I suspect that this sensation is secondary to his heroin use. No further workup needed in the emergency department. Discharge Plan Departure Patient Disposition: Home Clinical Impression: Cellulitis Instructions: DI for Cellulitis -- Adult Activity Restrictions/Additional Instructions: Take the antibiotics as directed. Contact your primary provider for follow-up. Prescriptions: New cephalexin 500 mg capsule 500 mg PO QID 5 Days Qty: 20 RF: 0 No Action metformin 1,000 mg tablet 1,000 mg PO BID RF: 0 naloxone 4 mg/actuation spray,non-aerosol 1 dose Intranasal DIRECTED RF: 0 tamsulosin 0.4 mg capsule,extended release 24hr 0.8 mg PO DAILY RF: 0 olanzapine 10 mg tablet 10 mg PO BID RF: 0 Pain Medication 1 dose PO DIRECTED RF: 0 aspirin 325 mg Tablet,Delayed Release (Dr/Ec) 325 mg PO DAILY Qty: 90 RF: 0 nitroglycerin [Nitrostat] 0.4 mg Tablet, Sublingual 0.4 mg Sublingual [id number] PRN (Reason: Chest Pain) Qty: 1 RF: 0 alprazolam [Xanax] 1 mg tablet 1 mg PO BID PRN (Reason: anxiety) Qty: 14 RF: 0 hydroxyzine HCl 25 mg tablet 25 mg PO Q8H PRN (Reason: Itching) RF: 0 doxycycline hyclate 100 mg tablet 100 mg PO BID Qty: 20 RF: 0 ondansetron 4 mg tablet,disintegrating 4 mg PO Q8H PRN (Reason: nausea and vomiting) Qty: 10 RF: 0 cyclobenzaprine 5 mg tablet 5 mg PO TID PRN (Reason: muscle spasm) Qty: 10 RF: 0 lidocaine [Lidoderm] 5 % adhesive patch,medicated 2 patch TOP DAILY Qty: 30 RF: 0 metoprolol tartrate 50 mg tablet 50 mg PO BID RF: 0 Referrals: Jacky Rios MD [Primary Care Provider] -
[2020-12-02] MEDS: cephALEXin 250 MG CAPSULE 500 MG PO (22:49)
[2020-12-02 22:55] VITALS: BP 155/89; PULSE 88; RESP 16; O2SAT 99
== END 2020-12-02 22:56 | disposition home or self-care (01) ==
PROVIDERS: Emergency Provider Emergency Medicine; PCP Family Medicine
DX: L03.114 Cellulitis of left upper limb (principal); F11.10 Opioid abuse, uncomplicated; F15.10 Other stimulant abuse, uncomplicated
CPT/HCPCS: 99283

== ENCOUNTER 2021-11-19 19:04 | Emergency (ER) | payer MEDICAID, SELFPAY ==
[2017-11-10 08:47] VITALS: BMI 22.8
[2021-11-19 19:08] VITALS: BP 142/81; PULSE 111; RESP 18; TEMP 36.9; O2SAT 100; BMI 27.4
== END 2021-11-19 21:05 | disposition left against medical advice (07) ==
PROVIDERS: Emergency Provider Emergency Medicine; PCP Family Medicine
CPT/HCPCS: 99281

== ENCOUNTER 2021-11-19 22:56 | Emergency (ER) | payer MEDICAID, SELFPAY ==
[2017-11-10 08:47] VITALS: BMI 22.8
--- NOTE | 2021-11-19 23:47 | PC.NURSE ---
at 2315 unable to locate him in ED waiting room.
--- NOTE | 2021-11-20 00:12 | PC.NURSE ---
0000 called for patient not in lobby
== END 2021-11-19 23:55 | disposition left against medical advice (07) ==
PROVIDERS: Emergency Provider Emergency Medicine; PCP Family Medicine

== ENCOUNTER 2021-11-20 01:18 | Emergency (ER) | payer MEDICAID, SELFPAY ==
[2017-11-10 08:47] VITALS: BMI 22.8
== END 2021-11-20 02:30 | disposition left against medical advice (07) ==
PROVIDERS: Emergency Provider Emergency Medicine; PCP Family Medicine

== ENCOUNTER 2021-11-20 04:40 | Emergency (ER) | payer OTHER, MEDICAID, SELFPAY ==
[2017-11-10 08:47] VITALS: BMI 22.8
[2021-11-20 04:50] VITALS: BP 148/101; PULSE 84; RESP 16; TEMP 36.1; O2SAT 100
--- NOTE | 2021-11-20 05:01 | DI.CT.S_ITS ---
PROCEDURE: CT CERVICAL SPINE WO CON INDICATIONS: neck pain, possible neck injury TECHNIQUE: Noncontrast 3 mm thick sections acquired from the skull base to the T4 level. Sagittal and coronal reformats were then constructed. For radiation dose reduction, the following was used: automated exposure control, adjustment of mA and/or kV according to patient size. COMPARISON: [facility], CT, CT CERVICAL SPINE WO CON, 10/18/2020, 0:08. [facility], CT, CT CERVICAL SPINE WO CON, 05/30/2020, 16:45. FINDINGS: Image quality: Excellent. Bones: Status post C5-C7 ACDF and posterior fusion. No acute fractures or dislocations. Small chronic avulsion fracture involving the tip of the right coronoid process of the mandible is stable compared to prior exams. Visualized superior ribs are intact. Spine degenerative disc disease and facet arthropathy. Soft tissues: Prevertebral soft tissues are normal in thickness. No paravertebral hematomas. No apical pneumothoraces. IMPRESSION: 1. Stable postsurgical changes. 2. No acute fracture. No acute osseous lesion. If symptoms and/or clinical suspicion for pathology persists, evaluation with MRI should be considered for further assessment. Dictated by: Herlinda Farley MD, PhD on 11/20/2021 at 7:26 Approved by: Herlinda Farley MD, PhD on 11/20/2021 at 7:32
--- NOTE | 2021-11-20 05:01 | DI.CT.S_ITS ---
PROCEDURE: CT HEAD/BRAIN WO CON INDICATIONS: possible head injury TECHNIQUE: Noncontrast 4.5 mm thick angled axial sections acquired from the foramen magnum to the vertex, with coronal and sagittal reformats. For radiation dose reduction, the following was used: automated exposure control, adjustment of mA and/or kV according to patient size. COMPARISON: [facility], CT, CT HEAD/BRAIN WO CON, 10/18/2020, 0:08. [facility], CT, CT HEAD/BRAIN WO CON, 05/30/2020, 16:45. FINDINGS: Image quality: Excellent. CSF spaces: Basal cisterns are patent. No extra-axial fluid collections. The ventricles are symmetric in size and shape. Brain: No intracranial bleeds or masses. There is cerebral volume loss for age, with resultant ventricular and sulcal prominence. There are periventricular and deep white matter chronic small vessel ischemic changes. There is intracranial internal carotid artery and vertebral artery atherosclerosis. Skull and face: Calvarium and visualized facial bones appear intact, without suspicious lesions. Sinuses: Visualized sinuses and mastoids are clear. IMPRESSION: No acute intracranial disease process. Dictated by: Herlinda Farley MD, PhD on 11/20/2021 at 7:25 Approved by: Herlinda Farley MD, PhD on 11/20/2021 at 7:26
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
== END 2021-11-20 06:27 | disposition home or self-care (01) ==
PROVIDERS: Emergency Provider Emergency Medicine; PCP Family Medicine
DX: M54.2 Cervicalgia (principal); X58.XXXA Exposure to other specified factors, initial encounter
CPT/HCPCS: 70450; 72125; 99281; 99283

== ENCOUNTER 2022-03-13 14:42 | Emergency (ER) | payer OTHER, MEDICAID, SELFPAY ==
[2017-11-10 08:47] VITALS: BMI 22.8
[2022-03-13 14:54] VITALS: BP 125/84; PULSE 129; RESP 20; TEMP 36.3; O2SAT 98; BMI 24.3
== END 2022-03-13 15:29 | disposition left against medical advice (07) ==
PROVIDERS: Emergency Provider Emergency Medicine; PCP Family Medicine
DX: M79.605 Pain in left leg (principal); M79.604 Pain in right leg
CPT/HCPCS: 99281

== ENCOUNTER 2022-03-14 23:19 | Emergency (ER) | payer OTHER, MEDICAID, SELFPAY ==
[2017-11-10 08:47] VITALS: BMI 22.8
[2022-03-14 23:43] VITALS: BP 133/99; PULSE 89; RESP 20; TEMP 36.3; O2SAT 100; BMI 25.7
--- NOTE | 2022-03-15 01:08 | DI.RAD.S_ITS ---
PROCEDURE: XR KNEE RT 3V INDICATIONS: Knee pain after trauma TECHNIQUE: 3 views of the knee were acquired. COMPARISON: None. FINDINGS: Bones: No fractures or dislocations. [id number]-lw-gopdjpxi tricompartmental osteoarthritis is seen with joint space narrowing and subchondral sclerosis. No patellar subluxation. No suspicious bony lesions. Soft tissues: Moderate suprapatellar joint effusion is seen. No suspicious soft tissue calcifications. IMPRESSION: No acute right knee fracture or dislocation. Hcne-ng-osauccxk tricompartmental osteoarthritis. Moderate joint effusion. Dictated by: Prateek Jorge M.D. on 03/15/2022 at 1:42 Approved by: Prateek Jorge M.D. on 03/15/2022 at 1:44
--- NOTE | 2022-03-15 01:08 | DI.RAD.S_ITS ---
PROCEDURE: XR KNEE LT 3V INDICATIONS: Knee pain after trauma TECHNIQUE: 3 views of the knee were acquired. COMPARISON: None. FINDINGS: Bones: No fractures or dislocations. Mild tricompartmental osteoarthritis is seen with joint space narrowing and subchondral sclerosis. No patellar subluxation. No suspicious bony lesions. Soft tissues: No significant joint effusion. No suspicious soft tissue calcifications. IMPRESSION: No left knee fracture or dislocation. No significant joint effusion. Mild tricompartmental osteoarthritis is seen. Dictated by: Prateek Jorge M.D. on 03/15/2022 at 1:45 Approved by: Prateek Jorge M.D. on 03/15/2022 at 1:46
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
--- NOTE | 2022-03-15 01:08 | DI.RAD.S_ITS ---
PROCEDURE: XR CERVICAL SPINE 2V OR 3V INDICATIONS: Anterior neck pain after trauma TECHNIQUE: 4 view(s) of the cervical spine were acquired. COMPARISON: [facility], CT, CT CERVICAL SPINE WO [facility], 11/20/2021, 5:12. FINDINGS: Bones: Are post fusion changes in lower cervical spine at C5 through C7 levels. No acute cervical spine fracture or dislocation. Grade 1 anterolisthesis at C4-5 and C3-4 levels are again seen unchanged from prior study. Degenerative endplate changes and bilateral facet hypertrophic changes are noted throughout cervical spine. No gross hardware loosening or failure. The lateral masses of C1 appear intact on the odontoid view. No suspicious bony lesions. Soft tissues: No prevertebral soft tissue swelling. IMPRESSION: No acute cervical spine fracture or dislocation. Stable post fusion changes in lower cervical spine. Degenerative disc disease throughout cervical spine with grade 1 anterolisthesis at C3-4 and C4-5 levels unchanged from prior study. No gross hardware complication. Dictated by: Prateek Jorge M.D. on 03/15/2022 at 1:46 Approved by: Prateek Jorge M.D. on 03/15/2022 at 1:48
[2022-03-15] MEDS: ACETAMINOPHEN 325 MG TABLET 650 MG PO (02:25)
== END 2022-03-15 02:40 | disposition home or self-care (01) ==
PROVIDERS: Emergency Provider Emergency Medicine; PCP Family Medicine
DX: M25.562 Pain in left knee (principal); M25.561 Pain in right knee; M54.2 Cervicalgia; W17.89XA Other fall from one level to another, initial encounter
CPT/HCPCS: 72040; 73562; 99281; 99283

== ENCOUNTER 2022-03-15 19:43 | Emergency (ER) | payer OTHER, MEDICAID, SELFPAY ==
[2017-11-10 08:47] VITALS: BMI 22.8
[2022-03-15 20:08] VITALS: BP 149/88; PULSE 79; RESP 20; TEMP 36.6; O2SAT 99; BMI 24.0
--- NOTE | 2022-03-15 21:57 | ED.PSYCH ---
HPI - Psych General Chief Complaint: Psychiatric Symptoms Stated Complaint: Panic Time Seen by Provider: 03/15/22 21:31 Source: patient Mode of arrival: Ambulatory History of Present Illness HPI Narrative: 66-year-old male who I evaluated in the emergency department last evening who returns this evening stating that he still does not have any money for food. States that he is still trying to find his . He states that he is becoming anxious because he does not have any money. He states that people were trying to keep him from getting his ?inheritance ?he denies any trauma. Has not tried anything for his symptoms. Related Data Home Medications Medication Instructions Recorded Confirmed Pain Medication 1 dose PO DIRECTED 11/10/17 11/10/17 metformin 1,000 mg tablet 1,000 mg PO BID 11/10/17 07/12/19 naloxone 4 mg/actuation nasal spray 1 dose intranasal DIRECTED 11/10/17 03/09/18 olanzapine 10 mg tablet 10 mg PO BID 11/10/17 08/21/18 tamsulosin 0.4 mg capsule 0.8 mg PO DAILY 11/10/17 07/12/19 metoprolol tartrate 50 mg tablet 50 mg PO BID 06/17/19 07/12/19 hydroxyzine HCl 25 mg tablet 25 mg PO Q8H PRN Itching 07/12/19 07/12/19 Previous Rx's Medication Instructions Recorded alprazolam 1 mg tablet (Xanax) 1 mg PO BID PRN anxiety #14 tabs 11/11/17 aspirin 325 mg tablet,delayed 325 mg PO DAILY #90 tabs 11/11/17 release nitroglycerin 0.4 mg sublingual 0.4 mg sublingual [id number] PRN 11/11/17 tablet (Nitrostat) Chest Pain #1 tab lidocaine 5 % topical patch 2 patch topical DAILY #30 ea 04/15/19 (Lidoderm) doxycycline hyclate 100 mg tablet 100 mg PO BID #20 tabs 11/14/19 cyclobenzaprine 5 mg tablet 5 mg PO TID PRN muscle spasm #10 05/30/20 tabs ondansetron 4 mg disintegrating 4 mg PO Q8H PRN nausea and 05/30/20 tablet vomiting #10 tabs Allergies Allergy/AdvReac Type Severity Reaction Status Date / Time baclofen [BACLOFEN] Allergy Intermediate REACTS TO Verified 03/13/22 14:54 HIS METFORMIN ketorolac [From TORADOL] Allergy Intermediate HIVES Verified 03/13/22 14:54 Review of Systems Cardiovascular Comments: Denies chest pain Respiratory Comments: Denies shortness of breath Gastrointestinal Comments: Denies abdominal pain Musculoskeletal Comments: Knee pain Psychiatric Psychiatric: Reports system reviewed and no additional complaints, except as documented Patient History Medical History Back pain Heroin abuse Heroin addiction Surgical History History of fusion of cervical spine History of lumbar fusion Social History household members: spouse Smoking Status: Current every day smoker alcohol intake: former Smoking Status: Current every day smoker tobacco type: cigarettes alcohol intake frequency: 0-2 drinks per day Substance Use Type: marijuana, heroin and methamphetamine Exam Initial Vital Signs Initial Vital Signs: Vital Signs Temperature 97.8 F 03/15/22 20:08 Pulse Rate 79 03/15/22 20:08 Respiratory Rate 20 03/15/22 20:08 Blood Pressure 149/88 H 03/15/22 20:08 Pulse Oximetry 99 03/15/22 20:08 Oxygen Delivery Method 03/15/22 20:08 Const General: disheveled HENMT Head: normal to inspection Resp Effort & Inspection: normal respiratory effort Cardio Rate: regular rate GI Inspection: non-distended Neuro General: patient alert, patient awake and moves all extremities Speech: speech normal Gait: normal gait Extrem General: normal to inspection Psych Appearance: disheveled Speech and Movement: restless Mood: anxious mood and No irritable mood Affect: No hostile and blunted Attitude: cooperative Course Orders Ordered: ED Orders 03/15/22 20:12 [place] [facility] [place] Assistant To President Stat Vital Signs Vital signs: Vital Signs - 8 hr 03/15/22 20:08 03/15/22 22:35 Temperature 97.8 F Pulse Rate 79 70 Respiratory Rate 20 16 Blood Pressure 149/88 H 160/79 H Pulse Oximetry 99 96 Oxygen Delivery Method Room Air Room Air MDM - Psych MDM Narrative Medical decision making narrative: Patient was given food. Offered to let him sleep in the emergency department this evening and talk with social work tomorrow given the fact that he has been here multiple times in the past couple days. She the patient was agreeable to this. After a period of time he stated that he was feeling better. Was no longer anxious. Stated that he wanted to be discharged. No indication to detain him against his will. Will discharge patient. Discharge Plan Departure Patient Disposition: Home Clinical Impression: Anxiety Activity Restrictions/Additional Instructions: I recommend you take all of your medications as directed. Return to the emergency department for any new or worsening symptoms. Prescriptions: No Action metformin 1,000 mg tablet 1,000 mg PO BID naloxone 4 mg/actuation spray,non-aerosol 1 dose Intranasal DIRECTED Label Comments: instill 1 spray in 1 NOSTRIL if needed for opioid overdose may re...(REFER TO PRESCRIPTION NOTES). tamsulosin 0.4 mg capsule,extended release 24hr 0.8 mg PO DAILY olanzapine 10 mg tablet 10 mg PO BID Label Comments: take 1 tablet by mouth twice a day Pain Medication 1 dose PO DIRECTED Label Comments: patient states he gets pain medication (along with Alprazolam) from mental health pharmacy in [facility] but ran out of both. does not recall name of med aspirin 325 mg Tablet,Delayed Release (Dr/Ec) 325 mg PO DAILY Qty: 90 0RF nitroglycerin [Nitrostat] 0.4 mg Tablet, Sublingual 0.4 mg Sublingual [id number] PRN (Reason: Chest Pain) Qty: 1 0RF alprazolam [Xanax] 1 mg tablet 1 mg PO BID PRN (Reason: anxiety) Qty: 14 0RF hydroxyzine HCl 25 mg tablet 25 mg PO Q8H PRN (Reason: Itching) Label Comments: take 1 tablet by mouth every 8 hours if needed for itching FOR UP TO 10 DAYS doxycycline hyclate 100 mg tablet 100 mg PO BID Qty: 20 0RF ondansetron 4 mg tablet,disintegrating 4 mg PO Q8H PRN (Reason: nausea and vomiting) Qty: 10 0RF cyclobenzaprine 5 mg tablet 5 mg PO TID PRN (Reason: muscle spasm) Qty: 10 0RF lidocaine [Lidoderm] 5 % adhesive patch,medicated 2 patch TOP DAILY Qty: 30 0RF Rx Instructions: leave on most painful area for up to 12 hrs daily metoprolol tartrate 50 mg tablet 50 mg PO BID Label Comments: take 1 tablet by mouth twice a day Referrals: Jacky Rios MD [Primary Care Provider] - Visit Report Forms: Patient Portal/API
--- NOTE | 2022-03-15 22:31 | PC.NURSE ---
pt states he is looking for his , he is hungry and he is confused. he really needs something to eat and a place to stay the night. Assessment done by provider. patient given food and asked if he wanted anything else. Patient refused more food but did want to leave and find a motel for the night instead of staying here. provider notified and patient discharged.
[2022-03-15 22:35] VITALS: BP 160/79; PULSE 70; RESP 16; O2SAT 96
== END 2022-03-15 22:36 | disposition home or self-care (01) ==
PROVIDERS: Emergency Provider Emergency Medicine; PCP Family Medicine
DX: F41.9 Anxiety disorder, unspecified (principal)
CPT/HCPCS: 99281

== ENCOUNTER 2022-03-16 05:28 | Emergency (ER) | payer OTHER, MEDICAID, SELFPAY ==
[2017-11-10 08:47] VITALS: BMI 22.8
[2022-03-16 05:48] VITALS: BP 126/76; PULSE 62; RESP 16; TEMP 35.5; O2SAT 95; BMI 24.0
--- NOTE | 2022-03-16 05:50 | PC.NURSE ---
see triage note
--- NOTE | 2022-03-16 06:05 | ED_ITS ---
HPI - Extremity Problem General Chief complaint: Extremity Problem,Nontraumatic Stated complaint: both legs in pain Time Seen by Provider: 03/16/22 06:05 Source: patient Mode of arrival: Ambulatory Limitations: no limitations History of Present Illness HPI Narrative: Jacobo is a 66-year-old male who I have evaluated 3 times in the past 2 shifts. The last visit was at the beginning of this current shift. He returns to the emergency department this morning stating that his knees are hurting. He states the cold is hurting his knees. He is having problems specifically with inclines like going up and down hill. He is not tried anything for the discomfort. I asked him what he is done since he left the emergency department last evening. He states he has been walking around ?cleaning things up? he states that since he left the emergency department he has found his . He was happy about this. He also states that he found out that his father's insurance checks which he was waiting for have cleared and he should be receiving money in order to buy food and also a place to stay. He reports no specific trauma. He states that since he was here last night he has not slept very much. He denies doing drugs. He is not suicidal. Not homicidal. He states that he currently is not hungry. He is here because he thinks maybe a muscle relaxer will help his knees. Related Data Home Medications Medication Instructions Recorded Confirmed Pain Medication 1 dose PO DIRECTED 11/10/17 11/10/17 metformin 1,000 mg tablet 1,000 mg PO BID 11/10/17 07/12/19 naloxone 4 mg/actuation nasal spray 1 dose intranasal DIRECTED 11/10/17 03/09/18 olanzapine 10 mg tablet 10 mg PO BID 11/10/17 08/21/18 tamsulosin 0.4 mg capsule 0.8 mg PO DAILY 11/10/17 07/12/19 metoprolol tartrate 50 mg tablet 50 mg PO BID 06/17/19 07/12/19 hydroxyzine HCl 25 mg tablet 25 mg PO Q8H PRN Itching 07/12/19 07/12/19 Previous Rx's Medication Instructions Recorded alprazolam 1 mg tablet (Xanax) 1 mg PO BID PRN anxiety #14 tabs 11/11/17 aspirin 325 mg tablet,delayed 325 mg PO DAILY #90 tabs 11/11/17 release nitroglycerin 0.4 mg sublingual 0.4 mg sublingual [id number] PRN 11/11/17 tablet (Nitrostat) Chest Pain #1 tab lidocaine 5 % topical patch 2 patch topical DAILY #30 ea 04/15/19 (Lidoderm) doxycycline hyclate 100 mg tablet 100 mg PO BID #20 tabs 11/14/19 cyclobenzaprine 5 mg tablet 5 mg PO TID PRN muscle spasm #10 05/30/20 tabs ondansetron 4 mg disintegrating 4 mg PO Q8H PRN nausea and 05/30/20 tablet vomiting #10 tabs Allergies Allergy/AdvReac Type Severity Reaction Status Date / Time baclofen [BACLOFEN] Allergy Intermediate REACTS TO Verified 03/13/22 14:54 HIS METFORMIN ketorolac [From TORADOL] Allergy Intermediate HIVES Verified 03/13/22 14:54 Review of Systems Constitutional Comments: Denies fever headache Cardiovascular Comments: Denies chest pain Respiratory Comments: Denies shortness of breath Gastrointestinal Comments: Denies abdominal pain Musculoskeletal Comments: Describes bilateral knee pain Neurologic Comments: No numbness or tingling in his legs Psychiatric Comments: Denies suicidal/homicidal ideation Patient History Medical History (Updated 03/16/22 @ 06:21 by Martin Mix DO) Back pain Heroin abuse Heroin addiction Surgical History History of fusion of cervical spine History of lumbar fusion Social History household members: spouse Smoking Status: Current every day smoker alcohol intake: former Smoking Status: Current every day smoker tobacco type: cigarettes alcohol intake frequency: 0-2 drinks per day Substance Use Type: marijuana, heroin and methamphetamine Exam Initial Vital Signs Initial Vital Signs: Vital Signs Temperature 96 F L 03/16/22 05:48 Pulse Rate 62 03/16/22 05:48 Respiratory Rate 16 03/16/22 05:48 Blood Pressure 126/76 03/16/22 05:48 Pulse Oximetry 95 03/16/22 05:48 Oxygen Delivery Method 03/16/22 05:48 Const General: No in distress and disheveled HENMT Head: normal to inspection and normocephalic Resp Effort & Inspection: normal respiratory effort Cardio Rate: regular rate Skin General: no rashes or lesions noted Neuro General: patient alert, patient awake and moves all extremities Extrem Other: Bilateral knees are unremarkable. Course Vital Signs Vital signs: Vital Signs - 8 hr 03/16/22 05:48 Temperature 96 F L Pulse Rate 62 Respiratory Rate 16 Blood Pressure 126/76 Pulse Oximetry 95 Oxygen Delivery Method Room Air MDM - Extremity (Nontraumatic) MDM Narrative Medical decision making narrative: I confront the patient about his multiple ED visits over the past couple days. He is much more calm now than what he was just a few hours ago. He states that he has found his which she was concerned about during his last few visits here in the ER. He states he now has a source of money because his father's insurance checks of cleared. He states he is no longer concerned about being able to buy food or long-term. He states that he has not slept very much since being discharged from the hospital last evening. He currently denies any issues with hunger being cold. I offered to allow him to sleep. The emergency department. He declined this. I have recommended that he stick around in order to talk with social work but he stated that he did not need this. Patient is alert oriented x3. He knows his name, the year, location and he knows his date. I specifically asked the patient if he needed anything else from me and he stated that he thought maybe a muscle relaxer would help his legs. I told him that I evaluated his knees with x-rays just over 24 hours ago and told him that he has arthritis in his knees. We discussed the use of Tylenol and ibuprofen. He accepted a dose of Tylenol. He asked for something stronger than this but told him that Tylenol and ibuprofen should be appropriate. I once again asked him if there is anything else I can do for him and he said no. Patient does have a history of drug abuse although he denied this today. He is obviously having significant issues is he has been here in the emergency department multiple times over the past couple days. I do believe that he has been walking around all night since being discharged from the hospital. I did inform him that if he returns to the emergency department again will most likely insists that he stay in be ?evaluated ?by our social media marketer. He expressed understanding of this. I told him that this was not a threat and that he absolutely needed to return to the emergency department if he felt like he ne eded our help but I did inform him that I was concerned about his well-being in his multiple visits in his ability to care for himself and his ability to have long-term and food. He did accept and I gave him a senior resource guide and marked pages for food bags and also housing in the local area. He expressed gratitude for this. I once again told him that I was concerned about him and that he should return to the emergency department if he changes his mind about wanting further help from our specialists in this area. He expressed understanding. Given his presentation do not feel that I have the grounds to detain him. He is not clinically intoxicated. Not clinically under the influence of illicit substances. Is alert oriented x3. Has a GCS of 15. I do feel that he has capacity to make decisions although this is somewhat of a guarded decision but based on how he presents at this visit I do not think that he meets criteria to be detained. Discharge Plan Departure Patient Disposition: Home Clinical Impression: Arthritis Instructions: DI for Arthritis Activity Restrictions/Additional Instructions: Please use the resource guide that you were given today to help with finding places her you can get food and long-term. We do have social workers available here in the emergency department that can help and if you change your mind about having them healthy you please return to the emergency department Prescriptions: No Action metformin 1,000 mg tablet 1,000 mg PO BID naloxone 4 mg/actuation spray,non-aerosol 1 dose Intranasal DIRECTED Label Comments: instill 1 spray in 1 NOSTRIL if needed for opioid overdose may re...(REFER TO PRESCRIPTION NOTES). tamsulosin 0.4 mg capsule,extended release 24hr 0.8 mg PO DAILY olanzapine 10 mg tablet 10 mg PO BID Label Comments: take 1 tablet by mouth twice a day Pain Medication 1 dose PO DIRECTED Label Comments: patient states he gets pain medication (along with Alprazolam) from mental health pharmacy in [facility] but ran out of both. does not recall name of med aspirin 325 mg Tablet,Delayed Release (Dr/Ec) 325 mg PO DAILY Qty: 90 0RF nitroglycerin [Nitrostat] 0.4 mg Tablet, Sublingual 0.4 mg Sublingual [id number] PRN (Reason: Chest Pain) Qty: 1 0RF alprazolam [Xanax] 1 mg tablet 1 mg PO BID PRN (Reason: anxiety) Qty: 14 0RF hydroxyzine HCl 25 mg tablet 25 mg PO Q8H PRN (Reason: Itching) Label Comments: take 1 tablet by mouth every 8 hours if needed for itching FOR UP TO 10 DAYS doxycycline hyclate 100 mg tablet 100 mg PO BID Qty: 20 0RF ondansetron 4 mg tablet,disintegrating 4 mg PO Q8H PRN (Reason: nausea and vomiting) Qty: 10 0RF cyclobenzaprine 5 mg tablet 5 mg PO TID PRN (Reason: muscle spasm) Qty: 10 0RF lidocaine [Lidoderm] 5 % adhesive patch,medicated 2 patch TOP DAILY Qty: 30 0RF Rx Instructions: leave on most painful area for up to 12 hrs daily metoprolol tartrate 50 mg tablet 50 mg PO BID Label Comments: take 1 tablet by mouth twice a day Referrals: Jacky Rios MD [Primary Care Provider] -
[2022-03-16] MEDS: ACETAMINOPHEN 325 MG TABLET 650 MG PO (06:13)
== END 2022-03-16 06:25 | disposition home or self-care (01) ==
PROVIDERS: Emergency Provider Emergency Medicine; PCP Family Medicine
DX: M17.9 Osteoarthritis of knee, unspecified (principal); M25.561 Pain in right knee; M25.562 Pain in left knee
CPT/HCPCS: 99281; 99283

== ENCOUNTER 2022-03-16 22:18 | Emergency (ER) | payer OTHER, MEDICAID, SELFPAY ==
[2017-11-10 08:47] VITALS: BMI 22.8
[2022-03-16 22:39] VITALS: BP 118/75; PULSE 88; RESP 16; TEMP 36.7; O2SAT 100; BMI 28.1
--- NOTE | 2022-03-16 22:50 | ED.GENADULT ---
HPI - General Adult General Chief complaint: Extremity Injury, Lower Stated complaint: Dropped off by police, Unsure of reason Time Seen by Provider: 03/16/22 22:42 Source: patient Mode of arrival: Ambulatory History of Present Illness HPI narrative: Patient is a 66-year-old male. This is his 5th emergency department visit in the past 3 nights. I have seen him multiple times over my past couple shifts. He has been here for multiple reasons to include concerns for being able to pay for food and retirement. He is also been here for knee discomfort. When I evaluated him at the end of my last shift he was given a resource guide for food bags and shelters in the local area. Each time that he has been here I have offered him the opportunity to stay in the emergency department and talk with social work. Each time that he has declined this. This evening it was reported that he was dropped off by the police. I am unsure as to who called the police sore they just found the patient. He was states that he was having cramps in his legs. This has been a presenting complaint for him in the past. Upon my evaluation the patient states that he is here because he just could not find a warm place to sleep. Related Data Home Medications Medication Instructions Recorded Confirmed Pain Medication 1 dose PO DIRECTED 11/10/17 11/10/17 metformin 1,000 mg tablet 1,000 mg PO BID 11/10/17 07/12/19 naloxone 4 mg/actuation nasal spray 1 dose intranasal DIRECTED 11/10/17 03/09/18 olanzapine 10 mg tablet 10 mg PO BID 11/10/17 08/21/18 tamsulosin 0.4 mg capsule 0.8 mg PO DAILY 11/10/17 07/12/19 metoprolol tartrate 50 mg tablet 50 mg PO BID 06/17/19 07/12/19 hydroxyzine HCl 25 mg tablet 25 mg PO Q8H PRN Itching 07/12/19 07/12/19 Previous Rx's Medication Instructions Recorded alprazolam 1 mg tablet (Xanax) 1 mg PO BID PRN anxiety #14 tabs 11/11/17 aspirin 325 mg tablet,delayed 325 mg PO DAILY #90 tabs 11/11/17 release nitroglycerin 0.4 mg sublingual 0.4 mg sublingual [id number] PRN 11/11/17 tablet (Nitrostat) Chest Pain #1 tab lidocaine 5 % topical patch 2 patch topical DAILY #30 ea 04/15/19 (Lidoderm) doxycycline hyclate 100 mg tablet 100 mg PO BID #20 tabs 11/14/19 cyclobenzaprine 5 mg tablet 5 mg PO TID PRN muscle spasm #10 05/30/20 tabs ondansetron 4 mg disintegrating 4 mg PO Q8H PRN nausea and 05/30/20 tablet vomiting #10 tabs Allergies Allergy/AdvReac Type Severity Reaction Status Date / Time baclofen [BACLOFEN] Allergy Intermediate REACTS TO Verified 03/13/22 14:54 HIS METFORMIN ketorolac [From TORADOL] Allergy Intermediate HIVES Verified 03/13/22 14:54 Review of Systems Review of Systems ROS Unobtainable: All systems reviewed & are unremarkable except as noted in HPI and below Patient History Medical History (Updated 03/17/22 @ 12:07 by Estela Ba DO) Back pain Heroin abuse Heroin addiction Surgical History History of fusion of cervical spine History of lumbar fusion Social History household members: spouse Smoking Status: Current every day smoker alcohol intake: former Smoking Status: Current every day smoker tobacco type: cigarettes alcohol intake frequency: 0-2 drinks per day Substance Use Type: marijuana, heroin and methamphetamine Exam Initial Vital Signs Initial Vital Signs: Vital Signs Temperature 98.0 F 03/16/22 22:39 Pulse Rate 88 03/16/22 22:39 Respiratory Rate 16 03/16/22 22:39 Blood Pressure 118/75 03/16/22 22:39 Pulse Oximetry 100 03/16/22 22:39 Oxygen Delivery Method 03/16/22 22:39 Const General: disheveled HENMT Head: normal to inspection and normocephalic Resp Effort & Inspection: normal respiratory effort Cardio Rate: regular rate Neuro Other: Alert oriented x3 Extrem Other: No gross deformities Course Orders Ordered: ED Orders 03/16/22 23:34 Consult to DIRECTOR OF QUALITY CONTROL - Environmental Health And Safety Manager Stat Vital Signs Vital signs: Vital Signs - 8 hr 03/17/22 12:01 Pulse Rate 89 Respiratory Rate 17 Blood Pressure 112/61 Pulse Oximetry 99 Oxygen Delivery Method Room Air Medical Decision Making MDM Narrative Medical decision making narrative: I did discuss the case with the DCR to discuss the indications for potential JESSI secondary to grave disability. The patient once again presents in very similar circumstances as the past several times over my past couple shifts. He is alert oriented x3 however in the past has obviously been paranoid. He seems less paranoid today. After I discussed the case with the DCR it was determined that the patient did not meet eligibility for detainment. During this visit the patient was agreeable to stay. He was given warm blankets and a place to lie down. We will continue to observe the patient. Patient slept all evening. Has been calm. Is still currently sleeping. A social work consult has been placed. Care turned over to day provider to follow-up with social work and disposition. Discharge Plan Departure Patient Disposition: Home Clinical Impression: Chronic knee pain Activity Restrictions/Additional Instructions: Follow-up with the resources given to you by our medical social worker today. There are some options including family housing locally and short term housing options available. If you have access to a phone you can call for assistance at [phone] to chat with our medical social worker who is typically here Friday through Friday noon to 8:00 p.m. most days. Please return if you feel unsafe if you have other new or concerning changes. Prescriptions: No Action metformin 1,000 mg tablet 1,000 mg PO BID naloxone 4 mg/actuation spray,non-aerosol 1 dose Intranasal DIRECTED Label Comments: instill 1 spray in 1 NOSTRIL if needed for opioid overdose may re...(REFER TO PRESCRIPTION NOTES). tamsulosin 0.4 mg capsule,extended release 24hr 0.8 mg PO DAILY olanzapine 10 mg tablet 10 mg PO BID Label Comments: take 1 tablet by mouth twice a day Pain Medication 1 dose PO DIRECTED Label Comments: patient states he gets pain medication (along with Alprazolam) from mental health pharmacy in [facility] but ran out of both. does not recall name of med aspirin 325 mg Tablet,Delayed Release (Dr/Ec) 325 mg PO DAILY Qty: 90 0RF nitroglycerin [Nitrostat] 0.4 mg Tablet, Sublingual 0.4 mg Sublingual [id number] PRN (Reason: Chest Pain) Qty: 1 0RF alprazolam [Xanax] 1 mg tablet 1 mg PO BID PRN (Reason: anxiety) Qty: 14 0RF hydroxyzine HCl 25 mg tablet 25 mg PO Q8H PRN (Reason: Itching) Label Comments: take 1 tablet by mouth every 8 hours if needed for itching FOR UP TO 10 DAYS doxycycline hyclate 100 mg tablet 100 mg PO BID Qty: 20 0RF ondansetron 4 mg tablet,disintegrating 4 mg PO Q8H PRN (Reason: nausea and vomiting) Qty: 10 0RF cyclobenzaprine 5 mg tablet 5 mg PO TID PRN (Reason: muscle spasm) Qty: 10 0RF lidocaine [Lidoderm] 5 % adhesive patch,medicated 2 patch TOP DAILY Qty: 30 0RF Rx Instructions: leave on most painful area for up to 12 hrs daily metoprolol tartrate 50 mg tablet 50 mg PO BID Label Comments: take 1 tablet by mouth twice a day Referrals: Jacky Rios MD [Primary Care Provider] - Visit Report Forms: Patient Portal/API
[2022-03-17 08:35] VITALS: BP 115/68; PULSE 68; RESP 18; O2SAT 99
[2022-03-17 12:01] VITALS: BP 112/61; PULSE 89; RESP 17; O2SAT 99
--- NOTE | 2022-03-17 14:07 | CM.SWNOTE ---
Housing/Community Resources Patient is a 66 yo male who was admitted to [facility] on 03/17/22 after coming to the ED at least 4 times in 48 hrs and pt very high ED frequency hx. Pt states cold and with knee pain. Pt has [employer] and [employer] for insurance and no established PCP at this time. Per ED MD, COLLECTION SYSTEMS ADMINISTRATOR consult placed as pt homeless and many ED visits and could benefit from some resources. Per ED MD, pt with hx of mental health and hx admissions for psychosis and consulted with DCR to determine if pt would meet criteria for gravely disabled and DCR reviewed and determined pt would not meet criteria for detainment and not a danger to self or others at this time or needing Inpt MH tx at this time. COLLECTION SYSTEMS ADMINISTRATOR met with pt in the ED and explained role and pt seems to wax and wane in his ability to provide accurate historical information but pleasant and cooperative and confirms reason for ED visits is due to the change in weather getting cold at night and pt sleeping in the elements. Pt confirms he has been homeless for many years but unclear how long and states he is and spouse also homeless with him but pt unsure where spouse slept last night. Spouse has a cell phone but pt unsure the phone number. Pt originally from [place] and enrolled with [place] there and has attempted to get resources or supports from local tribes in [place] but limited as pt is not enrolled with them. Pt does have local family but limited contact with them and does not have phone numbers for them. Pt receives social security direct deposit and has not worked in many years. Pt and spouse used to have a vehicle that they would stay in but no longer have a vehicle. Pt states he has utilized [employer] a long time ago and has not accessed their services recently and has not used [facility] before. Pt states they do not typically utilize [facility] or Shelters since men and women are and pt and spouse want to remain together. Pt used to be on a waitlist for subsidized housing but was a year or two waitlist and did not remain in contact with them. Pt states he can read and capable of completing applications and SW discussed possible barriers for accessing resources could be if they do not have a working phone or message phone but pt states he thinks spouse's cell phone is working. SW provided [facility] and [employer] voucher program number, [employer], and [place] Community Resources Guide for housing options and shelters. Pt very appreciative and thankful and RN provided multiple food options and hot beverages for pt and he is now wanting to find spouse as he states she typically is the one who helps manage resources and things. COLLECTION SYSTEMS ADMINISTRATOR updated RN and MD and discussed pt would benefit from [employer] [facility] for community follow up as well as referral to [facility] for community support but pt without working phone and spouse current number listed not working and not a specific place pt stays, it would be difficult to on a Friday to set up community outreach. Plan: Patient to d/c back to the community today with multiple resources for food/prison/housing. RAMESH Trammell
== END 2022-03-17 12:34 | disposition home or self-care (01) ==
PROVIDERS: Emergency Provider Emergency Medicine; PCP Family Medicine
DX: M25.561 Pain in right knee (principal); M25.562 Pain in left knee
CPT/HCPCS: 99281

== ENCOUNTER 2022-03-17 20:09 | Emergency (ER) | payer OTHER, MEDICAID, SELFPAY ==
[2017-11-10 08:47] VITALS: BMI 22.8
[2022-03-17 20:11] VITALS: BP 107/80; PULSE 98; RESP 16; TEMP 35.9; O2SAT 99
--- NOTE | 2022-03-17 20:41 | ED.LOWEXIN ---
HPI - Extremity Injury (Lower) General Chief Complaint: Extremity Injury, Lower Stated Complaint: Leg pain Time Seen by Provider: 03/17/22 20:23 Source: patient Mode of arrival: Ambulatory History of Present Illness HPI Narrative: 66-year-old male. Well known to myself as I have seen him multiple times on my last 3 shifts who initially arrived with chief complaint left leg pain however when I questioned the patient about why he was here he stated ?I could not find a warm place to sleep? the temperatures have become in colder in the evenings. It is currently raining. Last evening allow the patient to stay here in the emergency department and sleep and he was seen by social work. I did inquire about his left leg pain. I evaluated him for this recently and had x-rays. He does have arthritis. 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 He also states that he has had trauma to the leg. Once again when further questioned he stated that he was actually here because of the weather outside and he wanted a place to sleep. Related Data Home Medications Medication Instructions Recorded Confirmed Pain Medication 1 dose PO DIRECTED 11/10/17 11/10/17 metformin 1,000 mg tablet 1,000 mg PO BID 11/10/17 07/12/19 naloxone 4 mg/actuation nasal spray 1 dose intranasal DIRECTED 11/10/17 03/09/18 olanzapine 10 mg tablet 10 mg PO BID 11/10/17 08/21/18 tamsulosin 0.4 mg capsule 0.8 mg PO DAILY 11/10/17 07/12/19 metoprolol tartrate 50 mg tablet 50 mg PO BID 06/17/19 07/12/19 hydroxyzine HCl 25 mg tablet 25 mg PO Q8H PRN Itching 07/12/19 07/12/19 Previous Rx's Medication Instructions Recorded alprazolam 1 mg tablet (Xanax) 1 mg PO BID PRN anxiety #14 tabs 11/11/17 aspirin 325 mg tablet,delayed 325 mg PO DAILY #90 tabs 11/11/17 release nitroglycerin 0.4 mg sublingual 0.4 mg sublingual [id number] PRN 11/11/17 tablet (Nitrostat) Chest Pain #1 tab lidocaine 5 % topical patch 2 patch topical DAILY #30 ea 04/15/19 (Lidoderm) doxycycline hyclate 100 mg tablet 100 mg PO BID #20 tabs 11/14/19 cyclobenzaprine 5 mg tablet 5 mg PO TID PRN muscle spasm #10 05/30/20 tabs ondansetron 4 mg disintegrating 4 mg PO Q8H PRN nausea and 05/30/20 tablet vomiting #10 tabs Allergies Allergy/AdvReac Type Severity Reaction Status Date / Time baclofen [BACLOFEN] Allergy Intermediate REACTS TO Verified 03/13/22 14:54 HIS METFORMIN ketorolac [From TORADOL] Allergy Intermediate HIVES Verified 03/13/22 14:54 Review of Systems Review of Systems Narrative: see hpi Musculoskeletal Musculoskeletal: Reports system reviewed and no additional complaints, except as documented Patient History Medical History Back pain Heroin abuse Heroin addiction Surgical History History of fusion of cervical spine History of lumbar fusion Social History household members: spouse Smoking Status: Current every day smoker alcohol intake: former Smoking Status: Current every day smoker tobacco type: cigarettes alcohol intake frequency: 0-2 drinks per day Substance Use Type: marijuana, heroin and methamphetamine Exam Initial Vital Signs Initial Vital Signs: Vital Signs Temperature 96.7 F L 03/17/22 20:11 Pulse Rate 98 H 03/17/22 20:11 Respiratory Rate 16 03/17/22 20:11 Blood Pressure 107/80 03/17/22 20:11 Pulse Oximetry 99 03/17/22 20:11 Oxygen Delivery Method 03/17/22 20:11 Const General: disheveled Resp Effort & Inspection: normal respiratory effort Skin Other: A few small superficial wounds to the left leg without signs of infection. Extrem Other: Patient's left leg exam is the same as what it was a couple days ago. He has no swelling. He does endorse some tenderness to palpation around the knee. Course Vital Signs Vital signs: Vital Signs - 8 hr 03/17/22 20:11 Temperature 96.7 F L Pulse Rate 98 H Respiratory Rate 16 Blood Pressure 107/80 Pulse Oximetry 99 Oxygen Delivery Method Room Air MDM - Extremity Injury (Lower) MDM Narrative Medical decision making narrative: Patient is here for a warm place to sleep. I reassured him that it was unlikely that his brother injected his leg with the polio virus. He appears very similar with his mental status to what he was last evening. I did allow patient to stay and sleep. At 1 point he did ask to get up and go smoke and we told him that there was no smoking on the hospital grounds. He went back to his room. At some point the patient left the emergency department without discharge instructions. Discharge Plan Departure Patient Disposition: Left Against Medical Advice Clinical Impression: Homelessness Prescriptions: No Action metformin 1,000 mg tablet 1,000 mg PO BID naloxone 4 mg/actuation spray,non-aerosol 1 dose Intranasal DIRECTED Label Comments: instill 1 spray in 1 NOSTRIL if needed for opioid overdose may re...(REFER TO PRESCRIPTION NOTES). tamsulosin 0.4 mg capsule,extended release 24hr 0.8 mg PO DAILY olanzapine 10 mg tablet 10 mg PO BID Label Comments: take 1 tablet by mouth twice a day Pain Medication 1 dose PO DIRECTED Label Comments: patient states he gets pain medication ([facility] with Al[facility]olam[facility] but ran out of both. does not recall name of med aspirin 325 mg Tablet,Delayed Release (Dr/Ec) 325 mg PO DAILY Qty: 90 0RF nitroglycerin [Nitrostat] 0.4 mg Tablet, Sublingual 0.4 mg Sublingual [id number] PRN (Reason: Chest Pain) Qty: 1 0RF alprazolam [Xanax] 1 mg tablet 1 mg PO BID PRN (Reason: anxiety) Qty: 14 0RF hydroxyzine HCl 25 mg tablet 25 mg PO Q8H PRN (Reason: Itching) Label Comments: take 1 tablet by mouth every 8 hours if needed for itching FOR UP TO 10 DAYS doxycycline hyclate 100 mg tablet 100 mg PO BID Qty: 20 0RF ondansetron 4 mg tablet,disintegrating 4 mg PO Q8H PRN (Reason: nausea and vomiting) Qty: 10 0RF cyclobenzaprine 5 mg tablet 5 mg PO TID PRN (Reason: muscle spasm) Qty: 10 0RF lidocaine [Lidoderm] 5 % adhesive patch,medicated 2 patch TOP DAILY Qty: 30 0RF Rx Instructions: leave on most painful area for up to 12 hrs daily metoprolol tartrate 50 mg tablet 50 mg PO BID Label Comments: take 1 tablet by mouth twice a day Referrals: Jacky Rios MD [Primary Care Provider] - Stand Alone Forms: Against Medical Advice
== END 2022-03-17 22:05 | disposition left against medical advice (07) ==
PROVIDERS: Emergency Provider Emergency Medicine; PCP Family Medicine
DX: M79.605 Pain in left leg (principal); Z59.00 Homelessness unspecified
CPT/HCPCS: 99281

== ENCOUNTER 2022-03-20 00:28 | Emergency (ER) | payer OTHER, MEDICAID, SELFPAY ==
[2017-11-10 08:47] VITALS: BMI 22.8
--- NOTE | 2022-03-20 00:36 | PC.NURSE ---
Pt was trespassed this week after leaving ama and sleeping in waiting room. Notified patient if he needed to be seen by a Dr he could come in and be evaluated but that staying the night would not be an option unless medically necessary. Pt has refused [place] PD's offer of transport to half-way on previous visits. Pt said he was going to leave. Again pt was notified that if he needed to see a Dr he could come back, pt declined and walked out the front door.
== END 2022-03-20 00:44 | disposition left against medical advice (07) ==
PROVIDERS: Emergency Provider Emergency Medicine; PCP Family Medicine

== ENCOUNTER 2022-03-22 00:16 | Emergency (ER) | payer OTHER, MEDICAID, SELFPAY ==
[2017-11-10 08:47] VITALS: BMI 22.8
[2022-03-22] VITALS (12 sets, daily range): BP systolic 126–150; BP diastolic 65–109; PULSE 70–86; RESP 16; TEMP 36.6–36.9; O2SAT 85–99
--- NOTE | 2022-03-22 00:28 | DI.RAD.S_ITS ---
PROCEDURE: XR CERVICAL SPINE 2V OR 3V INDICATIONS: ETOH TECHNIQUE: Four views of the cervical spine were acquired. COMPARISON: [facility], CR, XR CERVICAL SPINE 2V OR 3V, 03/15/2022, 1:18. FINDINGS: Bones: There is motion artifact limiting evaluation. No definite fractures or dislocations to the C7 level. The lateral masses of C1 appear intact on the odontoid view. There are postsurgical changes status post ORIF at C5-C7. The surgical hardware appears intact. No suspicious bony lesions. Soft tissues: No prevertebral soft tissue swelling. IMPRESSION: 1. No definite fracture or subluxation. Dictated by: Reji Jorge M.D. on 03/22/2022 at 1:31 Approved by: Reji Jorge M.D. on 03/22/2022 at 1:34
--- NOTE | 2022-03-22 00:28 | DI.RAD.S_ITS ---
PROCEDURE: XR CHEST 1V INDICATIONS: chest pain TECHNIQUE: One view of the chest was acquired. COMPARISON: [facility], CR, XR CHEST 1V, 06/17/2019, 13:15. FINDINGS: Surgical changes and devices: None. Lungs and pleura: Lungs are clear. No pleural effusions or pneumothorax. Mediastinum: Mediastinal contours appear normal. Heart size is normal. Bones and chest wall: There are old healed left rib fractures redemonstrated. No suspicious bony lesions. Overlying soft tissues appear unremarkable. IMPRESSION: 1. No acute cardiopulmonary disease. Dictated by: Reji Jorge M.D. on 03/22/2022 at 1:23 Approved by: Reji Jorge M.D. on 03/22/2022 at 1:24
--- NOTE | 2022-03-22 00:30 | ED.GENADULT ---
HPI - General Adult General Chief complaint: Extremity Problem,Nontraumatic Stated complaint: Jaw and neck pain Time Seen by Provider: 03/22/22 00:28 History of Present Illness HPI narrative: Patient brought here by ambulance from local [facility]. Original complaint was someone told him his hands looked dark in color. He then complained of bilateral neck pain and jaw pain. No chest pain or dyspnea. No back pain abdominal pain. Patient has history of PR in the past. History of oral medication controlled diabetes. Patient states he has been off his medications for over 20 years since he moved here from [place]. Patient states he and his for homeless. The stay out in the elements, sleep where they can. Currently no housing. Patient denies any injury. Complains of bilateral feet and hand tingling. Hands are warm soft and pink. No signs of frostbite or vang nip. The same for the feet. Shoes and socks removed. Has painful neck as he described with movement. Increased pain with turning his head to the left. States he is had neck problems in the past and this is not new Patient seen here 3 times already in the past week. Twice on March 15 and then on March 16 as well as on Related Data Home Medications Medication Instructions Recorded Confirmed Pain Medication 1 dose PO DIRECTED 11/10/17 11/10/17 metformin 1,000 mg tablet 1,000 mg PO BID 11/10/17 07/12/19 naloxone 4 mg/actuation nasal spray 1 dose intranasal DIRECTED 11/10/17 03/09/18 olanzapine 10 mg tablet 10 mg PO BID 11/10/17 08/21/18 tamsulosin 0.4 mg capsule 0.8 mg PO DAILY 11/10/17 07/12/19 metoprolol tartrate 50 mg tablet 50 mg PO BID 06/17/19 07/12/19 hydroxyzine HCl 25 mg tablet 25 mg PO Q8H PRN Itching 07/12/19 07/12/19 Previous Rx's Medication Instructions Recorded alprazolam 1 mg tablet (Xanax) 1 mg PO BID PRN anxiety #14 tabs 11/11/17 aspirin 325 mg tablet,delayed 325 mg PO DAILY #90 tabs 11/11/17 release nitroglycerin 0.4 mg sublingual 0.4 mg sublingual [id number] PRN 11/11/17 tablet (Nitrostat) Chest Pain #1 tab lidocaine 5 % topical patch 2 patch topical DAILY #30 ea 04/15/19 (Lidoderm) doxycycline hyclate 100 mg tablet 100 mg PO BID #20 tabs 11/14/19 cyclobenzaprine 5 mg tablet 5 mg PO TID PRN muscle spasm #10 05/30/20 tabs ondansetron 4 mg disintegrating 4 mg PO Q8H PRN nausea and 05/30/20 tablet vomiting #10 tabs Allergies Allergy/AdvReac Type Severity Reaction Status Date / Time baclofen [BACLOFEN] Allergy Intermediate REACTS TO Verified 03/13/22 14:54 HIS METFORMIN ketorolac [From TORADOL] Allergy Intermediate HIVES Verified 03/13/22 14:54 Review of Systems Review of Systems Narrative: GENERAL: Denies chills, fatigue, malaise, fever, sweats. HEENT: Denies sinus pain, ear pain, sore throat RESPIRATORY: Denies dyspnea, cough CARDIOVASCULAR: Denies chest pain, palpitations GASTROINTESTINAL: Denies nausea, vomiting, abdominal pain : Denies dysuria, frequency, hematuria MUSCULOSKELETAL: Positive muscle or bony pain SKIN: Denies rash, skin lesions NEUROLOGIC: Denies weakness, positive numbness ROS Unobtainable: All systems reviewed & are unremarkable except as noted in HPI and below Patient History Medical History (Updated 03/22/22 @ 01:41 by Jose Enrique Dong MD) Back pain Heroin abuse Heroin addiction Surgical History History of fusion of cervical spine History of lumbar fusion Social History household members: spouse Smoking Status: Current every day smoker alcohol intake: former Smoking Status: Current every day smoker tobacco type: cigarettes alcohol intake frequency: 0-2 drinks per day Substance Use Type: marijuana, heroin and methamphetamine Exam Narrative Exam Narrative: GENERAL: in no distress, not toxic not dyspneic HEAD: Normocephalic. EYES: Pupils equal round No scleral icterus. ENT: Mucous membranes moist. NECK: Trachea midline. Tenderness to bilateral neck and increased pain with turning his head left and right with increased pain with rotating to the left. No midline tenderness or step-off CARDIOVASCULAR: Regular rate and rhythm without murmurs RESPIRATORY: Clear to auscultation. Breath sounds equal bilaterally. No wheezes, rales, or rhonchi. GASTROINTESTINAL: Abdomen soft, non-tender EXTREMITIES: No gross deformities. Hands and feet warm soft and pink no signs of vang nip or frostbite. Brisk cap refills with light touch intact to bilateral hands fingers feet and toes. No necrotic digits. BACK: No flank tenderness. NEURO: AOx4. SKIN: Warm and dry PSYCH: Not anxious, is cooperative Initial Vital Signs Initial Vital Signs: Vital Signs Pulse Rate 80 03/22/22 00:24 Pulse Oximetry 99 03/22/22 00:24 Course Course Course Narrative: No new issues during course of stay Orders Ordered: ED Orders 03/22/22 00:28 XR cervical spine 2V or 3V Stat XR chest 1V Stat 03/22/22 00:29 EKG-12 Lead Stat 03/22/22 00:45 CBC Auto Diff [Complete Blood Count AUTO DIFF] Stat CMP [Comprehensive Metabolic Panel] Stat Troponin & CK Cardiac Panel Stat 03/22/22 02:40 Troponin & CK Cardiac Panel Stat Reevaluation(s) Reevaluation #1: Patient sleeping soundly. Awoke patient. In no distress. Reviewed results with him. At this time laboratory studies imaging EKG are reassuring. Patient does need to follow up with the primary care to restart his medications. Referrals given to him. Also residential resources given to him as well. Return precautions reviewed with him Time: 01:41 Reevaluation #2: Patient sleeping, no distress. Time: 02:38 Reevaluation #3: Sleeping soundly at this time. Time: 04:17 Additional Reevaluation(s): 6:00 a.m.. Patient awake. Reviewed results with him. He understands he needs to obtain a family doctor resume his medications. Reviewed with him likely developing diabetic neuropathy. X-ray of the neck done and is reassuring however pain is chronic. Vital Signs Vital signs: Vital Signs - 8 hr 03/22/22 00:30 03/22/22 00:24 03/22/22 00:30 Temperature 98.4 F Pulse Rate 86 80 83 Respiratory Rate 16 Blood Pressure 150/87 H Pulse Oximetry 98 99 98 Oxygen Delivery Method Room Air 03/22/22 01:02 03/22/22 01:03 03/22/22 01:03 Temperature Pulse Rate 79 71 Respiratory Rate Blood Pressure 135/90 Pulse Oximetry 98 85 L Oxygen Delivery Method 03/22/22 01:30 03/22/22 01:31 03/22/22 02:00 Temperature Pulse Rate 83 85 Respiratory Rate Blood Pressure 126/109 H Pulse Oximetry 94 85 L Oxygen Delivery Method 03/22/22 02:01 03/22/22 02:01 03/22/22 02:02 Temperature Pulse Rate 85 Respiratory Rate Blood Pressure 148/73 H 145/86 H Pulse Oximetry 91 Oxygen Delivery Method 03/22/22 02:02 03/22/22 02:04 03/22/22 02:04 Temperature Pulse Rate 81 71 Respiratory Rate Blood Pressure 138/83 Pulse Oximetry 98 99 Oxygen Delivery Method 03/22/22 02:30 03/22/22 02:30 03/22/22 06:28 Temperature 98 F Pulse Rate 70 84 Respiratory Rate 16 Blood Pressure 127/70 131/65 Pulse Oximetry 97 97 Oxygen Delivery Method Room Air Medical Decision Making Differential Diagnosis Differential Diagnosis: Acute on chronic neck pain, diabetic neuropathy, homeless, noncompliance Lab Data Result diagrams: 03/22/22 00:45 03/22/22 00:45 Labs: Lab Results 03/22/22 03/22/22 03/22/22 Range/Units 00:45 00:45 02:40 WBC 5.9 (4.5-11.0) X10^3/uL RBC 4.02 L (4.5-5.9) X10^6/uL Hgb 11.9 L (13.5-17.5) g/dL Hct 35.5 L (41-53) % MCV 88.3 (80-100) fL MCH 29.7 (26-34) PG MCHC 33.6 (30-36) % RDW 15.6 H (11.6-14.8) % Plt Count 174 (150-400) X10^3/uL Neut % (Auto) 66.6 (50-75) % Lymph % (Auto) 19.2 L (25-40) % [place] % (Auto) 10.2 (3-14) % Eos % (Auto) 3.3 (2-4) % Baso % (Auto) 0.7 (0-2) % Neut # (Auto) 3900 (5156-3680) /uL Lymph # (Auto) 1100 (4681-0698) /uL [place] # (Auto) 600 (0-900) /uL Eos # (Auto) 200 (0-450) /uL Baso # (Auto) 0 (0-100) /uL Sodium 138 (137-145) mmol/L Potassium 3.4 (3.4-5.1) mmol/L Chloride 104 (98-107) mmol/L Carbon Dioxide 23 (22-32) mmol/L BUN 31 H (9-20) mg/dL Creatinine 0.83 (0.66-1.25) mg/dL Estimated GFR > 60 (>60) mL/min BUN/Creatinine Ratio 37.3 H (6-22) Glucose 104 (80-110) mg/dL Calcium 8.1 L (8.4-10.2) mg/dL Total Bilirubin 0.4 (0.2-1.3) mg/dL AST 63 H (17-59) IU/L ALT 39 (<50) IU/L Alkaline Phosphatase 99 (38-126) U/L Total Creatine Kinase 625 H 584 H (55-170) U/L CK-MB (CK-2) 9.74 H 8.48 H (<2.37) ng/mL CK-MB (CK-2) Rel Index 1.6 1.5 (1.5-5.0) % Troponin I < 0.012 < 0.012 (0.01-0.034) ng/mL Total Protein 7.5 (6.3-8.2) g/dL Albumin 3.9 (3.5-5.0) g/dL Globulin 3.6 (1.7-4.1) g/dL Albumin/Globulin Ratio 1.1 (1.0-2.8) Imaging Data Chest x-ray: Radiologist's Impression: [address] [address] XRay Report Signed Patient: Jacobo Dash MR#: [id number] : 1955 Acct:[id number] Age/Sex: 66 / M Date of Service: 03/22/22 Loc: ED Accession Number: [id number] ?? Procedure: XR chest 1V Ordering Provider: Jose Enrique Dong MD PROCEDURE:? XR CHEST 1V ? INDICATIONS:? chest pain ? TECHNIQUE:? One view of the chest was acquired.? ? COMPARISON:? [facility], CR, XR CHEST 1V, 06/17/2019, 13:15. ? FINDINGS:? ? Surgical changes and devices:? None.? ? Lungs and pleura:? Lungs are clear.? No pleural effusions or pneumothorax.? ? Mediastinum:? Mediastinal contours appear normal.? Heart size is normal.? ? Bones and chest wall:? There are old healed left rib fractures redemonstrated.? No suspicious bony lesions.? Overlying soft tissues appear unremarkable.? ? IMPRESSION:? ? 1.? No acute cardiopulmonary disease. ? ? ? Dictated by: Reji Jorge M.D. on 03/22/2022 at 1:23 ? ? Approved by: Reji Jorge M.D. on 03/22/2022 at 1:24 ? X-ray cervical spine: Radiologist's Impression: [place] [address] XRay Report Signed Patient: Jacobo Dash MR#: [id number] : 1955 Acct:[id number] Age/Sex: 66 / M Date of Service: 03/22/22 Loc: ED Accession Number: [id number] ?? Procedure: XR cervical spine 2V or 3V Ordering Provider: Jose Enrique Dong MD PROCEDURE:? XR CERVICAL SPINE 2V OR 3V ? INDICATIONS:? ETOH ? TECHNIQUE:? Four views of the cervical spine were acquired.? ? COMPARISON:? [facility], CR, XR CERVICAL SPINE 2V OR 3V, 03/15/2022, 1:18. ? FINDINGS:? ? Bones:? There is motion artifact limiting evaluation.? No definite fractures or dislocations to the C7 level.? The lateral masses of C1 appear intact on the odontoid view.? There are postsurgical changes status post ORIF at C5-C7.? The surgical hardware appears intact.? No suspicious bony lesions.? ? Soft tissues:? No prevertebral soft tissue swelling.? ? ? IMPRESSION:? ? 1. No definite fracture or subluxation.? ? ? Dictated by: Reji Jorge M.D. on 03/22/2022 at 1:31 ? ? Approved by: Reji Jorge M.D. on 03/22/2022 at 1:34 ? ECG Data Interpretation: Sinus rhythm rate [address] elevation or depression MDM Narrative Medical decision making narrative: Appropriate for discharge home. Patient here for acute on chronic problems. Denies any chest pain. Exam and laboratory studies and imaging and EKG are reassuring. Patient's feet and hands complaint of tingling likely developing diabetic neuropathy. No signs of frostbite of vang nip. No necrotic tissue. Patient neurovascularly intact. Return precautions reviewed with him. His jaw and neck pain which or bilateral or likely from his chronic neck pain. Patient provided list of resources for residential. Discharge Plan Departure Patient Disposition: Home Clinical Impression: Chronic neck pain, Peripheral neuropathy Instructions: Chronic Neck Pain, DI for Peripheral Neuropathy Activity Restrictions/Additional Instructions: Return if worse if any questions or concerns. Please see family doctor for re-evaluation of your symptoms and to restart your home medications. Call provided primary care referral phone number to establish family doctor. Call [phone]. We have provided some resources for residential for you. Please use those resources. Prescriptions: No Action metformin 1,000 mg tablet 1,000 mg PO BID naloxone 4 mg/actuation spray,non-aerosol 1 dose Intranasal DIRECTED Label Comments: instill 1 spray in 1 NOSTRIL if needed for opioid overdose may re...(REFER TO PRESCRIPTION NOTES). tamsulosin 0.4 mg capsule,extended release 24hr 0.8 mg PO DAILY olanzapine 10 mg tablet 10 mg PO BID Label Comments: take 1 tablet by mouth twice a day Pain Medication 1 dose PO DIRECTED Label Comments: patient states he gets pain medication (along with Alprazolam) from mental health pharmacy in [facility] but ran out of both. does not recall name of med aspirin 325 mg Tablet,Delayed Release (Dr/Ec) 325 mg PO DAILY Qty: 90 0RF nitroglycerin [Nitrostat] 0.4 mg Tablet, Sublingual 0.4 mg Sublingual [id number] PRN (Reason: Chest Pain) Qty: 1 0RF alprazolam [Xanax] 1 mg tablet 1 mg PO BID PRN (Reason: anxiety) Qty: 14 0RF hydroxyzine HCl 25 mg tablet 25 mg PO Q8H PRN (Reason: Itching) Label Comments: take 1 tablet by mouth every 8 hours if needed for itching FOR UP TO 10 DAYS doxycycline hyclate 100 mg tablet 100 mg PO BID Qty: 20 0RF ondansetron 4 mg tablet,disintegrating 4 mg PO Q8H PRN (Reason: nausea and vomiting) Qty: 10 0RF cyclobenzaprine 5 mg tablet 5 mg PO TID PRN (Reason: muscle spasm) Qty: 10 0RF lidocaine [Lidoderm] 5 % adhesive patch,medicated 2 patch TOP DAILY Qty: 30 0RF Rx Instructions: leave on most painful area for up to 12 hrs daily metoprolol tartrate 50 mg tablet 50 mg PO BID Label Comments: take 1 tablet by mouth twice a day Referrals: Jacky Rios MD [Primary Care Provider] - Visit Report Forms: Patient Portal/API
--- NOTE | 2022-03-22 00:35 | PC.NURSE ---
RT at bedside to perform EKG
--- NOTE | 2022-03-22 00:40 | PC.NURSE ---
difficult to evaluate due to inconsistencies - states that his fingers have been tingly - painful - then states that the sides of his neck hurt - and his chin - and his feet are jumpy - then states that there is a spot on his right wrist that looks like a worm - states that he pulled and pulled a long worm out - states that he doesn't know where it came from - no noticeable worms or otherwise noted - pt mumbles - falls asleep easily
--- NOTE | 2022-03-22 00:50 | PC.NURSE ---
To radiology via stretcher
--- NOTE | 2022-03-22 01:01 | PC.NURSE ---
returned from radiology via stretcher
[2022-03-22 01:09] LABS: Add Manual Diff / Slide Review NO; Basophils Absolute Auto 0 /uL (0-100); Basophils Percent Auto 0.7 % (0-2); Eosinophils Absolute Auto 200 /uL (0-450); Eosinophils Percent Auto 3.3 % (2-4); Hematocrit 35.5 % (41-53); Hemoglobin 11.9 g/dL (13.5-17.5); Lymphocytes Absolute Auto 1100 /uL (1100-4500); Lymphocytes Percent Auto 19.2 % (25-40); Mean Corpuscular HGB Conc 33.6 % (30-36); Mean Corpuscular Hemoglobin 29.7 PG (26-34); Mean Corpuscular Volume 88.3 fL (80-100); Monocytes Absolute Auto 600 /uL (0-900); Monocytes Percent Auto 10.2 % (3-14); Neutrophils Absolute Auto 3900 /uL (1500-7000); Neutrophils Percent Auto 66.6 % (50-75); Platelet Count 174 X10^3/uL (150-400); Red Blood Cell Count 4.02 X10^6/uL (4.5-5.9); Red Cell Distribution Width 15.6 % (11.6-14.8); White Blood Cell Count 5.9 X10^3/uL (4.5-11.0)
[2022-03-22 01:11] LABS: Alanine Aminotransferase 39 IU/L (<50); Albumin 3.9 g/dL (3.5-5.0); Albumin Globulin Ratio 1.1 (1.0-2.8); Alkaline Phosphatase 99 U/L (38-126); Aspartate Aminotransferase 63 IU/L (17-59); BUN Creatinine Ratio 37.3 (6-22); Bilirubin Total 0.4 mg/dL (0.2-1.3); Blood Urea Nitrogen 31 mg/dL (9-20); Calcium 8.1 mg/dL (8.4-10.2); Carbon Dioxide 23 mmol/L (22-32); Chloride 104 mmol/L (98-107); Creatine Kinase 625 U/L (55-170); Estimated Glomerular Filt Rate > 60 mL/min (>60); Globulin 3.6 g/dL (1.7-4.1); Glucose 104 mg/dL (80-110); HEMOLYSIS 21 (0-50); Potassium 3.4 mmol/L (3.4-5.1); Sodium 138 mmol/L (137-145); Total Protein 7.5 g/dL (6.3-8.2)
[2022-03-22 01:23] LABS: Troponin I < 0.012 ng/mL (0.01-0.034)
[2022-03-22 01:26] LABS: CKMB % Relative Index 1.6 % (1.5-5.0); Creatine Kinase MB 9.74 ng/mL (<2.37)
--- NOTE | 2022-03-22 02:00 | PC.NURSE ---
Ambulatory to the bathroom with steady gait
--- NOTE | 2022-03-22 03:00 | PC.NURSE ---
resting quietly in NAD - respirations equal and unlabored bilaterally - PWD - denies needs - mumbles when awoken - awaiting lab results
[2022-03-22 03:06] LABS: Creatine Kinase 584 U/L (55-170)
[2022-03-22 03:19] LABS: Troponin I < 0.012 ng/mL (0.01-0.034)
[2022-03-22 03:22] LABS: CKMB % Relative Index 1.5 % (1.5-5.0); Creatine Kinase MB 8.48 ng/mL (<2.37)
--- NOTE | 2022-03-22 04:00 | PC.NURSE ---
No changes in pt status at this time - no needs voiced
--- NOTE | 2022-03-22 05:00 | PC.NURSE ---
No changes in pt status at this time
== END 2022-03-22 06:29 | disposition home or self-care (01) ==
PROVIDERS: Emergency Provider Emergency Medicine; PCP Family Medicine
DX: M54.2 Cervicalgia (principal); R68.84 Jaw pain; R07.9 Chest pain, unspecified; G62.9 Polyneuropathy, unspecified
CPT/HCPCS: 36415; 71045; 72040; 80053; 82550; 82553; 84484; 85025; 93005; 99283; 99284

== ENCOUNTER 2022-03-24 23:56 | Emergency (ER) | payer OTHER, MEDICAID, SELFPAY ==
[2017-11-10 08:47] VITALS: BMI 22.8
[2022-03-25] VITALS (8 sets, daily range): BP systolic 125–155; BP diastolic 67–80; PULSE 82–96; RESP 14–24; TEMP 36; O2SAT 82–98
--- NOTE | 2022-03-25 00:30 | DI.RAD.S_ITS ---
PROCEDURE: XR CHEST 1V INDICATIONS: abrasion head, altered from usual TECHNIQUE: One view of the chest was acquired. COMPARISON: [facility], CR, XR CHEST 1V, 03/22/2022, 0:34. FINDINGS: Surgical changes and devices: None. Lungs and pleura: There are low lung volumes. Pulmonary vascular prominence is noted suggestive of vascular crowding, versus mild pulmonary edema. No pleural effusions or pneumothorax. Mediastinum: Mediastinal contours appear normal. Heart size is normal. Bones and chest wall: There are multiple healed left posterior rib fractures redemonstrated. No suspicious bony lesions. Overlying soft tissues appear unremarkable. IMPRESSION: 1. Low lung volumes with pulmonary vascular prominence suggestive of vascular crowding, versus mild pulmonary edema. Dictated by: Reji Jorge M.D. on 03/25/2022 at 1:59 Approved by: Reji Jorge M.D. on 03/25/2022 at 2:00
--- NOTE | 2022-03-25 00:30 | DI.RAD.S_ITS ---
PROCEDURE: XR PELVIS 1-2V INDICATIONS: abrasion head, altered from usual TECHNIQUE: Single-view of the pelvis acquired. COMPARISON: None. FINDINGS: Bones: No displaced fractures or dislocations, with evaluation of the right hip limited by projection. No suspicious bony lesions. Soft tissues: Visualized bowel gas pattern is normal. No suspicious soft tissue calcifications. IMPRESSION: 1. No definite displaced fracture or dislocation. However, evaluation of the right hip is limited due to projection and if clinical concern persists, consider additional dedicated right hip images or further evaluation with CT. Dictated by: Reji Jorge M.D. on 03/25/2022 at 1:58 Approved by: Reji Jorge M.D. on 03/25/2022 at 1:59
--- NOTE | 2022-03-25 00:30 | DI.CT.S_ITS ---
PROCEDURE: CT CERVICAL SPINE WO CON INDICATIONS: Trauma TECHNIQUE: Noncontrast 3 mm thick sections acquired from the skull base to the T4 level. Sagittal and coronal reformats were then constructed. For radiation dose reduction, the following was used: automated exposure control, adjustment of mA and/or kV according to patient size. COMPARISON: [facility], CT, CT CERVICAL SPINE WO CON, 11/20/2021, 5:12. FINDINGS: Image quality: There is mild motion artifact limiting evaluation. Bones: No fractures or subluxation. There are postsurgical changes status post ACDF and posterior fixation at C5-C7 redemonstrated. Surgical hardware appears intact. No new associated suspicious lucencies. There is anterolisthesis at C3-C4 measuring approximately 0.5 cm which appears similar to the prior study. There is also minimal anterolisthesis at C4-C5 as well as T1-T2 redemonstrated. There is multilevel degenerative disc disease and facet joint arthropathy redemonstrated. Visualized superior ribs are intact. Soft tissues: Prevertebral soft tissues are normal in thickness. No paravertebral hematomas. No apical pneumothoraces. IMPRESSION: 1. No acute fracture or subluxation. 2. Postsurgical changes redemonstrated at C5-C7. No definite evidence of hardware failure. 3. Mild multilevel anterolisthesis appears similar to the prior study. Dictated by: Reji Jorge M.D. on 03/25/2022 at 1:43 Approved by: Reji Jorge M.D. on 03/25/2022 at 1:49
--- NOTE | 2022-03-25 00:30 | DI.CT.S_ITS ---
PROCEDURE: CT HEAD/BRAIN WO CON INDICATIONS: Trauma TECHNIQUE: Noncontrast 4.5 mm thick angled axial sections acquired from the foramen magnum to the vertex, with coronal and sagittal reformats. For radiation dose reduction, the following was used: automated exposure control, adjustment of mA and/or kV according to patient size. COMPARISON: [facility], CT, CT HEAD/BRAIN WO CON, 11/20/2021, 5:12. FINDINGS: Image quality: There is mild motion artifact. CSF spaces: Basal cisterns are patent. No extra-axial fluid collections. Ventricles are normal in size and shape. Brain: No definite intracranial hemorrhage, mass, or mass effect. Vick-white matter interface appears preserved. Skull and face: Calvarium and visualized facial bones are intact, without suspicious lesions. Sinuses: Visualized sinuses and mastoids are clear. IMPRESSION: 1. No definite acute intracranial abnormality. Dictated by: Reji Jorge M.D. on 03/25/2022 at 1:42 Approved by: Reji Jorge M.D. on 03/25/2022 at 1:43
--- NOTE | 2022-03-25 00:32 | ED_ITS ---
HPI - Head Injury General Chief complaint: Head Injury Stated complaint: LEFT FOOT SORE Time Seen by Provider: 03/25/22 00:24 Source: patient Mode of arrival: Ambulatory Limitations: no limitations History of Present Illness HPI Narrative: THIS IS A 66-YEAR-OLD MALE WITH KNOWN HISTORY OF DRUG ABUSE WHO IS FREQUENTLY SEEN HERE AND IS HOMELESS. PATIENT PRESENTS TODAY WITH LEFT FOOT PAIN BUT HAS ABRASION ON HIS FOREHEAD THAT HAS SOME ACTIVE BLEEDING INDICATES THAT HE FELL. HE CAN NOT GIVE ME MUCH HISTORY AND HE SEEMS MORE CONFUSED THAN HIS NORMAL BASELINE. PATIENT UNABLE TO GIVE MUCH HISTORY, HE IS TALKATIVE BUT PERSEVERATES WHICH IS NORMAL FOR HIM BUT IS DIFFICULT TO FOLLOW. Related Data Home Medications Medication Instructions Recorded Confirmed Pain Medication 1 dose PO DIRECTED 11/10/17 11/10/17 metformin 1,000 mg tablet 1,000 mg PO BID 11/10/17 07/12/19 naloxone 4 mg/actuation nasal spray 1 dose intranasal DIRECTED 11/10/17 03/09/18 olanzapine 10 mg tablet 10 mg PO BID 11/10/17 08/21/18 tamsulosin 0.4 mg capsule 0.8 mg PO DAILY 11/10/17 07/12/19 metoprolol tartrate 50 mg tablet 50 mg PO BID 06/17/19 07/12/19 hydroxyzine HCl 25 mg tablet 25 mg PO Q8H PRN Itching 07/12/19 07/12/19 Previous Rx's Medication Instructions Recorded alprazolam 1 mg tablet (Xanax) 1 mg PO BID PRN anxiety #14 tabs 11/11/17 aspirin 325 mg tablet,delayed 325 mg PO DAILY #90 tabs 11/11/17 release nitroglycerin 0.4 mg sublingual 0.4 mg sublingual [id number] PRN 11/11/17 tablet (Nitrostat) Chest Pain #1 tab lidocaine 5 % topical patch 2 patch topical DAILY #30 ea 04/15/19 (Lidoderm) doxycycline hyclate 100 mg tablet 100 mg PO BID #20 tabs 11/14/19 cyclobenzaprine 5 mg tablet 5 mg PO TID PRN muscle spasm #10 05/30/20 tabs ondansetron 4 mg disintegrating 4 mg PO Q8H PRN nausea and 05/30/20 tablet vomiting #10 tabs Allergies Allergy/AdvReac Type Severity Reaction Status Date / Time baclofen [BACLOFEN] Allergy Intermediate REACTS TO Verified 03/13/22 14:54 HIS METFORMIN ketorolac [From TORADOL] Allergy Intermediate HIVES Verified 03/13/22 14:54 Review of Systems Review of Systems ROS Unobtainable: Unobtainable due to mental status/LOC Patient History Medical History (Updated 03/25/22 @ 06:38 by Estela Ba DO) Back pain Heroin abuse Heroin addiction Surgical History History of fusion of cervical spine History of lumbar fusion Social History household members: spouse Smoking Status: Current every day smoker alcohol intake: former Smoking Status: Current every day smoker tobacco type: cigarettes alcohol intake frequency: 0-2 drinks per day Substance Use Type: marijuana, heroin and methamphetamine Exam Narrative Exam Narrative: GEN: PATIENT APPEARS IN MODERATE DISTRESS. HEAD: PATIENT HAS ABRASION BRIGHT RED BLOOD OOZING OVER THE ANTERIOR FOREHEAD AT THE HAIRLINE, NO RACCOON/DEWITT SIGN. NECK: NONTENDER, PAINLESS RANGE OF MOTION, TRACHEA MIDLINE, PATIENT HAS SEVERE KYPHOSIS SO C-COLLAR WAS DEFERRED THIS WOULD FORCE PATIENT INTO IN A NATURAL POSITION. POSITIVE FOR NEXUS CRITERIA, THERE IS NO MIDLINE LINE TENDERNESS, DISTRACTING INJURY, POSITIVE FOR ALTERED MENTAL STATUS, NO NEURO DEFICIT, RECENT ETOH. EYES: PERRLA, EOMI ENT: EXTERNAL INSPECTION NORMAL, TRACHEA IS MIDLINE, TM'S ARE NORMAL NO HEMOTYPANUM, NARES ARE CLEAR, NO SEPTAL HEMATOMA, NO DENTAL OR ORAL INJURY, AIRW AY IS NORMAL AND WITH NORMAL OCCLUSION, NO BONY TENDERNESS RESP: CHEST IS NONTENDER AND HAS SYMMETRIC MOVEMENT, NO ECCHYMOSIS, BREATH SOUNDS ARE NORMAL NO CRACKLES, WHEEZES OR RALES CVS: HEART SOUNDS ARE NORMAL, NO MURMUR NOTED, NO JVD. ABG/GI: NONTENDER, SOFT, NORMAL BOWEL SOUNDS, NO DISTENTION, NO ORGANOMEGALY, [place] IS NEGATIVE NEURO: ORIENTED AOX3, NEURO IS GROSSLY INTACT, SENSATION AND MOTOR IS NORMAL ALL 4 EXTREMITIES MOVING, CRANIAL NERVES II THROUGH XII ARE INTACT, GCS IS 14 PSYCH: NORMAL MOOD AND AFFECT SKIN: INTACT other than noted above, WARM AND DRY, NO CREPITUS AND WITHOUT D ECUBITUS BACK: NO CVA TENDERNESS, NO VERTEBRAL TENDERNESS, NO STEP-OFF'S, NO CREPITUS EXT: ATRAUMATIC, HIPS ARE NONTENDER, NO PEDAL EDEMA, NORMAL COLOR AND TEMPERATURE, NORMAL RANGE OF MOTION OF EXTREMITIES WITH NORMAL TENDON EXAM, 2+ PULSES IN ALL FOUR EXTREMITIES Initial Vital Signs Initial Vital Signs: Vital Signs Temperature 96.8 F L 03/25/22 00:25 Pulse Rate 87 03/25/22 00:25 Respiratory Rate 24 03/25/22 00:25 Blood Pressure 138/68 03/25/22 00:25 Pulse Oximetry 97 03/25/22 00:25 Oxygen Delivery Method 03/25/22 00:[address] [place] [address] Head Rule GCS < 15 at 2 hr post trauma: Yes GCS Bibiana coma scale eye opening: Spontaneous [place] coma scale verbal response: Confused [place] coma scale motor response: Obey commands Bibiana coma scale total score: 14 Nexus Score for C-Spine Focal Neurologic deficit present: No Midline spinal tenderness present: No Altered level of conciousness present: Yes Intoxication present: Yes (maybe) Distracting Injury Present: No Nexus Criteria for C-spine: 2 Course Orders Ordered: Discontinued Medications Sodium Chloride (Normal Saline 0.9%) 1,000 mls @ 1,000 mls/hr IV BOLUS PRN PRN Reason: Fluid replacement Last Infusion: 03/25/22 03:47 Dose: 0 mls/hr Documented By: Infusion: 03/25/22 02:50 Dose: 1,000 mls/hr Documented By: Infusion: 03/25/22 02:20 Dose: 0 mls/hr Documented By: Admin: 03/25/22 00:54 Dose: 1,000 mls/hr Documented By: PETE Reevaluation(s) Reevaluation #1: On recheck patient is up has been ambulating, is much more clear and his mentation and speech and is able to tell me that he was trying to walk to get to the emergency department and tripped hit his head on a rock. His mentation is back at his normal baseline. Patient is requesting a cup of coffee. Reveiwed todays findings. He also states he has [facility] [place] [facility] about [facility] and is supposed to return this week to see about placement in short term housing. Time: 06:41 Vital Signs Vital signs: Vital Signs - 8 hr 03/25/22 00:25 03/25/22 01:44 03/25/22 02:00 Temperature 96.8 F L Pulse Rate 87 87 Respiratory Rate 24 Blood Pressure 138/68 127/77 Pulse Oximetry 97 98 Oxygen Delivery Method Room Air 03/25/22 02:00 03/25/22 02:30 03/25/22 02:30 Temperature Pulse Rate 92 H 85 Respiratory Rate 14 14 Blood Pressure 125/67 Pulse Oximetry 88 L 98 Oxygen Delivery Method 03/25/22 03:00 03/25/22 03:02 03/25/22 03:02 Temperature Pulse Rate 89 82 Respiratory Rate Blood Pressure 155/80 H Pulse Oximetry 97 97 Oxygen Delivery Method 03/25/22 03:30 03/25/22 05:43 Temperature Pulse Rate 93 H 96 H Respiratory Rate Blood Pressure Pulse Oximetry 97 82 L Oxygen Delivery Method MDM - Head Injury Lab Data Result diagrams: 03/25/22 00:50 03/25/22 00:50 Labs: Lab Results 03/25/22 03/25/22 03/25/22 Range/Units 00:50 00:50 00:50 WBC 9.6 (4.5-11.0) X10^3/uL RBC 4.29 L (4.5-5.9) X10^6/uL Hgb 12.7 L (13.5-17.5) g/dL Hct 38.1 L (41-53) % MCV 88.8 (80-100) fL MCH 29.6 (26-34) PG MCHC 33.4 (30-36) % RDW 15.6 H (11.6-14.8) % Plt Count 167 (150-400) X10^3/uL Neut % (Auto) 81.0 H (50-75) % Lymph % (Auto) 9.5 L (25-40) % Alexander % (Auto) 7.7 (3-14) % Eos % (Auto) 1.5 L (2-4) % Baso % (Auto) 0.3 (0-2) % Neut # (Auto) 7800 H (4914-1650) /uL Lymph # (Auto) 900 L (4692-8885) /uL Alexander # (Auto) 700 (0-900) /uL Eos # (Auto) 100 (0-450) /uL Baso # (Auto) 0 (0-100) /uL PT 11.8 (10.1-12.7) SECONDS INR 1.0 (0.9-1.3) APTT 35 (26-36) SECONDS Sodium 142 (137-145) mmol/L Potassium 3.7 (3.4-5.1) mmol/L Chloride 109 H (98-107) mmol/L Carbon Dioxide 21 L (22-32) mmol/L BUN 28 H (9-20) mg/dL Creatinine 0.90 (0.66-1.25) mg/dL Estimated GFR > 60 (>60) mL/min BUN/Creatinine Ratio 31.1 H (6-22) Glucose 101 (80-110) mg/dL Lactate (0.7-2.1) mmol/L Calcium 8.8 (8.4-10.2) mg/dL Total Bilirubin 0.5 (0.2-1.3) mg/dL AST 69 H (17-59) IU/L ALT 42 (<50) IU/L Alkaline Phosphatase 86 (38-126) U/L Ammonia (9-30) umol/L Total Creatine Kinase 696 H (55-170) U/L CK-MB (CK-2) 11.30 H (<2.37) ng/mL CK-MB (CK-2) Rel Index 1.6 (1.5-5.0) % Troponin I < 0.012 (0.01-0.034) ng/mL Total Protein 8.0 (6.3-8.2) g/dL Albumin 4.3 (3.5-5.0) g/dL Globulin 3.7 (1.7-4.1) g/dL Albumin/Globulin Ratio 1.2 (1.0-2.8) Lipase 95 (23-300) U/L Urine Color Urine Appearance Urine pH (4.5-8.0) Ur Specific [place] (1.000-1.035) Urine Protein (Negative) Urine Glucose (UA) (Negative) g/dL Urine Ketones (NEGATIVE) Urine Occult Blood (Negative) Urine Nitrate (Negative) Urine Bilirubin (NEGATIVE) Urine Urobilinogen (0.2) E.U./dL Ur Leukocyte Esterase (NEGATIVE) Urine RBC (0-5/HPF) Urine WBC (0-5/HPF) Ur Squamous Epith Cells (0-5/HPF) Ur Transition Epith Cell (0-5/HPF) Ur Renal Epithelial Cell (0-1/HPF) Urine Bacteria (None) Ur Culture Indicated? U Opiates 300ng/mL cut (Negative) Ur Oxycodone Screen (Negative) Urine Methadone Screen (Negative) Ur Barbiturates Screen (Negative) U Tricyclic Antidepress (Negative) Ur Phencyclidine Scrn (Negative) Ur Amphetamines Screen (Negative) U Methamphetamines Scrn (Negative) Ur MDMA Scrn (Ecstasy) (Negative) U Benzodiazepines Scrn (Negative) Urine Cocaine Screen (Negative) U Marijuana (THC) Screen (Negative) Ethyl Alcohol < 10 ( - 10) mg/dL SARS-CoV-2 (PCR) (Negative) Blood Type Antibody Screen 03/25/22 03/25/22 03/25/22 Range/Units 00:50 00:50 01:22 WBC (4.5-11.0) X10^3/uL RBC (4.5-5.9) X10^6/uL Hgb (13.5-17.5) g/dL Hct (41-53) % MCV (80-100) fL MCH (26-34) PG MCHC (30-36) % RDW (11.6-14.8) % Plt Count (150-400) X10^3/uL Neut % (Auto) (50-75) % Lymph % (Auto) (25-40) % Alexander % (Auto) (3-14) % Eos % (Auto) (2-4) % Baso % (Auto) (0-2) % Neut # (Auto) (3992-6781) /uL Lymph # (Auto) (6105-4388) /uL Alexander # (Auto) (0-900) /uL Eos # (Auto) (0-450) /uL Baso # (Auto) (0-100) /uL PT (10.1-12.7) SECONDS INR (0.9-1.3) APTT (26-36) SECONDS Sodium (137-145) mmol/L Potassium (3.4-5.1) mmol/L Chloride (98-107) mmol/L Carbon Dioxide (22-32) mmol/L BUN (9-20) mg/dL Creatinine (0.66-1.25) mg/dL Estimated GFR (>60) mL/min BUN/Creatinine Ratio (6-22) Glucose (80-110) mg/dL Lactate 1.0 (0.7-2.1) mmol/L Calcium (8.4-10.2) mg/dL Total Bilirubin (0.2-1.3) mg/dL AST (17-59) IU/L ALT (<50) IU/L Alkaline Phosphatase (38-126) U/L Ammonia 12 (9-30) umol/L Total Creatine Kinase (55-170) U/L CK-MB (CK-2) (<2.37) ng/mL CK-MB (CK-2) Rel Index (1.5-5.0) % Troponin I (0.01-0.034) ng/mL Total Protein (6.3-8.2) g/dL Albumin (3.5-5.0) g/dL Globulin (1.7-4.1) g/dL Albumin/Globulin Ratio (1.0-2.8) Lipase (23-300) U/L Urine Color Urine Appearance Urine pH (4.5-8.0) Ur Specific [place] (1.000-1.035) Urine Protein (Negative) Urine Glucose (UA) (Negative) g/dL Urine Ketones (NEGATIVE) Urine Occult Blood (Negative) Urine Nitrate (Negative) Urine Bilirubin (NEGATIVE) Urine Urobilinogen (0.2) E.U./dL Ur Leukocyte Esterase (NEGATIVE) Urine RBC (0-5/HPF) Urine WBC (0-5/HPF) Ur Squamous Epith Cells (0-5/HPF) Ur Transition Epith Cell (0-5/HPF) Ur Renal Epithelial Cell (0-1/HPF) Urine Bacteria (None) Ur Culture Indicated? U Opiates 300ng/mL cut (Negative) Ur Oxycodone Screen (Negative) Urine Methadone Screen (Negative) Ur Barbiturates Screen (Negative) U Tricyclic Antidepress (Negative) Ur Phencyclidine Scrn (Negative) Ur Amphetamines Screen (Negative) U Methamphetamines Scrn (Negative) Ur MDMA Scrn (Ecstasy) (Negative) U Benzodiazepines Scrn (Negative) Urine Cocaine Screen (Negative) U Marijuana (THC) Screen (Negative) Ethyl Alcohol ( - 10) mg/dL SARS-CoV-2 (PCR) (Negative) Blood Type O Positive Antibody Screen Negative 03/25/22 03/25/22 03/25/22 Range/Units 01:27 03:01 03:30 WBC (4.5-11.0) X10^3/uL RBC (4.5-5.9) X10^6/uL Hgb (13.5-17.5) g/dL Hct (41-53) % MCV (80-100) fL MCH (26-34) PG MCHC (30-36) % RDW (11.6-14.8) % Plt Count (150-400) X10^3/uL Neut % (Auto) (50-75) % Lymph % (Auto) (25-40) % Alexander % (Auto) (3-14) % Eos % (Auto) (2-4) % Baso % (Auto) (0-2) % Neut # (Auto) (3141-0778) /uL Lymph # (Auto) (4602-9357) /uL Alexander # (Auto) (0-900) /uL Eos # (Auto) (0-450) /uL Baso # (Auto) (0-100) /uL PT (10.1-12.7) SECONDS INR (0.9-1.3) APTT (26-36) SECONDS Sodium (137-145) mmol/L Potassium (3.4-5.1) mmol/L Chloride (98-107) mmol/L Carbon Dioxide (22-32) mmol/L BUN (9-20) mg/dL Creatinine (0.66-1.25) mg/dL Estimated GFR (>60) mL/min BUN/Creatinine Ratio (6-22) Glucose (80-110) mg/dL Lactate (0.7-2.1) mmol/L Calcium (8.4-10.2) mg/dL Total Bilirubin (0.2-1.3) mg/dL AST (17-59) IU/L ALT (<50) IU/L Alkaline Phosphatase (38-126) U/L Ammonia (9-30) umol/L Total Creatine Kinase (55-170) U/L CK-MB (CK-2) (<2.37) ng/mL CK-MB (CK-2) Rel Index (1.5-5.0) % Troponin I < 0.012 (0.01-0.034) ng/mL Total Protein (6.3-8.2) g/dL Albumin (3.5-5.0) g/dL Globulin (1.7-4.1) g/dL Albumin/Globulin Ratio (1.0-2.8) Lipase (23-300) U/L Urine Color Yellow Urine Appearance Clear Urine pH 5.0 (4.5-8.0) Ur Specific [place] 1.025 (1.000-1.035) Urine Protein Negative (Negative) Urine Glucose (UA) Negative (Negative) g/dL Urine Ketones 1+ H (NEGATIVE) Urine Occult Blood Trace-intact (Negative) Urine Nitrate Negative (Negative) Urine Bilirubin Negative (NEGATIVE) Urine Urobilinogen 0.2 (0.2) E.U./dL Ur Leukocyte Esterase Negative (NEGATIVE) Urine RBC 1-5/hpf (0-5/HPF) Urine WBC None seen (0-5/HPF) Ur Squamous Epith Cells 0-1 /hpf (0-5/HPF) Ur Transition Epith Cell 1-5/hpf (0-5/HPF) Ur Renal Epithelial Cell 0-1/hpf (0-1/HPF) Urine Bacteria None seen (None) Ur Culture Indicated? Cult not indicated U Opiates 300ng/mL cut (Negative) Ur Oxycodone Screen (Negative) Urine Methadone Screen (Negative) Ur Barbiturates Screen (Negative) U Tricyclic Antidepress (Negative) Ur Phencyclidine Scrn (Negative) Ur Amphetamines Screen (Negative) U Methamphetamines Scrn (Negative) Ur MDMA Scrn (Ecstasy) (Negative) U Benzodiazepines Scrn (Negative) Urine Cocaine Screen (Negative) U Marijuana (THC) Screen (Negative) Ethyl Alcohol ( - 10) mg/dL SARS-CoV-2 (PCR) Negative (Negative) Blood Type Antibody Screen 03/25/22 Range/Units 03:30 WBC (4.5-11.0) X10^3/uL RBC (4.5-5.9) X10^6/uL Hgb (13.5-17.5) g/dL Hct (41-53) % MCV (80-100) fL MCH (26-34) PG MCHC (30-36) % RDW (11.6-14.8) % Plt Count (150-400) X10^3/uL Neut % (Auto) (50-75) % Lymph % (Auto) (25-40) % Alexander % (Auto) (3-14) % Eos % (Auto) (2-4) % Baso % (Auto) (0-2) % Neut # (Auto) (9659-5297) /uL Lymph # (Auto) (1041-0437) /uL Alexander # (Auto) (0-900) /uL Eos # (Auto) (0-450) /uL Baso # (Auto) (0-100) /uL PT (10.1-12.7) SECONDS INR (0.9-1.3) APTT (26-36) SECONDS Sodium (137-145) mmol/L Potassium (3.4-5.1) mmol/L Chloride (98-107) mmol/L Carbon Dioxide (22-32) mmol/L BUN (9-20) mg/dL Creatinine (0.66-1.25) mg/dL Estimated GFR (>60) mL/min BUN/Creatinine Ratio (6-22) Glucose (80-110) mg/dL Lactate (0.7-2.1) mmol/L Calcium (8.4-10.2) mg/dL Total Bilirubin (0.2-1.3) mg/dL AST (17-59) IU/L ALT (<50) IU/L Alkaline Phosphatase (38-126) U/L Ammonia (9-30) umol/L Total Creatine Kinase (55-170) U/L CK-MB (CK-2) (<2.37) ng/mL CK-MB (CK-2) Rel Index (1.5-5.0) % Troponin I (0.01-0.034) ng/mL Total Protein (6.3-8.2) g/dL Albumin (3.5-5.0) g/dL Globulin (1.7-4.1) g/dL Albumin/Globulin Ratio (1.0-2.8) Lipase (23-300) U/L Urine Color Urine Appearance Urine pH (4.5-8.0) Ur Specific [place] (1.000-1.035) Urine Protein (Negative) Urine Glucose (UA) (Negative) g/dL Urine Ketones (NEGATIVE) Urine Occult Blood (Negative) Urine Nitrate (Negative) Urine Bilirubin (NEGATIVE) Urine Urobilinogen (0.2) E.U./dL Ur Leukocyte Esterase (NEGATIVE) Urine RBC (0-5/HPF) Urine WBC (0-5/HPF) Ur Squamous Epith Cells (0-5/HPF) Ur Transition Epith Cell (0-5/HPF) Ur Renal Epithelial Cell (0-1/HPF) Urine Bacteria (None) Ur Culture Indicated? U Opiates 300ng/mL cut Negative (Negative) Ur Oxycodone Screen Negative (Negative) Urine Methadone Screen Negative (Negative) Ur Barbiturates Screen Negative (Negative) U Tricyclic Antidepress Negative (Negative) Ur Phencyclidine Scrn Negative (Negative) Ur Amphetamines Screen Negative (Negative) U Methamphetamines Scrn Negative (Negative) Ur MDMA Scrn (Ecstasy) Negative (Negative) U Benzodiazepines Scrn Negative (Negative) Urine Cocaine Screen Negative (Negative) U Marijuana (THC) Screen Negative (Negative) Ethyl Alcohol ( - 10) mg/dL SARS-CoV-2 (PCR) (Negative) Blood Type Antibody Screen Point of Care Testing Glucose POC [address] scan - head: Radiologist's Impression: Close Pelvis X-Ray (Signed) Ania,Reji - 03/25/[address] (Signed) Jorge,Reji - 03/25/22 Chest X-Ray (Signed) Jorge,Reji - 03/25/[address] (Signed) Jorge,Reji - 03/25/22 Chest X-Ray (Signed) Jorge,Reji - 03/22/22 Cervical Spine X-Ray (Signed) Reji Jorge - 03/22/22 Knee X-Ray (Signed) Prateek Jorge - 03/15/22 Knee X-Ray (Signed) Prateek Jorge - 03/15/22 Cervical Spine X-Ray (Signed) Prateek Jorge - 03/15/[address] (Signed) Herlinda Farley - 11/20/[address] (Signed) Herlinda Farley - 11/20/[address] (Signed) Gary Doherty - 10/17/[address] (Signed) Bessy,Gary - 10/17/[address] (Signed) Brodie Rebolledo - 05/30/[address] (Signed) Brodie Rebolledo - 05/30/20 Hand X-Ray (Signed) Herve Morris - 11/14/19 Chest X-Ray (Signed) Herlinda Farley - 06/17/19 Telemetry Strips 11/10/[address] (Signed) Herlinda Farley - 11/10/17 Chest/Abdomen/Pelvis CTA (Signed) Hector Azar - 11/10/17 Echocardiogram Ultrasound (Signed) Maya Álvarez - 11/10/17 Launch?Image [address] [address] [address] Scan Report Signed Patient: Jacobo Dash MR#: [id number] : 1955 Acct:[id number] Age/Sex: 66 / M Date of Service: 03/25/22 Loc: ED Accession Number: [id number] ?? Procedure: CT head/brain wo con Ordering Provider: Estela Ba D.O. PROCEDURE:? CT HEAD/BRAIN WO CON ? INDICATIONS:? Trauma ? TECHNIQUE:? Noncontrast 4.5 mm thick angled axial sections acquired from the foramen magnum to the vertex, with coronal and sagittal reformats.? For radiation dose reduction, the following was used:? automated exposure control, adjustment of mA and/or kV according to patient size.? ? COMPARISON:? [facility], CT, CT HEAD/BRAIN WO CON, 11/20/2021, 5:12. ? FINDINGS:? Image quality:? There is mild motion artifact.? ? CSF spaces:? Basal cisterns are patent.? No extra-axial fluid collections.? Ventricles are normal in size and shape.? ? Brain:? No definite intracranial hemorrhage, mass, or mass effect.? Vick-white matter interface appears preserved.? ? Skull and face:? Calvarium and visualized facial bones are intact, without suspicious lesions.? ? Sinuses:? Visualized sinuses and mastoids are clear.? ? IMPRESSION:? ? 1. No definite acute intracranial abnormality.? ? ? Dictated by: Reji Jorge M.D. on 03/25/2022 at 1:42 ? ? Approved by: Reji Jorge M.D. on 03/25/2022 at 1:43?? CT - cervical spine: Radiologist's Impression: [address] [address] [address] Scan Report Signed Patient: Jacobo Dash MR#: [id number] : 1955 Acct:[id number] Age/Sex: 66 / M Date of Service: 03/25/22 Loc: ED Accession Number: [id number] ?? Procedure: CT cervical spine wo con Ordering Provider: Estela Ba D.O. PROCEDURE:? CT CERVICAL SPINE WO CON ? INDICATIONS:? Trauma ? TECHNIQUE:? Noncontrast 3 mm thick sections acquired from the skull base to the T4 level.? Sagittal and coronal reformats were then constructed.? For radiation dose reduction, the following was used:? automated exposure control, adjustment of mA and/or kV according to patient size.? ? COMPARISON:? [facility], CT, CT CERVICAL SPINE WO CON, 11/20/2021, 5:12. ? FINDINGS:? Image quality:? There is mild motion artifact limiting evaluation.? ? Bones:? No fractures or subluxation.? There are postsurgical changes status post ACDF and posterior fixation at C5-C7 redemonstrated.? Surgical hardware appears intact.? No new associated suspicious lucencies.? There is anterolisthesis at C3-C4 measuring approximately 0.5 cm which appears similar to the prior study.? There is also minimal anterolisthesis at C4-C5 as well as T1-T2 redemonstrated.? There is multilevel degenerative disc disease and facet joint arthropathy redemonstrated.? Visualized superior ribs are intact.? ? Soft tissues:? Prevertebral soft tissues are normal in thickness.? No paravertebral hematomas.? No apical pneumothoraces.? ? ? IMPRESSION:? ? 1. No acute fracture or subluxation. ? 2. Postsurgical changes redemonstrated at C5-C7.? No definite evidence of hardware failure. ? 3. Mild multilevel anterolisthesis appears similar to the prior study. ? Dictated by: Reji Jorge M.D. on 03/25/2022 at 1:43 ? ? Approved by: Reji Jorge M.D. on 03/25/2022 at 1:49?? Chest x-ray: Radiologist's Impression: [address] [address] XRay Report Signed Patient: Jacobo Dash MR#: [id number] : 1955 Acct:[id number] Age/Sex: 66 / M Date of Service: 03/25/22 Loc: ED Accession Number: [id number] ?? Procedure: XR chest 1V Ordering Provider: Estela Ba D.O. PROCEDURE:? XR CHEST 1V ? INDICATIONS:? abrasion head, altered from usual ? TECHNIQUE:? One view of the chest was acquired.? ? COMPARISON:? [facility], , XR CHEST 1V, 03/22/2022, 0:34. ? FINDINGS:? ? Surgical changes and devices:? None.? ? Lungs and pleura:? There are low lung volumes.? Pulmonary vascular prominence is noted suggestive of vascular crowding, versus mild pulmonary edema.? No pleural effusions or pneumothorax.? ? Mediastinum:? Mediastinal contours appear normal.? Heart size is normal.? ? Bones and chest wall:? There are multiple healed left posterior rib fractures redemonstrated.? No suspicious bony lesions.? Overlying soft tissues appear unremarkable. ? ? IMPRESSION:? ? 1. Low lung volumes with pulmonary vascular prominence suggestive of vascular crowding, versus mild pulmonary edema. ? ? Dictated by: Reji Jorge M.D. on 03/25/2022 at 1:59 ? ? Approved by: Reji Jorge M.D. on 03/25/2022 at 2:00?? pelvic xray: Radiologist's Impression: [facility] [address] [place] [id number] XRay Report Signed Patient: Jacobo Dash MR#: [id number] : 1955 Acct:[id number] Age/Sex: 66 / M Date of Service: 03/25/22 Loc: ED Accession Number: [id number] ?? Procedure: XR pelvis 1-2V Ordering Provider: Estela Ba D.O. PROCEDURE:? XR PELVIS 1-2V ? INDICATIONS:? abrasion head, altered from usual ? TECHNIQUE:? Single-view of the pelvis acquired.? ? COMPARISON:? None. ? FINDINGS:? ? Bones:? No displaced fractures or dislocations, with evaluation of the right hip limited by projection.? No suspicious bony lesions.? ? Soft tissues:? Visualized bowel gas pattern is normal.? No suspicious soft tissue calcifications.? ? IMPRESSION:? ? 1. No definite displaced fracture or dislocation.? However, evaluation of the right hip is limited due to projection and if clinical concern persists, consider additi onal dedicated right hip images or further evaluation with CT.? ? ? Dictated by: Reji Jorge M.D. on 03/25/2022 at 1:58 ? ? Approved by: Reji Jorge M.D. on 03/25/2022 at 1:59?? ECG Data Attestation: I personally reviewed and interpreted this ECG as follows: Prior ECG tracings: available for review Interpretation: Sinus rhythm with premature atrial complex, rate of 97 QRS is 70, SC [address]. No acute ST elevation depression noted. Patient has prior from 03/22/2022 with no acute changes. MDM Narrative Medical decision making narrative: This is a 66-year-old male well-known to the department who does seem more altered. Patient does have a history of drug abuse and possibly some mental health disorder. He is homeless and presents with an abrasion on his forehead, he seems to be confused from his normal baseline and unable to get a clear story. Head CT, C-spine, additional imaging and labs do not show any significant changes. Patient was observed here in the department and after a period of sleeping patient is much more alert, appropriate and at his normal baseline. He or altered in any way, UDS was negative there may be some other drug on board but suspect patient may have concussion and possibly intoxication as well although etoh and UDS are negative today. Patient is ambulating appropriately in the department. No other acute medical cause is found for admission or observation and patient felt appropriate for discharge. We did discuss he has been to the [facility] to sign up for housing. He states he is supposed to return this week to follow-up on this. Discharge Plan Departure Patient Disposition: Home Clinical Impression: Head injury, Abrasion of forehead, Concussion Instructions: Concussion Activity Restrictions/Additional Instructions: Your workup today was reassuring. Please return for new or concerning symptoms, you confusion, new chest pain or shortness of breath, numbness tingling or weakness, persistent vomiting or other new or concerning changes. Prescriptions: No Action metformin 1,000 mg tablet 1,000 mg PO BID naloxone 4 mg/actuation spray,non-aerosol 1 dose Intranasal DIRECTED Label Comments: instill 1 spray in 1 NOSTRIL if needed for opioid overdose may re...(REFER TO PRESCRIPTION NOTES). tamsulosin 0.4 mg capsule,extended release 24hr 0.8 mg PO DAILY olanzapine 10 mg tablet 10 mg PO BID Label Comments: take 1 tablet by mouth twice a day Pain Medication 1 dose PO DIRECTED Label Comments: patient states he gets pain medication (along with Alprazolam) from mental health pharmacy in [facility] but ran out of both. does not recall name of med aspirin 325 mg Tablet,Delayed Release (Dr/Ec) 325 mg PO DAILY Qty: 90 0RF nitroglycerin [Nitrostat] 0.4 mg Tablet, Sublingual 0.4 mg Sublingual [id number] PRN (Reason: Chest Pain) Qty: 1 0RF alprazolam [Xanax] 1 mg tablet 1 mg PO BID PRN (Reason: anxiety) Qty: 14 0RF hydroxyzine HCl 25 mg tablet 25 mg PO Q8H PRN (Reason: Itching) Label Comments: take 1 tablet by mouth every 8 hours if needed for itching FOR UP TO 10 DAYS doxycycline hyclate 100 mg tablet 100 mg PO BID Qty: 20 0RF ondansetron 4 mg tablet,disintegrating 4 mg PO Q8H PRN (Reason: nausea and vomiting) Qty: 10 0RF cyclobenzaprine 5 mg tablet 5 mg PO TID PRN (Reason: muscle spasm) Qty: 10 0RF lidocaine [Lidoderm] 5 % adhesive patch,medicated 2 patch TOP DAILY Qty: 30 0RF Rx Instructions: leave on most painful area for up to 12 hrs daily metoprolol tartrate 50 mg tablet 50 mg PO BID Label Comments: take 1 tablet by mouth twice a day Referrals: Jacky Rios MD [Primary Care Provider] - Visit Report Forms: Patient Portal/API
[2022-03-25] MEDS: SODIUM CHLORIDE 0.9% 1,000 ML 1000 ML IV (00:54)
[2022-03-25 01:01] LABS: Add Manual Diff / Slide Review NO; Basophils Absolute Auto 0 /uL (0-100); Basophils Percent Auto 0.3 % (0-2); Eosinophils Absolute Auto 100 /uL (0-450); Eosinophils Percent Auto 1.5 % (2-4); Hematocrit 38.1 % (41-53); Hemoglobin 12.7 g/dL (13.5-17.5); Lymphocytes Absolute Auto 900 /uL (1100-4500); Lymphocytes Percent Auto 9.5 % (25-40); Mean Corpuscular HGB Conc 33.4 % (30-36); Mean Corpuscular Hemoglobin 29.6 PG (26-34); Mean Corpuscular Volume 88.8 fL (80-100); Monocytes Absolute Auto 700 /uL (0-900); Monocytes Percent Auto 7.7 % (3-14); Neutrophils Absolute Auto 7800 /uL (1500-7000); Platelet Count 167 X10^3/uL (150-400); Red Blood Cell Count 4.29 X10^6/uL (4.5-5.9); Red Cell Distribution Width 15.6 % (11.6-14.8); White Blood Cell Count 9.6 X10^3/uL (4.5-11.0)
[2022-03-25 01:06] LABS: Prothrombin Time 11.8 SECONDS (10.1-12.7)
[2022-03-25 01:08] LABS: Ammonia (NH3) 12 umol/L (9-30); PTT Partial Thromboplastin Tim 35 SECONDS (26-36)
[2022-03-25 01:10] LABS: Alanine Aminotransferase 42 IU/L (<50); Albumin 4.3 g/dL (3.5-5.0); Albumin Globulin Ratio 1.2 (1.0-2.8); Alkaline Phosphatase 86 U/L (38-126); Aspartate Aminotransferase 69 IU/L (17-59); BUN Creatinine Ratio 31.1 (6-22); Bilirubin Total 0.5 mg/dL (0.2-1.3); Blood Urea Nitrogen 28 mg/dL (9-20); Calcium 8.8 mg/dL (8.4-10.2); Carbon Dioxide 21 mmol/L (22-32); Chloride 109 mmol/L (98-107); Creatine Kinase 696 U/L (55-170); Estimated Glomerular Filt Rate > 60 mL/min (>60); Ethanol (ETOH) < 10 mg/dL; Globulin 3.7 g/dL (1.7-4.1); Glucose 101 mg/dL (80-110); HEMOLYSIS < 15 (0-50); Lipase 95 U/L (23-300); Potassium 3.7 mmol/L (3.4-5.1); Sodium 142 mmol/L (137-145)
[2022-03-25 01:24] LABS: Troponin I < 0.012 ng/mL (0.01-0.034)
[2022-03-25 01:25] LABS: CKMB % Relative Index 1.6 % (1.5-5.0)
[2022-03-25 01:48] LABS: COVID19 -Nasal RAPID Negative (Negative)
[2022-03-25 03:30] LABS: Troponin I < 0.012 ng/mL (0.01-0.034)
--- NOTE | 2022-03-25 03:33 | PC.NURSE ---
cath urine specimen obtained and sent to lab
[2022-03-25 03:39] LABS: Appearance Urine UA CLEAR; Bilirubin Urine UA NEGATIVE (NEGATIVE); Color Urine UA YELLOW; Glucose Urine UA NEGATIVE (Negative); Ketones Urine UA 1+ (NEGATIVE); Leukocyte Esterase Urine UA NEGATIVE (NEGATIVE); Nitrite Urine UA NEGATIVE (Negative); Occult Blood Urine UA TRACE-INTACT (Negative); Protein Urine UA NEGATIVE (Negative); Specific Gravity Urine UA 1.025 (1.000-1.035); Urobilinogen Urine UA 0.2 E.U./dL (0.2)
[2022-03-25 03:43] LABS: Ur Creatinine Normal (Normal); Ur Specific Gravity Normal (Normal); Urine pH Normal (Normal)
[2022-03-25 03:44] LABS: UR Morphine/Opiate cutoff 300 Negative (Negative); Urine Amphetamines Negative (Negative); Urine Barbiturates Negative (Negative); Urine Benzodiazepines Negative (Negative); Urine Cocaine Negative (Negative); Urine MDMA Negative (Negative); Urine Methadone Negative (Negative); Urine Methamphetamines Negative (Negative); Urine Oxycodone Negative (Negative); Urine Phencyclidine Negative (Negative); Urine Tetrahydrocannabinol Negative (Negative); Urine Tricyclic Antidepressant Negative (Negative)
[2022-03-25 03:48] LABS: Bacteria Urine None Seen; Culture Indicated Urine Cult Not Indicated; RBC Urine 1-5/HPF (0-5/HPF); Renal Epithelial Cells Urine 0-1/HPF (0-1/HPF); Squamous Epithelial Cell Urine 0-1 /HPF (0-5/HPF); Transitional Epi Cells Urine 1-5/HPF (0-5/HPF); WBC Urine None Seen (0-5/HPF)
--- NOTE | 2022-03-25 06:37 | PC.NURSE ---
pt wakened up getting dressed without assistance
== END 2022-03-25 07:15 | disposition home or self-care (01) ==
PROVIDERS: Emergency Provider Emergency Medicine; PCP Family Medicine
DX: S06.0X0A Concussion without loss of consciousness, initial encounter (principal); S00.81XA Abrasion of other part of head, initial encounter; W01.198A Fall on same level from slipping, tripping and stumbling with subsequent striking against other object, initial encounter; Z20.822 Contact with and (suspected) exposure to COVID-19
CPT/HCPCS: 36415; 70450; 71045; 72125; 72170; 80053; 80305; 80320; 81001; 82140; 82550; 82553; 82962; 83605; 83690; 84484; 85025; 85610; 85730; 86850; 86900; 86901; 87040; 87635; 93005; 99284; C9803

== ENCOUNTER 2022-04-17 20:57 | Emergency (ER) | payer MEDICAID, SELFPAY ==
[2017-11-10 08:47] VITALS: BMI 22.8
[2022-04-17 21:02] VITALS: BP 152/84; PULSE 102; RESP 20; TEMP 36.6; O2SAT 99; BMI 27.6
--- NOTE | 2022-04-17 21:16 | ED.EXTPRO ---
HPI - Extremity Problem General Chief complaint: Extremity Problem,Nontraumatic Stated complaint: Has worms on both feet Time Seen by Provider: 04/17/22 21:01 Source: patient Mode of arrival: Ambulatory History of Present Illness HPI Narrative: 66-year-old male with history of IV drug abuse presents for evaluation of worms in his feet. States that he has some redness in between his toes and is convinced that there is a worm infestation of his feet. He states he's ahd some redness between his toes but is certain that worms were crawling around. He denies any pain. He has no fever or chills. He denies chest pain or SOB. He admits to use of methamphetamines. He is otherwise well and free of complaint. Related Data Home Medications Medication Instructions Recorded Confirmed Pain Medication 1 dose PO DIRECTED 11/10/17 11/10/17 metformin 1,000 mg tablet 1,000 mg PO BID 11/10/17 07/12/19 naloxone 4 mg/actuation nasal spray 1 dose intranasal DIRECTED 11/10/17 03/09/18 olanzapine 10 mg tablet 10 mg PO BID 11/10/17 08/21/18 tamsulosin 0.4 mg capsule 0.8 mg PO DAILY 11/10/17 07/12/19 metoprolol tartrate 50 mg tablet 50 mg PO BID 06/17/19 07/12/19 hydroxyzine HCl 25 mg tablet 25 mg PO Q8H PRN Itching 07/12/19 07/12/19 Previous Rx's Medication Instructions Recorded alprazolam 1 mg tablet (Xanax) 1 mg PO BID PRN anxiety #14 tabs 11/11/17 aspirin 325 mg tablet,delayed 325 mg PO DAILY #90 tabs 11/11/17 release nitroglycerin 0.4 mg sublingual 0.4 mg sublingual [id number] PRN 11/11/17 tablet (Nitrostat) Chest Pain #1 tab lidocaine 5 % topical patch 2 patch topical DAILY #30 ea 04/15/19 (Lidoderm) doxycycline hyclate 100 mg tablet 100 mg PO BID #20 tabs 11/14/19 cyclobenzaprine 5 mg tablet 5 mg PO TID PRN muscle spasm #10 05/30/20 tabs ondansetron 4 mg disintegrating 4 mg PO Q8H PRN nausea and 05/30/20 tablet vomiting #10 tabs doxycycline hyclate 100 mg tablet 100 mg PO BID #20 tabs 04/17/22 Allergies Allergy/AdvReac Type Severity Reaction Status Date / Time baclofen [BACLOFEN] Allergy Intermediate REACTS TO Verified 03/13/22 14:54 HIS METFORMIN ketorolac [From TORADOL] Allergy Intermediate HIVES Verified 03/13/22 14:54 Review of Systems Review of Systems Narrative: GENERAL: Denies chills, fatigue, malaise, fever, sweats. HEENT: Denies sinus pain, ear pain, sore throat, difficulty swallowing, dizziness. RESPIRATORY: Denies dyspnea, cough, wheezing, hemoptysis, sputum. CARDIOVASCULAR: Denies chest pain, palpitations, orthopnea, edema, GASTROINTESTINAL: Denies nausea, vomiting, abdominal pain, diarrhea, constipation, melena. : Denies dysuria, frequency, incontinence, hematuria, urinary retention. MUSCULOSKELETAL: denies weakness, joint pain, or bony pain SKIN: Denies rash, skin lesions, or other NEUROLOGIC: Denies weakness, headache, numbness, change in speech, confusion, seizures, incoordination. PSYCHIATRIC: No concerning psychosocial issues. 12 point review of systems is negative except for those stated above Patient History Medical History (Updated 04/17/22 @ 21:21 by Bartolo Mitchell DO) Back pain Heroin abuse Heroin addiction Surgical History History of fusion of cervical spine History of lumbar fusion Social History household members: spouse Smoking Status: Current every day smoker alcohol intake: former Smoking Status: Current every day smoker tobacco type: cigarettes alcohol intake frequency: 0-2 drinks per day Substance Use Type: marijuana, heroin and methamphetamine Exam Narrative Exam Narrative: GEN: AOx3 and in mild distress EYES: Pupils are equal, round, and reactive to light and accommodation. Extraoccular muscles are intact bilaterally. There is no subconjunctival hemorrhage or exudate. CHEST: Lungs are clear to auscultation bilaterally and free of wheezes, rales, or rhonchi. Heart rate is regular rhythm, there are no murmurs, clicks, rubs, or gallops. There is no chest wall tenderness. ABD: Abdomen is soft and nontender. There is no guarding or rebound. Bowel sounds are normal in all 4 quadrants. There is no mass or organomegaly. EXT: There is some erythema and scaling between his toes, no obvious breaks in the skin, bleeding, drainage. No induration or fluctuance, sensation and pulses intact. No evidence of any worms SKIN: Warm, pink, and dry. No erythema or rash Initial Vital Signs Initial Vital Signs: Vital Signs Temperature 97.8 F 04/17/22 21:02 Pulse Rate 102 H 04/17/22 21:02 Respiratory Rate 20 04/17/22 21:02 Blood Pressure 152/84 H 04/17/22 21:02 Pulse Oximetry 99 04/17/22 21:02 Oxygen Delivery Method 04/17/22 21:02 Course Orders Ordered: ED Orders 04/17/22 21:09 Consult to [employer] - [employer]er Tailer Stat Discontinued Medications Doxycycline Hyclate (Doxycycline Hyclate 100 Mg Tablet) 100 mg PO NOW ONE Stop: 04/17/22 21:19 Last Admin: 04/17/22 21:26 Dose: 100 mg Documented By: ADK Vital Signs Vital signs: Vital Signs - 8 hr 04/17/22 21:02 04/17/22 21:40 Temperature 97.8 F Pulse Rate 102 H Respiratory Rate 20 Blood Pressure 152/84 H 132/77 Pulse Oximetry 99 98 Oxygen Delivery Method Room Air Room Air MDM - Extremity (Nontraumatic) MDM Narrative Medical decision making narrative: Patient with reassuring physical exam, no evidence any worm infestation, this certainly seems most likely a consequence of his methamphetamine history. History and physical do suggest the possibility of tinea pedis and possible minor, early bacterial superinfection. Patient given return precautions, instructions for obtaining athlete's foot medication at pharmacy, 1st dose of doxycycline given and prescription sent to his pharmacy. Return precautions discussed and questions answered to his apparent satisfaction Discharge Plan Departure Patient Disposition: Home Clinical Impression: Cellulitis of foot, Athletes foot Instructions: DI for Cellulitis -- Adult Activity Restrictions/Additional Instructions: *You have been diagnosed with [athlete's foot and possible early cellulitis of both feet] *What to do: *Please continue to take your regular medications as directed. You will also benefit from an over the counter Athlete's Foot medication from the pharmacy when you get your precscription [ x] New medication prescriptions sent to your pharmacy: [[facility] ] [ ] New medication written as a paper prescription [ ] No new medications given *Please follow up with your primary care provider in 2-3 days, call for an appointment. Let them know you were seen in the Emergency Department and that we ask that you be seen in follow up. We will electronically transmit a record of today's note if your PCP is in our system *If you do not have a primary care provider please contact the [facility] Resource line at [phone]. They will ask some questions about your medical history and help get you set up with a doctor in the community. *Return to Emergency Department if you should have any new, worsening or concerning symptoms, such as [fever greater than 101 F, shaking chills, worsening pain, persistent vomiting or other bothersome symptoms] Prescriptions: New doxycycline hyclate 100 mg tablet 100 mg PO BID Qty: 20 0RF No Action metformin 1,000 mg tablet 1,000 mg PO BID naloxone 4 mg/actuation spray,non-aerosol 1 dose Intranasal DIRECTED Label Comments: instill 1 spray in 1 NOSTRIL if needed for opioid overdose may re...(REFER TO PRESCRIPTION NOTES). tamsulosin 0.4 mg capsule,extended release 24hr 0.8 mg PO DAILY olanzapine 10 mg tablet 10 mg PO BID Label Comments: take 1 tablet by mouth twice a day Pain Medication 1 dose PO DIRECTED Label Comments: patient states he gets pain medication (along with Alprazolam) from mental health pharmacy in [facility] but ran out of both. does not recall name of med aspirin 325 mg Tablet,Delayed Release (Dr/Ec) 325 mg PO DAILY Qty: 90 0RF nitroglycerin [Nitrostat] 0.4 mg Tablet, Sublingual 0.4 mg Sublingual [id number] PRN (Reason: Chest Pain) Qty: 1 0RF alprazolam [Xanax] 1 mg tablet 1 mg PO BID PRN (Reason: anxiety) Qty: 14 0RF hydroxyzine HCl 25 mg tablet 25 mg PO Q8H PRN (Reason: Itching) Label Comments: take 1 tablet by mouth every 8 hours if needed for itching FOR UP TO 10 DAYS doxycycline hyclate 100 mg tablet 100 mg PO BID Qty: 20 0RF ondansetron 4 mg tablet,disintegrating 4 mg PO Q8H PRN (Reason: nausea and vomiting) Qty: 10 0RF cyclobenzaprine 5 mg tablet 5 mg PO TID PRN (Reason: muscle spasm) Qty: 10 0RF lidocaine [Lidoderm] 5 % adhesive patch,medicated 2 patch TOP DAILY Qty: 30 0RF Rx Instructions: leave on most painful area for up to 12 hrs daily metoprolol tartrate 50 mg tablet 50 mg PO BID Label Comments: take 1 tablet by mouth twice a day Referrals: Jacky Rios MD [Primary Care Provider] - Visit Report Forms: Patient Portal/API
[2022-04-17] MEDS: DOXYCYCLINE HYCLATE 100 MG TABLET PO (21:26)
[2022-04-17 21:40] VITALS: BP 132/77; O2SAT 98
== END 2022-04-17 21:41 | disposition home or self-care (01) ==
PROVIDERS: Emergency Provider Emergency Medicine; PCP Family Medicine
DX: L03.116 Cellulitis of left lower limb (principal); L03.115 Cellulitis of right lower limb; B35.3 Tinea pedis
CPT/HCPCS: 99283

== ENCOUNTER 2022-11-05 12:16 | Emergency (ER) | payer MEDICARE, MEDICAID, SELFPAY ==
[2017-11-10 08:47] VITALS: BMI 22.8
[2022-11-05 12:19] VITALS: BP 150/86; PULSE 94; RESP 15; TEMP 36.1; O2SAT 97; BMI 22.8
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
[2022-11-05 13:25] VITALS: BP 132/88; PULSE 78; RESP 16; TEMP 36.6; O2SAT 97
--- NOTE | 2022-11-05 13:33 | ED_ITS ---
HPI - Back Pain/Injury <Kimmie Sapp PA-C - Last Filed: 11/05/22 17:23> General Chief Complaint: Back Pain/Injury Stated Complaint: neck/back locking up; memory prob.; big toes R&L Time Seen by Provider: 11/05/22 13:03 Source: patient History of Present Illness HPI Narrative: 67-year-old male with chronic neck pain, history of IV drug abuse presents to the ED with worsening neck pain, wounds on his bilateral forearms and a right toe injury. Patient denies numbness, tingling, weakness. Patient denies any new trauma. Patient denies fever, chills, nausea, vomiting. Patient denies any pain or discharge from the wounds. Related Data Home Medications Medication Instructions Recorded Confirmed Pain Medication 1 dose PO DIRECTED 11/10/17 11/10/17 metformin 1,000 mg tablet 1,000 mg PO BID 11/10/17 07/12/19 naloxone 4 mg/actuation nasal spray 1 dose intranasal DIRECTED 11/10/17 03/09/18 olanzapine 10 mg tablet 10 mg PO BID 11/10/17 08/21/18 tamsulosin 0.4 mg capsule 0.8 mg PO DAILY 11/10/17 07/12/19 metoprolol tartrate 50 mg tablet 50 mg PO BID 06/17/19 07/12/19 hydroxyzine HCl 25 mg tablet 25 mg PO Q8H PRN Itching 07/12/19 07/12/19 Previous Rx's Medication Instructions Recorded alprazolam 1 mg tablet (Xanax) 1 mg PO BID PRN anxiety #14 tabs 11/11/17 aspirin 325 mg tablet,delayed 325 mg PO DAILY #90 tabs 11/11/17 release nitroglycerin 0.4 mg sublingual 0.4 mg sublingual [id number] PRN 11/11/17 tablet (Nitrostat) Chest Pain #1 tab lidocaine 5 % topical patch 2 patch topical DAILY #30 ea 04/15/19 (Lidoderm) doxycycline hyclate 100 mg tablet 100 mg PO BID #20 tabs 11/14/19 cyclobenzaprine 5 mg tablet 5 mg PO TID PRN muscle spasm #10 05/30/20 tabs ondansetron 4 mg disintegrating 4 mg PO Q8H PRN nausea and 05/30/20 tablet vomiting #10 tabs doxycycline hyclate 100 mg tablet 100 mg PO BID #20 tabs 04/17/22 benzonatate 200 mg capsule 200 mg PO TID PRN cough #15 caps 11/05/22 Allergies Allergy/AdvReac Type Severity Reaction Status Date / Time baclofen [BACLOFEN] Allergy Intermediate REACTS TO Verified 11/05/22 12:19 HIS METFORMIN ketorolac [From TORADOL] Allergy Intermediate HIVES Verified 11/05/22 12:19 Review of Systems <Kimmie Sapp PA-C - Last Filed: 11/05/22 17:23> Review of Systems ROS Unobtainable: All systems reviewed & are unremarkable except as noted in HPI and below Constitutional Constitutional: Denies chills, Denies fatigue, Denies fever(s), Denies frequent falls, Denies lethargy and Denies weakness Eyes Eyes: Denies change in vision, Denies eye discharge, Denies irritation and Denies loss of vision ENT Ears, Nose, Mouth, and Throat: Denies change in voice, Denies dizziness, Reports neck pain, Denies sore throat and Denies throat swelling Cardiovascular Cardiovascular: Denies chest pain, Denies irregular heart rhythm, Denies lightheadedness, Denies palpitations, Denies dyspnea, Denies dyspnea on exertion and Denies orthopnea Respiratory Respiratory: Denies cough, Denies dyspnea, Denies dyspnea on exertion and Denies wheezing Gastrointestinal Gastrointestinal: Denies abdominal pain, Denies change in bowel habits, Denies diarrhea, Denies nausea and Denies vomiting Genitourinary Genitourinary: Denies hematuria, Denies flank pain, Denies urinary incontinence and Denies urinary urgency Musculoskeletal Musculoskeletal: Denies back pain, Denies muscle weakness, Reports neck pain, Denies numbness and Denies tingling Integumentary/Breasts Skin/Breast: Denies pruritus, Denies erythema, Denies rash and Reports wounds Neurologic Neurologic: Denies behavioral changes, Denies confusion, Denies dizziness, Denies frequent falls, Denies loss of vision, Denies numbness, Denies tingling and Denies weakness Psychiatric Psychiatric: Denies anxiety, Denies behavioral changes, Denies confusion, Denies depression, Denies homicidal ideation and Denies suicidal ideation Endocrine Endocrine: Denies fatigue, Denies flushing and Denies palpitations Hematologic/Lymphatic Hematologic/Lymphatic: Denies easy bruising Allergic/Immunologic Allergic/Immunologic: Denies urticaria, Denies throat swelling and Denies w heezing Patient History <Kimmie Sapp PA-C - Last Filed: 11/05/22 17:23> Medical History Back pain Heroin abuse Heroin addiction Surgical History History of fusion of cervical spine History of lumbar fusion Social History household members: spouse Smoking Status: Current every day smoker alcohol intake: former Smoking Status: Current every day smoker tobacco type: cigarettes alcohol intake frequency: 0-2 drinks per day Substance Use Type: former substance user, marijuana, heroin and methamphetamine Exam <Kimmie Sapp PA-C - Last Filed: 11/05/22 17:23> Narrative Exam Narrative: Const General:?cooperative, healthy appearing and comfortable HENOH Head:?normal to inspection Ears:?hearing grossly normal bilaterally Nose:?external nose normal Face and sinus:?normal facial exam and sinuses nontender Mouth:?oral mucosae normal Throat:?posterior oropharynx normal Eyes General:?appearance normal, both eyes and all related structures Neck Neck:?normal visual inspection and no lymphadenopathy noted Resp Effort & Inspection:?normal respiratory effort Auscultation:?clear to auscultation bilaterally Cardio Rate:?regular rate Rhythm:?regular rhythm Integumentary There are multiple scabbed wounds on bilateral forearms that do not appear to be infected. There is no discharge, erythema, swelling, warmth. The right big toenail appears to have been injured and fallen off. Again, no signs of inf ection. Musculoskeletal No midline tenderness to palpation. No paraspinal tenderness to palpation. There is full range of motion of the neck. Strength and sensation is intact. Patient is neurovascularly intact. Neuro General:?patient alert, patient awake and patient oriented x3 Initial Vital Signs Initial Vital Signs: Vital Signs Temperature 97.0 F L 11/05/22 12:19 Pulse Rate 94 H 11/05/22 12:19 Respiratory Rate 15 11/05/22 12:19 Blood Pressure 150/86 H 11/05/22 12:19 Pulse Oximetry 97 11/05/22 12:19 Oxygen Delivery Method Room Air 11/05/22 12:19 <DO Chris Newby Last Filed: 11/05/22 20:55> Initial Vital Signs Initial Vital Signs: Vital Signs Temperature 97.0 F L 11/05/22 12:19 Pulse Rate 94 H 11/05/22 12:19 Respiratory Rate 15 11/05/22 12:19 Blood Pressure 150/86 H 11/05/22 12:19 Pulse Oximetry 97 11/05/22 12:19 Oxygen Delivery Method Room Air 11/05/22 12:19 Course <Kimmie Sapp PA-C - Last Filed: 11/05/22 17:23> Orders Ordered: ED Orders 11/05/22 12:23 Consult to [facility] [place] [place] - Fashion Adviser Stat Vital Signs Vital signs: Vital Signs - 8 hr 11/05/22 13:25 Temperature 97.8 F Pulse Rate 78 Respiratory Rate 16 Blood Pressure 132/88 Pulse Oximetry 97 Oxygen Delivery Method Room Air <DO Chris Newby Last Filed: 11/05/22 20:55> Orders Ordered: ED Orders 11/05/22 12:23 Consult to [facility] Fashion Adviser Stat Vital Signs Vital signs: Vital Signs - 8 hr 11/05/22 13:25 Temperature 97.8 F Pulse Rate 78 Respiratory Rate 16 Blood Pressure 132/88 Pulse Oximetry 97 Oxygen Delivery Method Room Air MDM - Back Pain/Injury <Kimmie Sapp PA-C - Last Filed: 11/05/22 17:23> MDM Narrative Medical decision making narrative: 67-year-old male with chronic neck pain, history of IV drug abuse presents to the ED with worsening neck pain, wounds on his bilateral forearms and a right toe injury. Physical exam is reassuring with no midline tenderness to palpation or paraspinal tenderness to palpation. There is good range of motion of the neck. Patient's neck pain is likely due to an exacerbation of his chronic pain. Patient states that he was prescribed morphine sulfate previously, is having a hard time finding pain management doctors here. Referred patient to Dr. Preston for pain management. Patient states that he has been picking his forearm wounds, hoping that it will resolve if he picks on them. Counseled patient to stop picking on his wounds, perhaps bandaging them and keeping them clean and dry to heal. Patient's right toe nail appears to have avulsed and fallen off, which patient states is because of wearing the wrong shoes. There is no sign of infection or bleeding. Recommend patient keep the wound clean and dry, bandaged to allow it to heal. ED return precautions were discussed with patient. Patient verbalized understanding. Medical records reviewed: Yes Discharge Plan Departure Patient Disposition: Home Clinical Impression: Neck pain, chronic Instructions: Chronic Neck Pain Activity Restrictions/Additional Instructions: You were evaluated in the ED today for chronic neck pain. Please follow-up with Dr. Higinio Preston at [phone] for pain management. It appears that you have injured your right toe, and it appears that the toenail has broken off. Your arms and feet do not appear to be infected, please keep them clean and dry and bandaged to allow them to heal. Please refrain from picking on the wounds. You are being prescribed some cough medications for a cough. Return to the ED if you have any trouble breathing, you experience chest pain. Prescriptions: New benzonatate 200 mg capsule 200 mg PO TID PRN (Reason: cough) Qty: 15 0RF No Action metformin 1,000 mg tablet 1,000 mg PO BID naloxone 4 mg/actuation spray,non-aerosol 1 dose Intranasal DIRECTED Patient Comments: instill 1 spray in 1 NOSTRIL if needed for opioid overdose may re...(REFER TO PRESCRIPTION NOTES). tamsulosin 0.4 mg capsule,extended release 24hr 0.8 mg PO DAILY olanzapine 10 mg tablet 10 mg PO BID Patient Comments: take 1 tablet by mouth twice a day Pain Medication 1 dose PO DIRECTED Patient Comments: patient states he gets pain medication (along with Alprazolam) from mental health pharmacy in [facility] but ran out of both. does not recall name of med aspirin 325 mg Tablet,Delayed Release (Dr/Ec) 325 mg PO DAILY Qty: 90 0RF nitroglycerin [Nitrostat] 0.4 mg Tablet, Sublingual 0.4 mg Sublingual [id number] PRN (Reason: Chest Pain) Qty: 1 0RF alprazolam [Xanax] 1 mg tablet 1 mg PO BID PRN (Reason: anxiety) Qty: 14 0RF hydroxyzine HCl 25 mg tablet 25 mg PO Q8H PRN (Reason: Itching) Patient Comments: take 1 tablet by mouth every 8 hours if needed for itching FOR UP TO 10 DAYS doxycycline hyclate 100 mg tablet 100 mg PO BID Qty: 20 0RF ondansetron 4 mg tablet,disintegrating 4 mg PO Q8H PRN (Reason: nausea and vomiting) Qty: 10 0RF cyclobenzaprine 5 mg tablet 5 mg PO TID PRN (Reason: muscle spasm) Qty: 10 0RF lidocaine [Lidoderm] 5 % adhesive patch,medicated 2 patch TOP DAILY Qty: 30 0RF Rx Instructions: leave on most painful area for up to 12 hrs daily metoprolol tartrate 50 mg tablet 50 mg PO BID Patient Comments: take 1 tablet by mouth twice a day doxycycline hyclate 100 mg tablet 100 mg PO BID Qty: 20 0RF Referrals: Jacky Rios MD [Primary Care Provider] - Stand Alone Forms: Patient Portal/API <Carly Boyer DO - Last Filed: 11/05/22 20:55> Cosign ED Attending Cosignature Attestation: I was immediately available in the department for consultation. Documentation has been reviewed.
== END 2022-11-05 13:25 | disposition home or self-care (01) ==
PROVIDERS: Emergency Provider Student in an Organized Health Care Education/Training Program; PCP Family Medicine
DX: M54.2 Cervicalgia (principal)
CPT/HCPCS: 99281

== ENCOUNTER 2023-02-06 08:12 | Emergency (ER) | payer MEDICARE, MEDICAID, SELFPAY ==
[2017-11-10 08:47] VITALS: BMI 22.8
[2023-02-06 08:20] VITALS: BP 167/110; PULSE 65; RESP 16; TEMP 36.4; O2SAT 97
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
--- NOTE | 2023-02-06 08:32 | DI.RAD.S_ITS ---
PROCEDURE: XR CERVICAL SPINE 2V OR 3V INDICATIONS: neck pain after injury TECHNIQUE: 3 view(s) of the cervical spine were acquired. COMPARISON: [facility], CR, XR CERVICAL SPINE 2V OR 3V, 03/22/2022, 0:34. [facility], CR, XR CERVICAL SPINE 2V OR 3V, 03/15/2022, 1:18. FINDINGS: Bones: No fractures or dislocations to the C7 level. The lateral masses of C1 appear intact on the odontoid view. No suspicious bony lesions. Posterior and anterior surgical fusion of C5 through C7, without hardware complication. Grade 1 anterolisthesis C4 on C5 and C3 on C4, stable from prior. Facet arthrosis is severe at C4-5. Soft tissues: No prevertebral soft tissue swelling. IMPRESSION: Severe facet arthrosis at C4-5. Anterior and posterior surgical fusion at C5 through C7, without hardware complication. Stable grade 1 anterolisthesis of C4 on C5 and C3 on C4. Dictated by: Reed Quinteros M.D. on 02/06/2023 at 9:02 Approved by: Reed Quinteros M.D. on 02/06/2023 at 9:10
[2023-02-06 09:33] VITALS: BP 157/85; PULSE 83; O2SAT 100
== END 2023-02-06 09:40 | disposition home or self-care (01) ==
PROVIDERS: Emergency Provider Emergency Medicine; PCP Family Medicine
DX: M54.2 Cervicalgia (principal); Z79.899 Other long term (current) drug therapy
CPT/HCPCS: 72040; 99283

== ENCOUNTER 2023-05-14 15:14 | Emergency (ER) | payer MEDICARE, MEDICAID, SELFPAY ==
[2017-11-10 08:47] VITALS: BMI 22.8
[2023-05-14 15:19] VITALS: BP 170/96; PULSE 97; RESP 18; TEMP 36.7; O2SAT 100; BMI 25.1
--- NOTE | 2023-05-14 15:25 | DI.RAD.S_ITS ---
PROCEDURE: XR HAND LT MIN 3V INDICATIONS: swollen TECHNIQUE: 4 views of the hand(s) acquired. COMPARISON: [facility], CR, XR HAND RT MIN 3V, 11/14/2019, 20:03. [facility], CR, HAND 3V RIGHT, 05/24/2016, 17:28. FINDINGS: Bones: No acute fracture identified. No dislocation. Flexion at the 2nd digit DIP joint. Carpal bones are normally aligned. Mild degenerative change. No suspicious bony lesions. Soft tissues: No suspicious soft tissue calcifications. IMPRESSION: No fracture identified. Flexion at the 2nd digit DIP joint. If clinically indicated consider follow-up radiographs in 10-14 days. Dictated by: Gary Doherty M.D. on 05/14/2023 at 17:09 Approved by: Gary Doherty M.D. on 05/14/2023 at 17:12
--- NOTE | 2023-05-14 15:41 | ED.UPPEXIN ---
HPI - Extremity Injury (Upper) <Gaye Noonan PA-C - Last Filed: 05/14/23 17:18> General Chief Complaint: Extremity Injury, Upper Stated Complaint: lt hand injury Time Seen by Provider: 05/14/23 15:29 Source: patient Mode of arrival: Ambulatory History of Present Illness HPI narrative: 67-year-old male with a history of cellulitis and abscess, IV drug use presents with concern for a wound on his left thumb with swelling and redness. Patient states 2 days ago he was throwing a baseball and his hand was up over his head and it hit a Rafter above him. Since that time he is had gradually increasing redness around the area where the superficial layer of his skin was torn off. He is also noticed swelling and increased pain. He states he has had previous skin infections and is concerned this may be infected. He has not had pain with movement of his wrist or forearm and has not noticed any streaking or redness going up his arm from his thumb. He does have somewhat reduced mobility of his thumb 2nd to pain and swelling. He denies fevers, chills, nausea, vomiting, fatigue, change in appetite or any other symptoms. Related Data Home Medications Medication Instructions Recorded Confirmed Pain Medication 1 dose PO DIRECTED 11/10/17 11/10/17 metformin 1,000 mg tablet 1,000 mg PO BID 11/10/17 07/12/19 naloxone 4 mg/actuation nasal spray 1 dose intranasal DIRECTED 11/10/17 03/09/18 olanzapine 10 mg tablet 10 mg PO BID 11/10/17 08/21/18 tamsulosin 0.4 mg capsule 0.8 mg PO DAILY 11/10/17 07/12/19 metoprolol tartrate 50 mg tablet 50 mg PO BID 06/17/19 07/12/19 hydroxyzine HCl 25 mg tablet 25 mg PO Q8H PRN Itching 07/12/19 07/12/19 Previous Rx's Medication Instructions Recorded alprazolam 1 mg tablet (Xanax) 1 mg PO BID PRN anxiety #14 tabs 11/11/17 aspirin 325 mg tablet,delayed 325 mg PO DAILY #90 tabs 11/11/17 release nitroglycerin 0.4 mg sublingual 0.4 mg sublingual [id number] PRN 11/11/17 tablet (Nitrostat) Chest Pain #1 tab lidocaine 5 % topical patch 2 patch topical DAILY #30 ea 04/15/19 (Lidoderm) doxycycline hyclate 100 mg tablet 100 mg PO BID #20 tabs 11/14/19 cyclobenzaprine 5 mg tablet 5 mg PO TID PRN muscle spasm #10 05/30/20 tabs ondansetron 4 mg disintegrating 4 mg PO Q8H PRN nausea and 05/30/20 tablet vomiting #10 tabs doxycycline hyclate 100 mg tablet 100 mg PO BID #20 tabs 04/17/22 benzonatate 200 mg capsule 200 mg PO TID PRN cough #15 caps 11/05/22 doxycycline hyclate 100 mg capsule 100 mg PO BID cellulitis, MRSA hx 05/14/23 12 days #24 caps Allergies Allergy/AdvReac Type Severity Reaction Status Date / Time baclofen [BACLOFEN] Allergy Intermediate REACTS TO Verified 02/06/23 08:34 HIS METFORMIN ketorolac [From TORADOL] Allergy Intermediate HIVES Verified 02/06/23 08:34 Review of Systems <Gaye Noonan PA-C - Last Filed: 05/14/23 17:18> Review of Systems Narrative: See HPI Patient History <Gaye Noonan PA-C - Last Filed: 05/14/23 17:18> Medical History (Updated 05/14/23 @ 15:56 by Gaye Noonan PA-C) Back pain Heroin abuse Heroin addiction Surgical History History of fusion of cervical spine History of lumbar fusion Social History household members: spouse Smoking Status: Current every day smoker alcohol intake: former Smoking Status: Current every day smoker tobacco type: cigarettes alcohol intake frequency: 0-2 drinks per day Substance Use Type: former substance user, marijuana, heroin and methamphetamine Exam <Gaye Noonan PA-C - Last Filed: 05/14/23 17:18> Narrative Exam Narrative: GENERAL: 67 year old patient appears stated age. Well-developed patient, in mild distress. HEAD: Atraumatic. Normocephalic. EYES: Pupils equal round and reactive. Extraocular motions intact. No scleral icterus. No injection or drainage. ENT: Nose without bleeding, purulent drainage. Airway patent. NECK: Trachea midline. Non tender CARDIOVASCULAR: Regular rate and rhythm without murmurs, gallops, or rubs. RESPIRATORY: Clear to auscultation. Breath sounds equal bilaterally. No wheezes, rales, or rhonchi. GASTROINTESTINAL: Abdomen nondistended. EXTREMITIES: Moving all extremities, normal gait. Bilateral dorsum of the hands are somewhat cuauhtemoc/erythematous in appearance at baseline. The affected left thumb has a wound with superficial layer of skin absent and dry tissue at the center of the wound on the dorsum of the thumb it is approximately 2-1/2 cm x 4 cm in length. The edges do not appear erythematous however the dorsum of the thumb itself is moderately swollen somewhat tender and slightly warm to touch. There is no fluctuance or drainage except for a region adjacent to the nail where there is a small amount of clear thick fluid present. Patient's natural erythema of the dorsum of the hands is heightened around the wound of the left thumb dorsum with associated mild area a few cm proximal to the wound and over the dorsum of the hand. There is no streaking, no pain with flexion or extension of the wrist. Patient is able to move all fingers though somewhat decreased movement of the thumb 2nd to swelling and pain. NEURO: AOx3. SKIN: No rash or erythema of visible areas Initial Vital Signs Initial Vital Signs: Vital Signs Temperature 98.1 F 05/14/23 15:19 Pulse Rate 97 H 05/14/23 15:19 Respiratory Rate 18 05/14/23 15:19 Blood Pressure 170/96 H 05/14/23 15:19 Pulse Oximetry 100 05/14/23 15:19 Oxygen Delivery Method Room Air 05/14/23 15:19 <Martin Mix DO - Last Filed: 05/14/23 17:21> Initial Vital Signs Initial Vital Signs: Vital Signs Temperature 98.1 F 05/14/23 15:19 Pulse Rate 97 H 05/14/23 15:19 Respiratory Rate 18 05/14/23 15:19 Blood Pressure 170/96 H 05/14/23 15:19 Pulse Oximetry 100 05/14/23 15:19 Oxygen Delivery Method Room Air 05/14/23 15:19 Course <Gaye Noonan PA-C - Last Filed: 05/14/23 17:18> Orders Ordered: ED Orders 05/14/23 15:25 XR hand LT min 3V Stat 05/14/23 15:45 Wound Culture and Gram Stain Stat Discontinued Medications Bacitracin (Bacitracin Oint 0.9 Gm Pckt) 1 applic TOP NOW ONE Stop: 05/14/23 15:40 Last Admin: 05/14/23 16:01 Dose: 1 applic Documented By: NELSON Diphtheria/Tetanus/Acell Pertussis (Tet,Diph,Pertuss(Acell),Vac/Pf 0.5 Ml Syringe) 0.5 ml IM .ONCE ONE Stop: 05/14/23 15:52 Last Admin: 05/14/23 16:05 Dose: 0.5 ml Documented By: NELSON Doxycycline Hyclate (Doxycycline Hyclate 100 Mg Tablet) 100 mg PO NOW ONE Stop: 05/14/23 15:58 Last Admin: 05/14/23 16:06 Dose: 100 mg Documented By: NELSON Vital Signs Vital signs: Vital Signs - 8 hr 05/14/23 15:19 Temperature 98.1 F Pulse Rate 97 H Respiratory Rate 18 Blood Pressure 170/96 H Pulse Oximetry 100 Oxygen Delivery Method Room Air <Martin Mix DO - Last Filed: 05/14/23 17:21> Orders Ordered: ED Orders 05/14/23 15:25 XR hand LT min 3V Stat 05/14/23 15:45 Wound Culture and Gram Stain Stat Discontinued Medications Bacitracin (Bacitracin Oint 0.9 Gm Pckt) 1 applic TOP NOW ONE Stop: 05/14/23 15:40 Last Admin: 05/14/23 16:01 Dose: 1 applic Documented By: NELSON Diphtheria/Tetanus/Acell Pertussis (Tet,Diph,Pertuss(Acell),Vac/Pf 0.5 Ml Syringe) 0.5 ml IM .ONCE ONE Stop: 05/14/23 15:52 Last Admin: 05/14/23 16:05 Dose: 0.5 ml Documented By: NELSON Doxycycline Hyclate (Doxycycline Hyclate 100 Mg Tablet) 100 mg PO NOW ONE Stop: 05/14/23 15:58 Last Admin: 05/14/23 16:06 Dose: 100 mg Documented By: NELSON Vital Signs Vital signs: Vital Signs - 8 hr 05/14/23 15:19 Temperature 98.1 F Pulse Rate 97 H Respiratory Rate 18 Blood Pressure 170/96 H Pulse Oximetry 100 Oxygen Delivery Method Room Air MDM - Extremity Injury (Upper) <Gaye Noonan PA-C - Last Filed: 05/14/23 17:18> Differential Diagnosis Differential diagnosis: Likely other (wound infection, skin tear, IVDU, cellulitis, MRSA) Medical Records Attestation: I reviewed the patient's medical records. Imaging Data Extremity x-ray #1: Radiologist's Impression: [address] [id number] XRay Report Signed Patient: Jacobo Dash MR#: [id number] : 1955 Acct:[id number] Age/Sex: 67 / M Date of Service: 05/14/23 Loc: ED Accession Number: [id number] Procedure: XR hand LT min 3V Ordering Provider: Martin Mix D.O. PROCEDURE: XR HAND LT MIN 3V INDICATIONS: swollen TECHNIQUE: 4 views of the hand(s) acquired. COMPARISON: [facility], CR, XR HAND RT MIN 3V, 11/14/2019, 20:03. [facility], CR, HAND 3V RIGHT, 05/24/2016, 17:28. FINDINGS: Bones: No acute fracture identified. No dislocation. Flexion at the 2nd digit DIP joint. Carpal bones are normally aligned. Mild degenerative change. No suspicious bony lesions. Soft tissues: No suspicious soft tissue calcifications. IMPRESSION: No fracture identified. Flexion at the 2nd digit DIP joint. If clinically indicated consider follow-up radiographs in 10-14 days. Dictated by: Gary Doherty M.D. on 05/14/2023 at 17:09 Approved by: Gary Doherty M.D. on 05/14/2023 at 17:12 [facility] Narrative Medical decision making narrative: This is a 67-year-old male with a history of IV drug use and skin infections who presents with concern for skin infection on the dorsum of his left thumb with redness and swelling for 2 days. Originally sustained a wound when he was throwing a baseball and scraped his thumb against a Rafter overhead. Patient's tetanus is updated today in the ER. He has not had systemic symptoms and his vitals today are not consistent with sepsis he does appear to have a localized cellulitis no evidence of abscess no fluctuance however his thumb is moderately swollen a wound culture is obtained. An x-ray is also obtained On chart review he does have history of MRSA last seen with sensitivity to doxycycline and Bactrim from 2019 wound culture. Patient is placed on doxycycline today with initial dose provided in the ER. He is advised to monitor carefully for worsening symptoms, skin pen was used to delineate area of erythema. Patient is encouraged to see a wound care provider for follow-up or see his PCP in the next 2 days. He is advised he should come back to the ER immediately if he feels his symptoms are worsening. Return precautions provided, follow-up plan discussed, all questions answered. Discharge Plan Departure Patient Disposition: Home Clinical Impression: Cellulitis of hand, left, Wound infection, MRSA carrier Activity Restrictions/Additional Instructions: *You have been diagnosed with [cellulitis of your left thumb and infected wound] *What to do: *Please continue to take your regular medications as directed. [1 ] New medication prescriptions sent to your pharmacy: [ ] [ ] New medication written as a paper prescription [ ] No new medications given *Please follow up with your primary care provider in 2-3 days, call for an appointment. Let them know you were seen in the Emergency Department and that we ask that you be seen in follow up. We will electronically transmit a record of today's note if your PCP is in our system. You have an infection and some associated swelling/cellulitis at the site where you tore open your skin 2 days ago. Because you have a history of MRSA and frequent skin infections it is extremely important that you monitor carefully for worsening symptoms or if you do not improve with the antibiotics you get re-evaluated immediately even if you need to come back to the ER. I would strongly encourage you to see a wound care doctor or follow up with your primary care provider in the next 48 hours even if this is improving. We did an x-ray today of your hand which did not show any fractures, and took a wound culture the wound culture takes about 24-48 hours to result, I did place him on an antibiotic this should cover MRSA but occasionally oral antibiotics are not strong enough. If your wound is increasing in size or you are having pain going up her arm or streaking of redness up your arm or if you develop fevers or chills or have other concerns please make sure you get re-evaluated. *If you do not have a primary care provider please contact the [facility] Resource line at [phone]. They will ask some questions about your medical history and help get you set up with a doctor in the community. *Return to Emergency Department if you should have any new, worsening or concerning symptoms, such as [fever greater than 101 F, shaking chills, worsening pain, persistent vomiting or other bothersome symptoms] Prescriptions: New doxycycline hyclate 100 mg capsule 100 mg PO BID 12 Days Qty: 24 0RF No Action metformin 1,000 mg tablet 1,000 mg PO BID naloxone 4 mg/actuation spray,non-aerosol 1 dose Intranasal DIRECTED Patient Comments: instill 1 spray in 1 NOSTRIL if needed for opioid overdose may re...(REFER TO PRESCRIPTION NOTES). tamsulosin 0.4 mg capsule,extended release 24hr 0.8 mg PO DAILY olanzapine 10 mg tablet 10 mg PO BID Patient Comments: take 1 tablet by mouth twice a day Pain Medication 1 dose PO DIRECTED Patient Comments: patient states he gets pain medication (along with Alprazolam) from [facility] pharmacy in [facility] but ran out of both. does not recall name of med aspirin 325 mg Tablet,Delayed Release (Dr/Ec) 325 mg PO DAILY Qty: 90 0RF nitroglycerin [Nitrostat] 0.4 mg Tablet, Sublingual 0.4 mg Sublingual [id number] PRN (Reason: Chest Pain) Qty: 1 0RF alprazolam [Xanax] 1 mg tablet 1 mg PO BID PRN (Reason: anxiety) Qty: 14 0RF hydroxyzine HCl 25 mg tablet 25 mg PO Q8H PRN (Reason: Itching) Patient Comments: take 1 tablet by mouth every 8 hours if needed for itching FOR UP TO 10 DAYS doxycycline hyclate 100 mg tablet 100 mg PO BID Qty: 20 0RF ondansetron 4 mg tablet,disintegrating 4 mg PO Q8H PRN (Reason: nausea and vomiting) Qty: 10 0RF cyclobenzaprine 5 mg tablet 5 mg PO TID PRN (Reason: muscle spasm) Qty: 10 0RF lidocaine [Lidoderm] 5 % adhesive patch,medicated 2 patch TOP DAILY Qty: 30 0RF Rx Instructions: leave on most painful area for up to 12 hrs daily metoprolol tartrate 50 mg tablet 50 mg PO BID Patient Comments: take 1 tablet by mouth twice a day doxycycline hyclate 100 mg tablet 100 mg PO BID Qty: 20 0RF benzonatate 200 mg capsule 200 mg PO TID PRN (Reason: cough) Qty: 15 0RF Referrals: Jacky Rios MD [Primary Care Provider] - Stand Alone Forms: Patient Portal/API ED Sign-out <Martin Mix DO - Last Filed: 05/14/23 17:21> Cosign ED Attending Cosignature Attestation: Dr Mix Co-Sign Statement: I was available for consultation during this patient's emergency department visit. This chart is signed by myself for administrative purposes only. I did not have direct contact with this patient during this visit. They were seen independently by the APC.
[2023-05-14] MEDS: BACITRACIN OINT 0.9 GM PCKT 1 APPLIC TOP (16:01)
[2023-05-14] MEDS: TET,DIPH,PERTUSS(ACELL),VAC/PF 0.5 ML SYRINGE IM (16:05)
[2023-05-14] MEDS: DOXYCYCLINE HYCLATE 100 MG TABLET PO (16:06)
[2023-05-14 17:24] VITALS: BP 158/95; PULSE 84; RESP 18; O2SAT 100
== END 2023-05-14 17:24 | disposition home or self-care (01) ==
PROVIDERS: Emergency Provider Student in an Organized Health Care Education/Training Program; PCP Family Medicine
DX: L03.114 Cellulitis of left upper limb (principal); Z22.322 Carrier or suspected carrier of Methicillin resistant Staphylococcus aureus; Z23 Encounter for immunization
CPT/HCPCS: 73130; 87070; 87075; 87077; 87147; 87186; 87205; 90471; 99283; 99284; 90715

== ENCOUNTER 2023-06-21 16:56 | Emergency (ER) | payer MEDICARE, SELFPAY ==
[2017-11-10 08:47] VITALS: BMI 22.8
[2023-06-21 17:00] VITALS: BP 172/90; PULSE 79; RESP 18; TEMP 36.6; O2SAT 97; BMI 25.4
--- NOTE | 2023-06-21 17:07 | ED_ITS ---
HPI - Skin/Abscess/Foreign Bdy General Chief complaint: Skin/Abscess/Foreign Body Stated complaint: poss cellulitis tripped over yard tools Time Seen by Provider: 06/21/23 17:05 Source: patient Mode of arrival: Ambulatory Limitations: no limitations History of Present Illness HPI narrative: Patient is a 67-year-old male. He is here for evaluation of redness and swelling and discomfort to his right lower extremity. It has been worsening over the past several days. No fevers. Initial injury was reported to be when he tripped over some yardd tools. He also had a episode earlier today when he was having discomfort in his legs so he fell and hit his head. No loss of consciousness. He has not on blood thinners. Patient is here with his and other family members who were now helping with his medical management. Apparently he has not had any of his medications for some time. He denies chest pain or shortness of breath. Is having some paraspinal neck discomfort. Related Data Home Medications Medication Instructions Recorded Confirmed Pain Medication 1 dose PO DIRECTED 11/10/17 11/10/17 metformin 1,000 mg tablet 1,000 mg PO BID 11/10/17 07/12/19 naloxone 4 mg/actuation nasal spray 1 dose intranasal DIRECTED 11/10/17 03/09/18 olanzapine 10 mg tablet 10 mg PO BID 11/10/17 08/21/18 tamsulosin 0.4 mg capsule 0.8 mg PO DAILY 11/10/17 07/12/19 metoprolol tartrate 50 mg tablet 50 mg PO BID 06/17/19 07/12/19 hydroxyzine HCl 25 mg tablet 25 mg PO Q8H PRN Itching 07/12/19 07/12/19 Previous Rx's Medication Instructions Recorded alprazolam 1 mg tablet (Xanax) 1 mg PO BID PRN anxiety #14 tabs 11/11/17 aspirin 325 mg tablet,delayed 325 mg PO DAILY #90 tabs 11/11/17 release nitroglycerin 0.4 mg sublingual 0.4 mg sublingual [id number] PRN 11/11/17 tablet (Nitrostat) Chest Pain #1 tab lidocaine 5 % topical patch 2 patch topical DAILY #30 ea 04/15/19 (Lidoderm) doxycycline hyclate 100 mg tablet 100 mg PO BID #20 tabs 11/14/19 cyclobenzaprine 5 mg tablet 5 mg PO TID PRN muscle spasm #10 05/30/20 tabs ondansetron 4 mg disintegrating 4 mg PO Q8H PRN nausea and 05/30/20 tablet vomiting #10 tabs doxycycline hyclate 100 mg tablet 100 mg PO BID #20 tabs 04/17/22 benzonatate 200 mg capsule 200 mg PO TID PRN cough #15 caps 11/05/22 cephalexin 500 mg capsule 500 mg PO QID 7 days #28 caps 06/21/23 metformin 1,000 mg tablet 1,000 mg PO BID #60 tabs 06/21/23 metoprolol tartrate 50 mg tablet 50 mg PO BID #60 tabs 06/21/23 Allergies Allergy/AdvReac Type Severity Reaction Status Date / Time baclofen [BACLOFEN] Allergy Intermediate REACTS TO Verified 02/06/23 08:34 HIS METFORMIN ketorolac [From TORADOL] Allergy Intermediate HIVES Verified 02/06/23 08:34 Review of Systems Constitutional Constitutional: Reports system reviewed and no additional complaints, except as documented Cardiovascular Cardiovascular: Reports system reviewed and no additional complaints, except as documented Musculoskeletal Musculoskeletal: Reports system reviewed and no additional complaints, except as documented Integumentary/Breasts Skin/Breast: Reports system reviewed and no additional complaints, except as documented Neurologic Neurologic: Reports system reviewed and no additional complaints, except as documented Hematologic/Lymphatic On Anticoagulants: No Patient History Medical History (Updated 06/21/23 @ 18:18 by Martin Mix DO) Back pain Heroin abuse Heroin addiction Surgical History History of fusion of cervical spine History of lumbar fusion Social History household members: spouse Smoking Status: Current every day smoker alcohol intake: former Smoking Status: Current every day smoker tobacco type: cigarettes alcohol intake frequency: 0-2 drinks per day Substance Use Type: former substance user, marijuana, heroin and methamphetamine Exam Initial Vital Signs Initial Vital Signs: Vital Signs Temperature 97.9 F 06/21/23 17:00 Pulse Rate 79 06/21/23 17:00 Respiratory Rate 18 06/21/23 17:00 Blood Pressure 172/90 H 06/21/23 17:00 Pulse Oximetry 97 06/21/23 17:00 Oxygen Delivery Method Room Air 06/21/23 17:00 HENMI Head: normal to inspection and normocephalic Resp Effort & Inspection: normal respiratory effort Cardio Rate: regular rate Back/Spine/Pelvis Cervical Spine: cervical muscular tenderness and No cervical spinal tenderness Skin Other: Patient does have redness and warmth and circumferential erythema from his ankle to just distal to his knee. Multiple wounds on his lower extremity in various stages of healing. No crepitus felt. No blisters. No pustules. Extrem Other: Swelling to the right lower extremity distal to the knee. Course Orders Ordered: ED Orders 06/21/23 17:16 CT cervical spine wo con Stat CT head/brain wo con Stat Discontinued Medications Cephalexin HCl (Cephalexin 250 Mg Capsule) 500 mg PO NOW ONE Stop: 06/21/23 17:23 Last Admin: 06/21/23 17:31 Dose: 500 mg Documented By: TC Ibuprofen (Ibuprofen 400 Mg Tablet) 800 mg PO NOW ONE Stop: 06/21/23 17:23 Last Admin: 06/21/23 17:30 Dose: 800 mg Documented By: TC Metformin HCl (Metformin Hcl 500 Mg Tablet) 1,000 mg PO NOW ONE Stop: 06/21/23 18:26 Metoprolol Succinate (Metoprolol Er 50 Mg Tablet) 50 mg PO NOW ONE Stop: 06/21/23 18:24 Vital Signs Vital signs: Vital Signs - 8 hr 06/21/23 17:00 06/21/23 18:24 Temperature 97.9 F Pulse Rate 79 105 H Respiratory Rate 18 18 Blood Pressure 172/90 H 162/97 H Pulse Oximetry 97 100 Oxygen Delivery Method Room Air Room Air MDM - Skin/Abscess/Foreign Bdy Imaging Data CT scan - head: Radiologist's Impression: PROCEDURE: CT HEAD/BRAIN WO CON INDICATIONS: fall with confusion TECHNIQUE: Noncontrast 4.5 mm thick angled axial sections acquired from the foramen magnum to the vertex, with coronal and sagittal reformats. For radiation dose reduction, the following was used: automated exposure control, adjustment of mA and/or kV according to patient size. COMPARISON: Merged With [facility], CT, CT CERVICAL SPINE WO CON, 06/21/2023, 17:24. Merged With [facility], CT, CT HEAD/BRAIN WO CON, 03/25/2022, 0:34. FINDINGS: Image quality: This examination is limited by involuntary motion artifact. Mild streak artifact can be seen through the skull base. CSF spaces: Basal cisterns are patent. No extra-axial fluid collections. The ventricles are symmetric in size and shape. Brain: No intracranial bleeds or masses. There is cerebral volume loss for age, with resultant ventricular and sulcal prominence. There are periventricular and deep white matter chronic small vessel ischemic changes. There is intracranial internal carotid artery atherosclerosis. Skull and face: Minimal scalp hematoma can be seen posteriorly, as on series 2 image 29. No associated calvarial fracture can be seen. Calvarium and visualized facial bones appear intact, without suspicious lesions. Sinuses: Visualized sinuses and mastoids are clear. IMPRESSION: No acute intracranial hemorrhage is seen. No acute intracranial process is seen. Minimal posterior scalp hematoma seen, without an associated calvarial fracture. CT - cervical spine: Radiologist's Impression: PROCEDURE: CT CERVICAL SPINE WO CON INDICATIONS: fall with neck pain TECHNIQUE: Noncontrast 3 mm thick sections acquired from the skull base to the T4 level. Sagittal and coronal reformats were then constructed. For radiation dose reduction, the following was used: automated exposure control, adjustment of mA and/or kV according to patient size. COMPARISON: Merged With [facility], CT, CT HEAD/BRAIN WO CON, 06/21/2023, 17:24. Merged With [facility], CT, CT CERVICAL SPINE WO CON, 03/25/2022, 0:34. FINDINGS: Image quality: Excellent. Bones: No fractures or dislocations. Visualized superior ribs are intact. Extensive fixation hardware can be seen anteriorly and posteriorly. No findings of hardware failure or hardware loosening are seen. Significant underlying degenerative changes are seen, which appears similar to the prior. Soft tissues: Prevertebral soft tissues are normal in thickness. No paravertebral hematomas. No apical pneumothoraces. IMPRESSION: Negative for acute fracture. Postoperative and degenerative changes are seen. MDM Narrative Medical decision making narrative: CT scan of head and cervical spine are unremarkable. He does have what appears to be cellulitis to his right lower extremity. No fevers. No crepitus. Given the appearance I do have low suspicion for DVT. Not tachycardic. Was given antibiotics here in the ER in his tolerating oral intake. He also ambulated while here in the emergency department. Per their request I refilled his metop rolol and metformin. They were given return precautions. They expressed understanding and agreement. Discharge Plan Departure Patient Disposition: Home Clinical Impression: Cellulitis Instructions: DI for Cellulitis -- Adult Activity Restrictions/Additional Instructions: It is important that Jacobo has a primary care provider. You can contact [phone] during business hours to help set up a primary doctor if needed. [facility] [place]. Please take them as directed. Return to the emergency department for new symptoms. Prescriptions: New metformin 1,000 mg tablet 1,000 mg PO BID Qty: 60 0RF metoprolol tartrate 50 mg tablet 50 mg PO BID Qty: 60 0RF cephalexin 500 mg capsule 500 mg PO QID 7 Days Qty: 28 0RF No Action metformin 1,000 mg tablet 1,000 mg PO BID naloxone 4 mg/actuation spray,non-aerosol 1 dose Intranasal DIRECTED Patient Comments: instill 1 spray in 1 NOSTRIL if needed for opioid overdose may re...(REFER TO PRESCRIPTION NOTES). tamsulosin 0.4 mg capsule,extended release 24hr 0.8 mg PO DAILY olanzapine 10 mg tablet 10 mg PO BID Patient Comments: take 1 tablet by mouth twice a day Pain Medication 1 dose PO DIRECTED Patient Comments: patient states he gets pain medication (along with Alprazolam) from mental health pharmacy in [facility] but ran out of both. does not recall name of med aspirin 325 mg Tablet,Delayed Release (Dr/Ec) 325 mg PO DAILY Qty: 90 0RF nitroglycerin [Nitrostat] 0.4 mg Tablet, Sublingual 0.4 mg Sublingual [id number] PRN (Reason: Chest Pain) Qty: 1 0RF alprazolam [Xanax] 1 mg tablet 1 mg PO BID PRN (Reason: anxiety) Qty: 14 0RF hydroxyzine HCl 25 mg tablet 25 mg PO Q8H PRN (Reason: Itching) Patient Comments: take 1 tablet by mouth every 8 hours if needed for itching FOR UP TO 10 DAYS doxycycline hyclate 100 mg tablet 100 mg PO BID Qty: 20 0RF ondansetron 4 mg tablet,disintegrating 4 mg PO Q8H PRN (Reason: nausea and vomiting) Qty: 10 0RF cyclobenzaprine 5 mg tablet 5 mg PO TID PRN (Reason: muscle spasm) Qty: 10 0RF lidocaine [Lidoderm] 5 % adhesive patch,medicated 2 patch TOP DAILY Qty: 30 0RF Rx Instructions: leave on most painful area for up to 12 hrs daily metoprolol tartrate 50 mg tablet 50 mg PO BID Patient Comments: take 1 tablet by mouth twice a day doxycycline hyclate 100 mg tablet 100 mg PO BID Qty: 20 0RF benzonatate 200 mg capsule 200 mg PO TID PRN (Reason: cough) Qty: 15 0RF Referrals: Jacky Rios MD [Primary Care Provider] - Stand Alone Forms: Patient Portal/API
--- NOTE | 2023-06-21 17:16 | DI.CT.S_ITS ---
PROCEDURE: CT CERVICAL SPINE WO CON INDICATIONS: fall with neck pain TECHNIQUE: Noncontrast 3 mm thick sections acquired from the skull base to the T4 level. Sagittal and coronal reformats were then constructed. For radiation dose reduction, the following was used: automated exposure control, adjustment of mA and/or kV according to patient size. COMPARISON: [facility], CT, CT HEAD/BRAIN WO CON, 06/21/2023, 17:24. [facility], CT, CT CERVICAL SPINE WO CON, 03/25/2022, 0:34. FINDINGS: Image quality: Excellent. Bones: No fractures or dislocations. Visualized superior ribs are intact. Extensive fixation hardware can be seen anteriorly and posteriorly. No findings of hardware failure or hardware loosening are seen. Significant underlying degenerative changes are seen, which appears similar to the prior. Soft tissues: Prevertebral soft tissues are normal in thickness. No paravertebral hematomas. No apical pneumothoraces. IMPRESSION: Negative for acute fracture. Postoperative and degenerative changes are seen. Dictated by: Hema Domínguez M.D. on 06/21/2023 at 17:12 Approved by: Hema Domínguze M.D. on 06/21/2023 at 17:13
--- NOTE | 2023-06-21 17:16 | DI.CT.S_ITS ---
PROCEDURE: CT HEAD/BRAIN WO CON INDICATIONS: fall with confusion TECHNIQUE: Noncontrast 4.5 mm thick angled axial sections acquired from the foramen magnum to the vertex, with coronal and sagittal reformats. For radiation dose reduction, the following was used: automated exposure control, adjustment of mA and/or kV according to patient size. COMPARISON: [facility], CT, CT CERVICAL SPINE WO CON, 06/21/2023, 17:24. [facility], CT, CT HEAD/BRAIN WO CON, 03/25/2022, 0:34. FINDINGS: Image quality: This examination is limited by involuntary motion artifact. Mild streak artifact can be seen through the skull base. CSF spaces: Basal cisterns are patent. No extra-axial fluid collections. The ventricles are symmetric in size and shape. Brain: No intracranial bleeds or masses. There is cerebral volume loss for age, with resultant ventricular and sulcal prominence. There are periventricular and deep white matter chronic small vessel ischemic changes. There is intracranial internal carotid artery atherosclerosis. Skull and face: Minimal scalp hematoma can be seen posteriorly, as on series 2 image 29. No associated calvarial fracture can be seen. Calvarium and visualized facial bones appear intact, without suspicious lesions. Sinuses: Visualized sinuses and mastoids are clear. IMPRESSION: No acute intracranial hemorrhage is seen. No acute intracranial process is seen. Minimal posterior scalp hematoma seen, without an associated calvarial fracture. Dictated by: Hema Domínguez M.D. on 06/21/2023 at 17:10 Approved by: Hema Domínguez M.D. on 06/21/2023 at 17:11
[2023-06-21] MEDS: IBUPROFEN 400 MG TABLET 800 MG PO (17:30)
[2023-06-21] MEDS: cephALEXin 250 MG CAPSULE 500 MG PO (17:31)
[2023-06-21 18:24] VITALS: BP 162/97; PULSE 105; RESP 18; O2SAT 100
[2023-06-21 18:38] VITALS: PULSE 105
[2023-06-21] MEDS: METOPROLOL ER 50 MG TABLET PO (18:38)
[2023-06-21] MEDS: METFORMIN HCL 500 MG TABLET 1000 MG PO (18:38)
[2023-06-21 18:41] VITALS: BP 162/97; PULSE 105; RESP 18; O2SAT 100
== END 2023-06-21 18:44 | disposition home or self-care (01) ==
PROVIDERS: Emergency Provider Emergency Medicine; PCP Family Medicine
DX: L03.115 Cellulitis of right lower limb (principal); M54.2 Cervicalgia; W01.0XXA Fall on same level from slipping, tripping and stumbling without subsequent striking against object, initial encounter
CPT/HCPCS: 70450; 72125; 99284

== ENCOUNTER 2023-08-07 03:19 | Emergency (ER) | payer MEDICARE, MEDICAID, SELFPAY ==
[2017-11-10 08:47] VITALS: BMI 22.8
[2023-08-07 03:30] VITALS: BP 193/108; PULSE 109; RESP 20; TEMP 35.9; O2SAT 100; BMI 22.1
--- NOTE | 2023-08-07 03:34 | ED_ITS ---
HPI - Extremity Problem General Chief complaint: Extremity Injury, Lower Stated complaint: legs cramping Time Seen by Provider: 08/07/23 03:28 History of Present Illness HPI Narrative: 67-year-old homeless male with history of arthritis, polysubstance use, tobacco abuse presents for several days of ?leg cramping?. Patient states he has been sleeping out in the cold and his legs, particularly his thighs are beginning to cramp up and be painful. Denies injury. Related Data Home Medications Medication Instructions Recorded Confirmed Pain Medication 1 dose PO DIRECTED 11/10/17 11/10/17 metformin 1,000 mg tablet 1,000 mg PO BID 11/10/17 07/12/19 naloxone 4 mg/actuation nasal spray 1 dose intranasal DIRECTED 11/10/17 03/09/18 olanzapine 10 mg tablet 10 mg PO BID 11/10/17 08/21/18 tamsulosin 0.4 mg capsule 0.8 mg PO DAILY 11/10/17 07/12/19 metoprolol tartrate 50 mg tablet 50 mg PO BID 06/17/19 07/12/19 hydroxyzine HCl 25 mg tablet 25 mg PO Q8H PRN Itching 07/12/19 07/12/19 Previous Rx's Medication Instructions Recorded alprazolam 1 mg tablet (Xanax) 1 mg PO BID PRN anxiety #14 tabs 11/11/17 aspirin 325 mg tablet,delayed 325 mg PO DAILY #90 tabs 11/11/17 release nitroglycerin 0.4 mg sublingual 0.4 mg sublingual [id number] PRN 11/11/17 tablet (Nitrostat) Chest Pain #1 tab lidocaine 5 % topical patch 2 patch topical DAILY #30 ea 04/15/19 (Lidoderm) doxycycline hyclate 100 mg tablet 100 mg PO BID #20 tabs 11/14/19 cyclobenzaprine 5 mg tablet 5 mg PO TID PRN muscle spasm #10 05/30/20 tabs ondansetron 4 mg disintegrating 4 mg PO Q8H PRN nausea and 05/30/20 tablet vomiting #10 tabs doxycycline hyclate 100 mg tablet 100 mg PO BID #20 tabs 04/17/22 benzonatate 200 mg capsule 200 mg PO TID PRN cough #15 caps 11/05/22 metformin 1,000 mg tablet 1,000 mg PO BID #60 tabs 06/21/23 metoprolol tartrate 50 mg tablet 50 mg PO BID #60 tabs 06/21/23 Allergies Allergy/AdvReac Type Severity Reaction Status Date / Time baclofen [BACLOFEN] Allergy Intermediate REACTS TO Verified 02/06/23 08:34 HIS METFORMIN ketorolac [From TORADOL] Allergy Intermediate HIVES Verified 02/06/23 08:34 Review of Systems Review of Systems Narrative: Negative except as noted above Patient History Medical History (Updated 08/07/23 @ 06:29 by Estela Antony MD) Back pain Heroin abuse Heroin addiction Surgical History History of fusion of cervical spine History of lumbar fusion Social History household members: spouse Smoking Status: Current every day smoker alcohol intake: former Smoking Status: Current every day smoker tobacco type: cigarettes alcohol intake frequency: 0-2 drinks per day Substance Use Type: former substance user, marijuana, heroin and methamphetamine Exam Narrative Exam Narrative: Const: Awake, alert, appears chronically unwell, disheveled, older than stated age Cardiac: tachycardia, regular rhythm RESP: unlabored, clear bilaterally, no wheezing GI: Soft, nontender, nondistended, no rebound, no guarding MSK: Atraumatic, full range of motion, pulses equal, palpable TP pulses bilaterally Skin: Warm, Dry, intact, old, healed scars bilateral distal lower extremities Neuro: AO x3, CN II-XII grossly intact, moves all extremities Initial Vital Signs Initial Vital Signs: Vital Signs Temperature 96.7 F L 08/07/23 03:30 Pulse Rate 109 H 08/07/23 03:30 Respiratory Rate 20 08/07/23 03:30 Blood Pressure 193/108 H 08/07/23 03:30 Pulse Oximetry 100 08/07/23 03:30 Oxygen Delivery Method Room Air 08/07/23 03:30 Course Orders Ordered: ED Orders 08/07/23 03:55 CBC Auto Diff [Complete Blood Count AUTO DIFF] Stat CK [Creatine Kinase] Stat CMP [Comprehensive Metabolic Panel] Stat MAG [Magnesium] Stat Discontinued Medications Acetaminophen (Acetaminophen 325 Mg Tablet) 975 mg PO NOW ONE Stop: 08/07/23 04:41 Last Admin: 08/07/23 04:59 Dose: 975 mg Documented By: CHICO Lidocaine (Lidocaine 5% Patch) 1 each TOP NOW ONE Stop: 08/07/23 04:42 Last Admin: 08/07/23 04:59 Dose: 1 each Documented By: CHICO Vital Signs Vital signs: Vital Signs - 8 hr 08/07/23 03:30 08/07/23 04:00 08/07/23 05:07 Temperature 96.7 F L Pulse Rate 109 H 118 H 96 H Respiratory Rate 20 16 18 Blood Pressure 193/108 H 136/92 H 140/91 H Pulse Oximetry 100 100 100 Oxygen Delivery Method Room Air Room Air Room Air MDM - Extremity (Nontraumatic) Differential Diagnosis Differential diagnosis: Likely herpes zoster, gout and cellulitis Lab Data 08/07/23 03:55 08/07/23 03:55 Labs: Lab Results 08/07/23 Range/Units 03:55 WBC 6.3 (4.5-11.0) X10^3/uL RBC 5.03 (4.5-5.9) X10^6/uL Hgb 13.6 (13.5-17.5) g/dL Hct 41.0 (41-53) % MCV 81.4 (80-100) fL MCH 27.1 (26-34) PG MCHC 33.3 (30-36) % RDW 16.9 H (11.6-14.8) % Plt Count 165 (150-400) X10^3/uL Neut % (Auto) 69.1 (50-75) % Lymph % (Auto) 16.5 L (25-40) % Mcdowell % (Auto) 7.9 (3-14) % Eos % (Auto) 3.6 (2-4) % Baso % (Auto) 2.9 H (0-2) % Neut # (Auto) 4400 (3828-9531) /uL Lymph # (Auto) 1000 L (9636-1740) /uL Mcdowell # (Auto) 500 (0-900) /uL Eos # (Auto) 200 (0-450) /uL Baso # (Auto) 200 H (0-100) /uL Sodium 142 (137-145) mmol/L Potassium 4.4 (3.4-5.1) mmol/L Chloride 106 (98-107) mmol/L Carbon Dioxide 24 (22-32) mmol/L BUN 16 (9-20) mg/dL Creatinine 1.00 (0.66-1.25) mg/dL Estimated GFR > 60 (>60) mL/min BUN/Creatinine Ratio 16.0 (6-22) Glucose 152 H (80-110) mg/dL Calcium 9.4 (8.4-10.2) mg/dL Magnesium 1.9 (1.6-2.3) mg/dL Total Bilirubin 0.6 (0.2-1.3) mg/dL AST 63 H (17-59) IU/L ALT 44 (<50) IU/L Alkaline Phosphatase 144 H (38-126) U/L Total Creatine Kinase 441 H (55-170) U/L Total Protein 9.2 H (6.3-8.2) g/dL Albumin 4.6 (3.5-5.0) g/dL Globulin 4.6 H (1.7-4.1) g/dL Albumin/Globulin Ratio 1.0 (1.0-2.8) MDM Narrative Medical decision making narrative: Bilateral lower extremity cramping in patient who has been sleeping outside. Patient is disheveled, with poor hygiene, however when skin is exposed it was normal temperature, there are no rashes or lesions, no wounds. Patient states that cramping is worse in his bilateral thighs. Patient does have a history of amphetamine use and is slightly tachycardic. IV fluids ordered. Laboratory work is reviewed. WBC count 6.3, hemoglobin 13.6, sodium 142, potassium 4.4, magnesium 1.9. CK level 441. Patient has received IV fluids and heart rate has come down. Electrolytes are within normal limits and patient was not in rhabdomyolysis. Patient reassessed, sitting upright in bed in no acute distress. He requested medications for his chronic lumbar back pain, which were given. Patient discharged in stable condition. Discharge Plan Departure Patient Disposition: Home Clinical Impression: Bilateral leg cramps, Unsheltered homelessness Chronic lumbar pain Qualifiers: Back pain laterality: unspecified Sciatica presence: without sciatica Qualified Code(s): M54.50 - Low back pain, unspecified Instructions: Nocturnal Leg Cramps Prescriptions: No Action metformin 1,000 mg tablet 1,000 mg PO BID naloxone 4 mg/actuation spray,non-aerosol 1 dose Intranasal DIRECTED Patient Comments: instill 1 spray in 1 NOSTRIL if needed for opioid overdose may re...(REFER TO PRESCRIPTION NOTES). tamsulosin 0.4 mg capsule,extended release 24hr 0.8 mg PO DAILY olanzapine 10 mg tablet 10 mg PO BID Patient Comments: take 1 tablet by mouth twice a day Pain Medication 1 dose PO DIRECTED Patient Comments: patient states he gets pain medication (along with Alprazolam) from mental health pharmacy in [facility] but ran out of both. does not recall name of med aspirin 325 mg Tablet,Delayed Release (Dr/Ec) 325 mg PO DAILY Qty: 90 0RF nitroglycerin [Nitrostat] 0.4 mg Tablet, Sublingual 0.4 mg Sublingual [id number] PRN (Reason: Chest Pain) Qty: 1 0RF alprazolam [Xanax] 1 mg tablet 1 mg PO BID PRN (Reason: anxiety) Qty: 14 0RF hydroxyzine HCl 25 mg tablet 25 mg PO Q8H PRN (Reason: Itching) Patient Comments: take 1 tablet by mouth every 8 hours if needed for itching FOR UP TO 10 DAYS doxycycline hyclate 100 mg tablet 100 mg PO BID Qty: 20 0RF ondansetron 4 mg tablet,disintegrating 4 mg PO Q8H PRN (Reason: nausea and vomiting) Qty: 10 0RF cyclobenzaprine 5 mg tablet 5 mg PO TID PRN (Reason: muscle spasm) Qty: 10 0RF lidocaine [Lidoderm] 5 % adhesive patch,medicated 2 patch TOP DAILY Qty: 30 0RF Rx Instructions: leave on most painful area for up to 12 hrs daily metoprolol tartrate 50 mg tablet 50 mg PO BID Patient Comments: take 1 tablet by mouth twice a day doxycycline hyclate 100 mg tablet 100 mg PO BID Qty: 20 0RF benzonatate 200 mg capsule 200 mg PO TID PRN (Reason: cough) Qty: 15 0RF metformin 1,000 mg tablet 1,000 mg PO BID Qty: 60 0RF metoprolol tartrate 50 mg tablet 50 mg PO BID Qty: 60 0RF Referrals: Jacky Rios MD [Primary Care Provider] - Stand Alone Forms: Patient Portal/API
[2023-08-07 04:00] VITALS: BP 136/92; PULSE 118; RESP 16; O2SAT 100
[2023-08-07 04:05] LABS: Add Manual Diff / Slide Review NO; Basophils Absolute Auto 200 /uL (0-100); Basophils Percent Auto 2.9 % (0-2); Eosinophils Absolute Auto 200 /uL (0-450); Eosinophils Percent Auto 3.6 % (2-4); Hemoglobin 13.6 g/dL (13.5-17.5); Lymphocytes Absolute Auto 1000 /uL (1100-4500); Lymphocytes Percent Auto 16.5 % (25-40); Mean Corpuscular HGB Conc 33.3 % (30-36); Mean Corpuscular Hemoglobin 27.1 PG (26-34); Mean Corpuscular Volume 81.4 fL (80-100); Monocytes Absolute Auto 500 /uL (0-900); Monocytes Percent Auto 7.9 % (3-14); Neutrophils Absolute Auto 4400 /uL (1500-7000); Neutrophils Percent Auto 69.1 % (50-75); Platelet Count 165 X10^3/uL (150-400); Red Blood Cell Count 5.03 X10^6/uL (4.5-5.9); Red Cell Distribution Width 16.9 % (11.6-14.8); White Blood Cell Count 6.3 X10^3/uL (4.5-11.0)
[2023-08-07 04:29] LABS: Alanine Aminotransferase 44 IU/L (<50); Albumin 4.6 g/dL (3.5-5.0); Alkaline Phosphatase 144 U/L (38-126); Aspartate Aminotransferase 63 IU/L (17-59); Bilirubin Total 0.6 mg/dL (0.2-1.3); Blood Urea Nitrogen 16 mg/dL (9-20); Calcium 9.4 mg/dL (8.4-10.2); Carbon Dioxide 24 mmol/L (22-32); Chloride 106 mmol/L (98-107); Creatine Kinase 441 U/L (55-170); Estimated Glomerular Filt Rate > 60 mL/min (>60); Globulin 4.6 g/dL (1.7-4.1); Glucose 152 mg/dL (80-110); HEMOLYSIS < 15 (0-50); Magnesium 1.9 mg/dL (1.6-2.3); Potassium 4.4 mmol/L (3.4-5.1); Sodium 142 mmol/L (137-145); Total Protein 9.2 g/dL (6.3-8.2)
[2023-08-07] MEDS: LIDOCAINE 5% PATCH 1 EACH TOP (04:59)
[2023-08-07] MEDS: ACETAMINOPHEN 325 MG TABLET 975 MG PO (04:59)
[2023-08-07 05:07] VITALS: BP 140/91; PULSE 96; RESP 18; O2SAT 100
== END 2023-08-07 05:09 | disposition home or self-care (01) ==
PROVIDERS: Emergency Provider Emergency Medicine; PCP Family Medicine
DX: R25.2 Cramp and spasm (principal); M54.50 Low back pain, unspecified; Z79.899 Other long term (current) drug therapy; Z59.02 Unsheltered homelessness
CPT/HCPCS: 36415; 80053; 82550; 83735; 85025; 99283; 99284

== ENCOUNTER 2023-08-11 16:09 | Emergency (ER) | payer MEDICARE, MEDICAID, SELFPAY ==
[2017-11-10 08:47] VITALS: BMI 22.8
[2023-08-11 16:25] VITALS: BP 137/96; PULSE 105; RESP 20; TEMP 36.5; O2SAT 100; BMI 26.2
--- NOTE | 2023-08-11 16:38 | DI.CT.S_ITS ---
PROCEDURE: CT HEAD/BRAIN WO CON INDICATIONS: fall, hit head TECHNIQUE: Noncontrast 4.5 mm thick angled axial sections acquired from the foramen magnum to the vertex, with coronal and sagittal reformats. For radiation dose reduction, the following was used: automated exposure control, adjustment of mA and/or kV according to patient size. COMPARISON: [facility], CT, CT HEAD/BRAIN WO CON, 06/21/2023, 17:24. FINDINGS: Image quality: Diagnostic. CSF spaces: Basal cisterns are patent. No extra-axial fluid collections. The ventricles are symmetric in size and shape. Brain: No intracranial bleeds or masses. There is cerebral volume loss for age, with resultant ventricular and sulcal prominence. There are periventricular and deep white matter chronic small vessel ischemic changes. There is intracranial internal carotid artery atherosclerosis. Skull and face: Calvarium and visualized facial bones appear intact, without suspicious lesions. Sinuses: Visualized sinuses and mastoids are clear. IMPRESSION: No acute intracranial pathology. Dictated by: Brodie Rebolledo M.D. on 08/11/2023 at 17:18 Approved by: Brodie Rebolledo M.D. on 08/11/2023 at 17:19
--- NOTE | 2023-08-11 16:38 | DI.CT.S_ITS ---
PROCEDURE: CT CERVICAL SPINE WO CON INDICATIONS: fall, hit head TECHNIQUE: Noncontrast 3 mm thick sections acquired from the skull base to the T4 level. Sagittal and coronal reformats were then constructed. For radiation dose reduction, the following was used: automated exposure control, adjustment of mA and/or kV according to patient size. COMPARISON: [facility], CT, CT CERVICAL SPINE WO CON, 06/21/2023, 17:24. FINDINGS: Image quality: Excellent. Bones: No fractures or dislocations. Visualized superior ribs are intact. Remote ACDF from C5 through C7. No evidence of hardware failure or loosening. Chronic mild anterolisthesis of C3 on C4 and C4 on C5. Remote posterior lateral lola and facet screw fixation with intact hardware. Soft tissues: Prevertebral soft tissues are normal in thickness. No paravertebral hematomas. No apical pneumothoraces. IMPRESSION: 1. No acute cervical fracture or dislocation. 2. Intact anterior and posterior cervical fusion hardware. 3. Cervical spondylosis. Dictated by: Brodie Rebolledo M.D. on 08/11/2023 at 17:15 Approved by: Brodie Rebolledo M.D. on 08/11/2023 at 17:18
--- NOTE | 2023-08-11 16:41 | PC.NURSE ---
GROUP LEADER [employer]ICONDUCTOR TESTING note: 0430 Assisted in getting patient situated in his room. Patient was helped to put on scrubs. Patient clothing, pants, shoes, and jewelry (2 bracelets and 1 necklace) was put in belonging safe. Patient was calm and follows commands. Complaining of pain in his neck and back RN is aware.
[2023-08-11 17:04] LABS: Appearance Urine UA CLEAR; Bilirubin Urine UA 1+ (NEGATIVE); Color Urine UA YELLOW; Glucose Urine UA NEGATIVE (Negative); Ketones Urine UA NEGATIVE (NEGATIVE); Leukocyte Esterase Urine UA NEGATIVE (NEGATIVE); Nitrite Urine UA NEGATIVE (Negative); Occult Blood Urine UA NEGATIVE (Negative); Protein Urine UA TRACE (Negative); Specific Gravity Urine UA >=1.030 (1.000-1.035)
[2023-08-11 17:04] LABS: Basophils Absolute Auto 100 /uL (0-100); Basophils Percent Auto 1.1 % (0-2); Eosinophils Absolute Auto 100 /uL (0-450); Eosinophils Percent Auto 2.1 % (2-4); Hemoglobin 12.2 g/dL (13.5-17.5); Lymphocytes Absolute Auto 1200 /uL (1100-4500); Lymphocytes Percent Auto 18.9 % (25-40); Mean Corpuscular Hemoglobin 26.3 PG (26-34); Mean Corpuscular Volume 79.8 fL (80-100); Monocytes Absolute Auto 700 /uL (0-900); Monocytes Percent Auto 11.3 % (3-14); Neutrophils Absolute Auto 4200 /uL (1500-7000); Neutrophils Percent Auto 66.6 % (50-75); Red Blood Cell Count 4.64 X10^6/uL (4.5-5.9); Red Cell Distribution Width 16.5 % (11.6-14.8); White Blood Cell Count 6.3 X10^3/uL (4.5-11.0)
[2023-08-11 17:06] LABS: UR Morphine/Opiate cutoff 300 Negative (Negative); Ur Creatinine Normal (Normal); Ur Specific Gravity Normal (Normal); Urine Amphetamines Positive (Negative); Urine Barbiturates Negative (Negative); Urine Benzodiazepines Negative (Negative); Urine Cocaine Negative (Negative); Urine MDMA Positive (Negative); Urine Methadone Negative (Negative); Urine Methamphetamines Positive (Negative); Urine Oxycodone Negative (Negative); Urine Phencyclidine Negative (Negative); Urine Tetrahydrocannabinol Negative (Negative); Urine Tricyclic Antidepressant Negative (Negative); Urine pH Normal (Normal)
[2023-08-11] MEDS: SODIUM CHLORIDE 0.9% 1,000 ML 1000 ML IV (17:06)
[2023-08-11 17:12] LABS: Add Manual Diff / Slide Review SLIDE REVIEW
[2023-08-11 17:13] LABS: Acetaminophen < 10 ug/mL (10-30); Alanine Aminotransferase 40 IU/L (<50); Albumin 4.4 g/dL (3.5-5.0); Albumin Globulin Ratio 1.1 (1.0-2.8); Alkaline Phosphatase 78 U/L (38-126); Aspartate Aminotransferase 64 IU/L (17-59); BUN Creatinine Ratio 21.5 (6-22); Bilirubin Total 1.1 mg/dL (0.2-1.3); Blood Urea Nitrogen 23 mg/dL (9-20); Calcium 8.9 mg/dL (8.4-10.2); Carbon Dioxide 18 mmol/L (22-32); Chloride 111 mmol/L (98-107); Estimated Glomerular Filt Rate > 60 mL/min (>60); Ethanol (ETOH) < 10 mg/dL; Globulin 4.1 g/dL (1.7-4.1); Glucose 94 mg/dL (80-110); HEMOLYSIS < 15 (0-50); Salicylate < 1.0 mg/dL (<20); Sodium 141 mmol/L (137-145); Total Protein 8.5 g/dL (6.3-8.2)
[2023-08-11 17:17] LABS: Bacteria Urine Occasional (0-1); Ictotest Urine Negative (Negative); RBC Urine None Seen (0-5/HPF); Squamous Epithelial Cell Urine 0-1 /HPF (0-5/HPF); Urine Volume 10mL (spun); WBC Urine 1-5/HPF (0-5/HPF)
[2023-08-11 17:18] LABS: Culture Indicated Urine Cult Not Indicated; Mucus Urine 1+ (Negative)
[2023-08-11 17:25] LABS: Platelet Estimate Decreased on smear; RBC Morphology Normal Morphology
[2023-08-11 17:49] LABS: Thyroid Stimulating Hormone 0.623 uIU/mL (0.47-4.68)
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
[2023-08-11] MEDS: ACETAMINOPHEN 325 MG TABLET 650 MG PO (18:25)
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
[2023-08-11 18:40] VITALS: BP 157/83; PULSE 93; RESP 18; O2SAT 100
--- NOTE | 2023-08-18 09:17 | PC.NURSE ---
Adult Protective Services called requesting demographic information. Given what is on file.
== END 2023-08-11 18:52 | disposition home or self-care (01) ==
PROVIDERS: Emergency Medicine; Emergency Provider Emergency Medicine; PCP Family Medicine
DX: M54.2 Cervicalgia (principal); S09.90XA Unspecified injury of head, initial encounter; F15.10 Other stimulant abuse, uncomplicated; W19.XXXA Unspecified fall, initial encounter
CPT/HCPCS: 36415; 70450; 72125; 80053; 80305; 80320; 80329; 81001; 84439; 84443; 85025; 99284; G0480

== ENCOUNTER 2023-09-05 20:18 | Emergency (ER) | payer MEDICARE, MEDICAID, SELFPAY ==
[2017-11-10 08:47] VITALS: BMI 22.8
[2023-09-05 20:22] VITALS: BP 160/89; PULSE 105; RESP 18; TEMP 36.4; O2SAT 96; BMI 23.6
--- NOTE | 2023-09-05 21:55 | PC.NURSE ---
patient called and not in the lobby at this time.
== END 2023-09-05 20:55 | disposition left against medical advice (07) ==
PROVIDERS: Emergency Provider Emergency Medicine; PCP Family Medicine
CPT/HCPCS: 99281

== ENCOUNTER 2023-09-06 02:41 | Emergency (ER) | payer MEDICARE, MEDICAID, SELFPAY ==
[2017-11-10 08:47] VITALS: BMI 22.8
[2023-09-06 02:51] VITALS: BP 141/90; PULSE 70; RESP 18; TEMP 36.7; O2SAT 96; BMI 26.6
--- NOTE | 2023-09-06 03:30 | PC.NURSE ---
pt given a sandwich and herb redd
--- NOTE | 2023-09-06 03:35 | PC.NURSE ---
registration came to nurses station and stated they saw the pt leave, upon entering it was noted the sandwich had not been touch and a small amout of herb rainey was gone from the can
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
== END 2023-09-06 03:40 | disposition left against medical advice (07) ==
PROVIDERS: Emergency Provider Emergency Medicine; PCP Family Medicine
DX: R07.0 Pain in throat (principal)
CPT/HCPCS: 99281